=== PATIENT | male | born 1945 | race Caucasian/White ===

== ENCOUNTER 2017-05-10 14:10 | Emergency (ER) | payer SELFPAY, OTHER | END 2017-05-10 23:36 | disposition left against medical advice (07) | LOC: E/R 14:10 | DX: Z53.21 Procedure and treatment not carried out due to patient leaving prior to being seen by health care provider (principal) ==

== ENCOUNTER 2017-05-23 10:08 | Emergency (ER) | payer OTHER ==
[2017-05-23] MEDS: SOD CHLORIDE 0.9% 1,000 ML IV (12:56)
[2017-05-23] MEDS: morphine 4 MG/ML VIAL IV (12:57)
[2017-05-23] MEDS: ONDANSETRON 4 MG INJ IV (12:57)
[2017-05-23 13:14] LABS: ADD MAN DIFF? NO
[2017-05-23 13:15] LABS: WHITE BLOOD COUNT 6.9 10^3/ul (4.8-10.8)
[2017-05-23 13:15] LABS: BASOPHIL # 0.1 10^3/ul (0.0-0.1); BASOPHILS % 1.2 % (0.0-2.0); EOSINOPHILS # 0.1 10^3/ul (0.0-0.5); EOSINOPHILS % 1.9 % (0.0-7.0); HEMOGLOBIN 8.7 g/dl (14.0-18.0); MEAN CORPUSCULAR HEMOGLOBIN 21.8 pg (29.0-33.0); MEAN CORPUSCULAR VOLUME 75.2 fl (82.0-101.0); MEAN PLATELET VOLUME 9.5 fl (7.4-10.4); MONOCYTE # 0.5 10^3/ul (0.3-0.9); MONOCYTES % 7.4 % (0.0-11.0); NEUTROPHIL # 5.1 10^3/ul (1.6-7.5); NEUTROPHILS % 74.1 % (39.0-77.0); PLATELET COUNT 401 10^3/UL (140-415); RED BLOOD COUNT 3.99 10^6/ul (4.70-6.10); RED CELL DISTRIBUTION WIDTH 15.6 % (11.5-14.5)
[2017-05-23 13:38] LABS: ALBUMIN/GLOBULIN RATIO 1.45; ANION GAP 16 (8-16)
[2017-05-23 13:39] LABS: ALANINE AMINOTRANSFERASE 18 IU/L (13-69); ALBUMIN 4.8 g/dl (3.3-4.9); ALKALINE PHOSPHATASE 69 IU/L (42-121); ASPARTATE AMINO TRANSFERASE 17 IU/L (15-46); BILIRUBIN,INDIRECT 0.1 mg/dl (0-1.1); BILIRUBIN,TOTAL 0.1 mg/dl (0.2-1.3); BLOOD UREA NITROGEN 14 mg/dl (7-20); CALCIUM 9.8 mg/dl (8.4-10.2); CARBON DIOXIDE 24 mmol/L (21-31); CHLORIDE 106 mmol/L (97-110); CREATININE 1.06 mg/dl (0.61-1.24); GLUCOSE 92 mg/dl (70-220); LIPASE 108 U/L (23-300); POTASSIUM 4.1 mmol/L (3.5-5.1); SODIUM 142 mmol/L (135-144); TOTAL PROTEIN 8.1 g/dl (6.1-8.1)
[2017-05-23] MEDS: IOHEXOL 300MG/ML 150 ML BTL (14:11)
[2017-05-23] MEDS: SOD CHLORIDE 0.9% 100 ML (14:11)
== END 2017-05-23 18:27 | disposition left against medical advice (07) ==
LOC: E/R 10:08
DX: R10.84 Generalized abdominal pain (principal); R19.7 Diarrhea, unspecified
CPT/HCPCS: 36415; 74177; 80053; 83690; 85025; 96374; 96375; 99285-25

== ENCOUNTER 2017-06-20 16:26 | Emergency (ER) | payer OTHER | END 2017-06-20 20:45 | disposition left against medical advice (07) | LOC: E/R 16:26 | DX: Z53.21 Procedure and treatment not carried out due to patient leaving prior to being seen by health care provider (principal) ==

== ENCOUNTER 2017-06-26 06:49 | Emergency (ER) | payer OTHER ==
[2017-06-26] MEDS: FAMOTIDINE 20 MG INJ IV (08:07)
[2017-06-26] MEDS: LIDOCAINE/MYLANTA 40 ML BTL PO (08:39)
[2017-06-26 08:40] LABS: ADD MAN DIFF? NO
[2017-06-26 08:42] LABS: ABNORMAL IP MESSAGE 1; BASOPHIL # 0.1 10^3/ul (0.0-0.1); BASOPHILS % 0.9 % (0.0-2.0); EOSINOPHILS # 0.1 10^3/ul (0.0-0.5); EOSINOPHILS % 1.2 % (0.0-7.0); HEMATOCRIT 30.9 % (42.0-52.0); HEMOGLOBIN 8.9 g/dl (14.0-18.0); LYMPHOCYTES # 0.8 10^3/ul (0.8-2.9); LYMPHOCYTES % 9.3 % (15.0-51.0); MEAN CORPUSCULAR HEMOGLOBIN 21.3 pg (29.0-33.0); MEAN CORPUSCULAR HGB CONC 28.8 g/dl (32.0-37.0); MEAN CORPUSCULAR VOLUME 73.9 fl (82.0-101.0); MEAN PLATELET VOLUME 9.3 fl (7.4-10.4); MONOCYTE # 0.7 10^3/ul (0.3-0.9); MONOCYTES % 7.7 % (0.0-11.0); NEUTROPHIL # 7.3 10^3/ul (1.6-7.5); NEUTROPHILS % 80.6 % (39.0-77.0); PLATELET COUNT 424 10^3/UL (140-415); POSITIVE DIFF @See below; RED BLOOD COUNT 4.18 10^6/ul (4.70-6.10); RED CELL DISTRIBUTION WIDTH 17.8 % (11.5-14.5)
[2017-06-26 08:42] LABS: WHITE BLOOD COUNT 9.1 10^3/ul (4.8-10.8)
[2017-06-26 09:00] LABS: ALANINE AMINOTRANSFERASE 23 IU/L (13-69); ALBUMIN 4.7 g/dl (3.3-4.9); ALBUMIN/GLOBULIN RATIO 1.51; ALKALINE PHOSPHATASE 70 IU/L (42-121); ANION GAP 17 (8-16); ASPARTATE AMINO TRANSFERASE 17 IU/L (15-46); BILIRUBIN,INDIRECT 0.1 mg/dl (0-1.1); BILIRUBIN,TOTAL 0.1 mg/dl (0.2-1.3); BLOOD UREA NITROGEN 15 mg/dl (7-20); CALCIUM 9.5 mg/dl (8.4-10.2); CARBON DIOXIDE 28 mmol/L (21-31); CHLORIDE 102 mmol/L (97-110); CREATININE 1.03 mg/dl (0.61-1.24); GLUCOSE 105 mg/dl (70-220); LIPASE 129 U/L (23-300); POTASSIUM 3.9 mmol/L (3.5-5.1); SODIUM 143 mmol/L (135-144); TOTAL PROTEIN 7.8 g/dl (6.1-8.1)
== END 2017-06-26 10:47 | disposition home or self-care (01) ==
LOC: E/R 06:49
DX: R10.84 Generalized abdominal pain (principal); R40.2142 Coma scale, eyes open, spontaneous, at arrival to emergency department; R40.2362 Coma scale, best motor response, obeys commands, at arrival to emergency department; R40.2252 Coma scale, best verbal response, oriented, at arrival to emergency department; Z87.891 Personal history of nicotine dependence
CPT/HCPCS: 36415; 74176; 80053; 83690; 85025; 99284-25

== ENCOUNTER 2017-08-03 03:30 | Inpatient (IN) | payer OTHER ==
[2017-08-03 10:23] LABS: ADD MAN DIFF? NO
[2017-08-03 10:28] LABS: WHITE BLOOD COUNT 8.9 10^3/ul (4.8-10.8)
[2017-08-03 10:28] LABS: BASOPHIL # 0.1 10^3/ul (0.0-0.1); BASOPHILS % 0.9 % (0.0-2.0); EOSINOPHILS # 0.2 10^3/ul (0.0-0.5); HEMATOCRIT 41.1 % (42.0-52.0); HEMOGLOBIN 12.4 g/dl (14.0-18.0); LYMPHOCYTES # 1.3 10^3/ul (0.8-2.9); LYMPHOCYTES % 14.2 % (15.0-51.0); MEAN CORPUSCULAR HEMOGLOBIN 23.4 pg (29.0-33.0); MEAN CORPUSCULAR HGB CONC 30.2 g/dl (32.0-37.0); MEAN CORPUSCULAR VOLUME 77.4 fl (82.0-101.0); MEAN PLATELET VOLUME 9.4 fl (7.4-10.4); MONOCYTE # 0.9 10^3/ul (0.3-0.9); MONOCYTES % 9.6 % (0.0-11.0); NEUTROPHIL # 6.5 10^3/ul (1.6-7.5); NEUTROPHILS % 72.8 % (39.0-77.0); PLATELET COUNT 300 10^3/UL (140-415); RED BLOOD COUNT 5.31 10^6/ul (4.70-6.10); RED CELL DISTRIBUTION WIDTH 20.9 % (11.5-14.5)
[2017-08-03] MEDS: PANTOPRAZOLE 40 MG INJ IV ×2 (10:30→11:27)
[2017-08-03 10:49] LABS: INR 0.83; PROTIME 11.5 Sec (11.9-14.9); PT RATIO 0.9
[2017-08-03] MEDS: FAMOTIDINE 20 MG INJ IV (11:27)
[2017-08-03] MEDS: ONDANSETRON 4 MG INJ IV (11:27)
[2017-08-03] MEDS: morphine 4 MG/ML VIAL IV (11:27)
[2017-08-03] MEDS: SOD CHLORIDE 0.9% 1,000 ML IV (11:27)
[2017-08-03 12:12] LABS: ALANINE AMINOTRANSFERASE 12 IU/L (13-69); ALBUMIN 3.9 g/dl (3.3-4.9); ALBUMIN/GLOBULIN RATIO 1.18; ALKALINE PHOSPHATASE 76 IU/L (42-121); ANION GAP 15 (8-16); ASPARTATE AMINO TRANSFERASE 14 IU/L (15-46); BILIRUBIN,INDIRECT 0.1 mg/dl (0-1.1); BILIRUBIN,TOTAL 0.1 mg/dl (0.2-1.3); BLOOD UREA NITROGEN 19 mg/dl (7-20); CALCIUM 9.3 mg/dl (8.4-10.2); CARBON DIOXIDE 28 mmol/L (21-31); CHLORIDE 104 mmol/L (97-110); CREATININE 0.96 mg/dl (0.61-1.24); GLUCOSE 93 mg/dl (70-220); LIPASE 110 U/L (23-300); POTASSIUM 4.2 mmol/L (3.5-5.1); SODIUM 143 mmol/L (135-144); TOTAL PROTEIN 7.2 g/dl (6.1-8.1)
[2017-08-03 12:32] LABS: TROPONIN-I < 0.012 ng/ml (0.00-0.12)
[2017-08-03] MEDS ORDERED: morphine 2 MG INJ IV (17:00)
[2017-08-03] MEDS ORDERED: DOCUSATE SODIUM 100 MG CAP PO (17:00)
[2017-08-03] MEDS ORDERED: ONDANSETRON 4 MG INJ IV (17:00)
[2017-08-03] MEDS ORDERED: **FLU VACCINE PREVIOUSLY DISPENSED XX (20:00)
[2017-08-03] MEDS: morphine LIQ (10 MG/5 ML) CUP PO (20:15)
[2017-08-03] MEDS: POLYETHYLENE GLYCOL 17 GM PACKET PO (20:15)
[2017-08-04] MEDS: PANTOPRAZOLE 40 MG INJ IV (05:43)
[2017-08-04 06:18] LABS: ADD MAN DIFF? NO
[2017-08-04 06:21] LABS: BASOPHIL # 0.1 10^3/ul (0.0-0.1); BASOPHILS % 1.5 % (0.0-2.0); EOSINOPHILS # 0.3 10^3/ul (0.0-0.5); EOSINOPHILS % 5.2 % (0.0-7.0); HEMATOCRIT 36.1 % (42.0-52.0); HEMOGLOBIN 10.6 g/dl (14.0-18.0); LYMPHOCYTES # 1.4 10^3/ul (0.8-2.9); LYMPHOCYTES % 26.9 % (15.0-51.0); MEAN CORPUSCULAR HEMOGLOBIN 23.3 pg (29.0-33.0); MEAN CORPUSCULAR HGB CONC 29.4 g/dl (32.0-37.0); MEAN CORPUSCULAR VOLUME 79.3 fl (82.0-101.0); MEAN PLATELET VOLUME 9.2 fl (7.4-10.4); MONOCYTE # 0.7 10^3/ul (0.3-0.9); MONOCYTES % 12.5 % (0.0-11.0); NEUTROPHIL # 2.8 10^3/ul (1.6-7.5); NEUTROPHILS % 53.3 % (39.0-77.0); PLATELET COUNT 261 10^3/UL (140-415); RED BLOOD COUNT 4.55 10^6/ul (4.70-6.10); RED CELL DISTRIBUTION WIDTH 20.1 % (11.5-14.5)
[2017-08-04 06:21] LABS: WHITE BLOOD COUNT 5.2 10^3/ul (4.8-10.8)
[2017-08-04 06:42] LABS: HEMOGLOBIN A1C 5.2 % (0-5.9)
[2017-08-04 06:55] LABS: ALANINE AMINOTRANSFERASE 15 IU/L (13-69); ALBUMIN 3.9 g/dl (3.3-4.9); ALBUMIN/GLOBULIN RATIO 1.39; ALKALINE PHOSPHATASE 62 IU/L (42-121); ANION GAP 12 (8-16); ASPARTATE AMINO TRANSFERASE 15 IU/L (15-46); BILIRUBIN,INDIRECT 0.1 mg/dl (0-1.1); BILIRUBIN,TOTAL 0.1 mg/dl (0.2-1.3); BLOOD UREA NITROGEN 13 mg/dl (7-20); CALCIUM 9.2 mg/dl (8.4-10.2); CARBON DIOXIDE 28 mmol/L (21-31); CHLORIDE 107 mmol/L (97-110); CREATININE 1.03 mg/dl (0.61-1.24); GLUCOSE 86 mg/dl (70-220); PHOSPHORUS 3.6 mg/dl (2.5-4.9); POTASSIUM 4.4 mmol/L (3.5-5.1); SODIUM 143 mmol/L (135-144); TOTAL PROTEIN 6.7 g/dl (6.1-8.1)
[2017-08-04 07:17] LABS: CARCINOEMBRYONIC ANTIGEN 0.8 ng/ml (0.0-5.0)
[2017-08-04] MEDS: morphine LIQ (10 MG/5 ML) CUP PO ×2 (08:29→18:10)
[2017-08-04] MEDS: POLYETHYLENE GLYCOL 17 GM PACKET PO ×2 (08:29→20:00)
[2017-08-04] MEDS: DOCUSATE SODIUM 250 MG CAP PO (11:13)
[2017-08-04 14:08] LABS: IRON 28 ug/dl (35-150)
[2017-08-04 14:17] LABS: % IRON SATURATION 7 % SAT (22-52); TOTAL IRON BINDING CAPACITY 375 ug/dl (241-421)
[2017-08-04 14:44] LABS: FERRITIN 11.5 ng/ml (11.1-264.0)
[2017-08-04] MEDS: MAGNESIUM CITRATE 300 ML BTL PO ×2 (15:00→15:29)
[2017-08-04] MEDS: BISACODYL (EC) 5 MG TAB PO (17:30)
[2017-08-04] MEDS: ACETAMINOPHEN 325 MG TAB PO (19:59)
[2017-08-04] MEDS: ZOLPIDEM 5 MG TAB PO (21:06)
[2017-08-05] MEDS: morphine LIQ (10 MG/5 ML) CUP PO ×2 (01:24→05:22)
[2017-08-05] MEDS: PANTOPRAZOLE 40 MG INJ IV (05:18)
[2017-08-05] MEDS: DOCUSATE SODIUM 250 MG CAP PO (05:22)
[2017-08-05 05:39] LABS: ADD MAN DIFF? NO
[2017-08-05 05:46] LABS: BASOPHIL # 0.1 10^3/ul (0.0-0.1); BASOPHILS % 1.5 % (0.0-2.0); EOSINOPHILS # 0.3 10^3/ul (0.0-0.5); EOSINOPHILS % 4.9 % (0.0-7.0); HEMATOCRIT 35.2 % (42.0-52.0); HEMOGLOBIN 10.6 g/dl (14.0-18.0); LYMPHOCYTES # 1.4 10^3/ul (0.8-2.9); LYMPHOCYTES % 26.6 % (15.0-51.0); MEAN CORPUSCULAR HEMOGLOBIN 23.4 pg (29.0-33.0); MEAN CORPUSCULAR HGB CONC 30.1 g/dl (32.0-37.0); MEAN CORPUSCULAR VOLUME 77.7 fl (82.0-101.0); MEAN PLATELET VOLUME 9.1 fl (7.4-10.4); MONOCYTE # 0.6 10^3/ul (0.3-0.9); MONOCYTES % 11.4 % (0.0-11.0); NEUTROPHILS % 55.4 % (39.0-77.0); PLATELET COUNT 263 10^3/UL (140-415); RED BLOOD COUNT 4.53 10^6/ul (4.70-6.10); RED CELL DISTRIBUTION WIDTH 19.9 % (11.5-14.5)
[2017-08-05 05:46] LABS: WHITE BLOOD COUNT 5.3 10^3/ul (4.8-10.8)
[2017-08-05 06:16] LABS: PHOSPHORUS 3.4 mg/dl (2.5-4.9)
[2017-08-05 06:16] LABS: CHOL/HDL RATIO 3.9 RATIO; CHOLESTEROL 223 mg/dl (100-200); HDL CHOLESTEROL 56 mg/dl (31-75); LDL CHOLESTEROL,CALCULATED 143 mg/dl; MAGNESIUM 2.1 mg/dl (1.7-2.5); TRIGLYCERIDES 120 mg/dl (0-149)
[2017-08-05 06:22] LABS: ALANINE AMINOTRANSFERASE 22 IU/L (13-69); ALBUMIN 3.7 g/dl (3.3-4.9); ALBUMIN/GLOBULIN RATIO 1.19; ALKALINE PHOSPHATASE 66 IU/L (42-121); ANION GAP 14 (8-16); ASPARTATE AMINO TRANSFERASE 13 IU/L (15-46); BILIRUBIN,INDIRECT 0.1 mg/dl (0-1.1); BILIRUBIN,TOTAL 0.1 mg/dl (0.2-1.3); BLOOD UREA NITROGEN 12 mg/dl (7-20); CALCIUM 9.2 mg/dl (8.4-10.2); CARBON DIOXIDE 27 mmol/L (21-31); CHLORIDE 105 mmol/L (97-110); CREATININE 1.01 mg/dl (0.61-1.24); GLUCOSE 82 mg/dl (70-220); POTASSIUM 4.2 mmol/L (3.5-5.1); SODIUM 142 mmol/L (135-144); TOTAL PROTEIN 6.8 g/dl (6.1-8.1)
[2017-08-05] MEDS: POLYETHYLENE GLYCOL 17 GM PACKET PO (08:37)
== END 2017-08-05 13:58 | disposition home or self-care (01) | DRG 392 ==
LOC: MS2 17:58 → E/R 03:30 → MS2 12:24
PROVIDERS: Internal Medicine
DX: K59.00 Constipation, unspecified (principal); D64.9 Anemia, unspecified
CPT/HCPCS: 36415; 74176; 80053; 80061; 82378; 82728; 83036; 83540; 83690; 83735; 84100; 84484; 85025; 85610; 93005; 96374; 96375; 99285-25

== ENCOUNTER 2017-08-28 10:07 | Emergency (ER) | payer OTHER ==
[2017-08-28 11:35] LABS: ADD MAN DIFF? NO
[2017-08-28 11:38] LABS: WHITE BLOOD COUNT 7.1 10^3/ul (4.8-10.8)
[2017-08-28 11:38] LABS: BASOPHILS % 0.4 % (0.0-2.0); EOSINOPHILS # 0.1 10^3/ul (0.0-0.5); EOSINOPHILS % 0.7 % (0.0-7.0); HEMATOCRIT 41.2 % (42.0-52.0); HEMOGLOBIN 12.3 g/dl (14.0-18.0); LYMPHOCYTES # 0.7 10^3/ul (0.8-2.9); LYMPHOCYTES % 9.7 % (15.0-51.0); MEAN CORPUSCULAR HEMOGLOBIN 23.4 pg (29.0-33.0); MEAN CORPUSCULAR HGB CONC 29.9 g/dl (32.0-37.0); MEAN CORPUSCULAR VOLUME 78.5 fl (82.0-101.0); MEAN PLATELET VOLUME 8.8 fl (7.4-10.4); MONOCYTE # 0.4 10^3/ul (0.3-0.9); MONOCYTES % 6.2 % (0.0-11.0); NEUTROPHIL # 5.9 10^3/ul (1.6-7.5); NEUTROPHILS % 82.7 % (39.0-77.0); PLATELET COUNT 339 10^3/UL (140-415); RED BLOOD COUNT 5.25 10^6/ul (4.70-6.10); RED CELL DISTRIBUTION WIDTH 18.5 % (11.5-14.5)
[2017-08-28 12:01] LABS: ALANINE AMINOTRANSFERASE 15 IU/L (13-69); ALBUMIN 4.3 g/dl (3.3-4.9); ALBUMIN/GLOBULIN RATIO 1.19; ALKALINE PHOSPHATASE 73 IU/L (42-121); ANION GAP 15 (8-16); ASPARTATE AMINO TRANSFERASE 23 IU/L (15-46); BILIRUBIN,INDIRECT 0.1 mg/dl (0-1.1); BILIRUBIN,TOTAL 0.1 mg/dl (0.2-1.3); BLOOD UREA NITROGEN 17 mg/dl (7-20); CALCIUM 10.2 mg/dl (8.4-10.2); CARBON DIOXIDE 28 mmol/L (21-31); CHLORIDE 106 mmol/L (97-110); CREATININE 1.02 mg/dl (0.61-1.24); GLUCOSE 115 mg/dl (70-220); LIPASE 119 U/L (23-300); POTASSIUM 4.6 mmol/L (3.5-5.1); SODIUM 144 mmol/L (135-144); TOTAL PROTEIN 7.9 g/dl (6.1-8.1)
[2017-08-28 12:14] LABS: TROPONIN-I < 0.012 ng/ml (0.00-0.12)
[2017-08-28] MEDS: morphine 4 MG/ML VIAL IV (12:15)
== END 2017-08-28 13:37 | disposition home or self-care (01) ==
LOC: E/R 10:07
DX: R10.13 Epigastric pain (principal)
CPT/HCPCS: 36415; 71045; 74018; 80053; 83690; 84484; 85025; 93005; 96374; 99285-25

== ENCOUNTER 2017-09-11 10:44 | Emergency (ER) | payer OTHER ==
[2017-09-11] MEDS: LIDOCAINE/MYLANTA 40 ML BTL PO (11:10)
[2017-09-11] MEDS: ONDANSETRON (ODT) 4 MG TAB ODT (11:11)
== END 2017-09-11 12:55 | disposition home or self-care (01) ==
LOC: E/R 10:44
DX: R10.13 Epigastric pain (principal); R11.0 Nausea; R40.2142 Coma scale, eyes open, spontaneous, at arrival to emergency department; R40.2252 Coma scale, best verbal response, oriented, at arrival to emergency department; R40.2362 Coma scale, best motor response, obeys commands, at arrival to emergency department
CPT/HCPCS: 99284; Z7502

== ENCOUNTER 2017-09-12 03:45 | Emergency (ER) | payer OTHER ==
[2017-09-12] MEDS: CEFEPIME 2GM/50 ML (PMX) 50 ML IVPB (04:53)
[2017-09-12] MEDS: SODIUM CHLORIDE 0.9% 1L BAG IV* (04:53)
[2017-09-12 06:19] LABS: ADD MAN DIFF? NO
[2017-09-12 06:35] LABS: ABNORMAL IP MESSAGE 1; BASOPHILS % 0.2 % (0.0-2.0); HEMATOCRIT 37.5 % (42.0-52.0); HEMOGLOBIN 11.1 g/dl (14.0-18.0); LYMPHOCYTES # 0.5 10^3/ul (0.8-2.9); MEAN CORPUSCULAR HEMOGLOBIN 23.4 pg (29.0-33.0); MEAN CORPUSCULAR HGB CONC 29.6 g/dl (32.0-37.0); MEAN CORPUSCULAR VOLUME 79.1 fl (82.0-101.0); MEAN PLATELET VOLUME 9.5 fl (7.4-10.4); MONOCYTE # 1.2 10^3/ul (0.3-0.9); MONOCYTES % 6.8 % (0.0-11.0); NEUTROPHIL # 15.6 10^3/ul (1.6-7.5); NEUTROPHILS % 89.4 % (39.0-77.0); PLATELET COUNT 328 10^3/UL (140-415); POSITIVE DIFF @See below; RED BLOOD COUNT 4.74 10^6/ul (4.70-6.10); RED CELL DISTRIBUTION WIDTH 17.9 % (11.5-14.5)
[2017-09-12 06:35] LABS: WHITE BLOOD COUNT 17.4 10^3/ul (4.8-10.8)
[2017-09-12 06:48] LABS: INR 0.85; PROTIME 11.7 Sec (11.9-14.9); PT RATIO 0.9
[2017-09-12 06:49] LABS: PARTIAL THROMBOPLASTIN TIME 25.2 Sec (25.0-35.0)
[2017-09-12 06:55] LABS: ALANINE AMINOTRANSFERASE 11 IU/L (13-69); ALBUMIN 4.4 g/dl (3.3-4.9); ALBUMIN/GLOBULIN RATIO 1.25; ALKALINE PHOSPHATASE 75 IU/L (42-121); ANION GAP 16 (8-16); ASPARTATE AMINO TRANSFERASE 17 IU/L (15-46); BILIRUBIN,INDIRECT 0.3 mg/dl (0-1.1); BILIRUBIN,TOTAL 0.3 mg/dl (0.2-1.3); BLOOD UREA NITROGEN 35 mg/dl (7-20); CALCIUM 9.2 mg/dl (8.4-10.2); CARBON DIOXIDE 35 mmol/L (21-31); CHLORIDE 96 mmol/L (97-110); GLUCOSE 149 mg/dl (70-220); POTASSIUM 4.1 mmol/L (3.5-5.1); SODIUM 143 mmol/L (135-144); TOTAL PROTEIN 7.9 g/dl (6.1-8.1)
[2017-09-12 07:03] LABS: LACTIC ACID 2.4 mmol/L (0.5-2.0)
[2017-09-12 07:06] LABS: TROPONIN-I < 0.012 ng/ml (0.00-0.12)
[2017-09-12 08:43] LABS: LACTIC ACID 1.5 mmol/L (0.5-2.0)
== END 2017-09-12 09:56 | disposition home or self-care (01) ==
LOC: E/R 03:45
DX: R11.2 Nausea with vomiting, unspecified (principal); R10.13 Epigastric pain
CPT/HCPCS: 36415; 71045; 74176; 76705; 80053; 83605; 84484; 85025; 85610; 85730; 87040; 93005; 96374; 99285-25

== ENCOUNTER 2017-09-13 09:09 | Emergency (ER) | payer SELFPAY, OTHER | END 2017-09-13 16:36 | disposition left against medical advice (07) | LOC: E/R 09:09 | DX: Z53.21 Procedure and treatment not carried out due to patient leaving prior to being seen by health care provider (principal) ==

== ENCOUNTER 2017-10-02 10:05 | Emergency (ER) | payer OTHER ==
[2017-10-02] MEDS: HYDROCODONE/APAP (10/325) TAB PO (10:37)
[2017-10-02] MEDS: ONDANSETRON (ODT) 4 MG TAB ODT (10:37)
== END 2017-10-02 10:45 | disposition home or self-care (01) ==
LOC: E/R 10:05
DX: R10.10 Upper abdominal pain, unspecified (principal); Z87.891 Personal history of nicotine dependence
CPT/HCPCS: 99283; Z7502

== ENCOUNTER 2017-10-02 14:29 | Emergency (ER) | payer OTHER ==
[2017-10-02] MEDS: LIDOCAINE/MYLANTA 40 ML BTL PO (15:24)
[2017-10-02] MEDS: BELLADONNA/PHENOBARBITAL TAB PO (15:24)
[2017-10-02 15:25] LABS: ADD MAN DIFF? NO
[2017-10-02 15:27] LABS: WHITE BLOOD COUNT 8.2 10^3/ul (4.8-10.8)
[2017-10-02 15:27] LABS: BASOPHILS % 0.5 % (0.0-2.0); EOSINOPHILS # 0.1 10^3/ul (0.0-0.5); EOSINOPHILS % 0.9 % (0.0-7.0); HEMATOCRIT 38.5 % (42.0-52.0); HEMOGLOBIN 11.2 g/dl (14.0-18.0); LYMPHOCYTES # 0.6 10^3/ul (0.8-2.9); LYMPHOCYTES % 7.3 % (15.0-51.0); MEAN CORPUSCULAR HEMOGLOBIN 24.4 pg (29.0-33.0); MEAN CORPUSCULAR HGB CONC 29.1 g/dl (32.0-37.0); MEAN CORPUSCULAR VOLUME 83.9 fl (82.0-101.0); MEAN PLATELET VOLUME 8.9 fl (7.4-10.4); MONOCYTE # 0.5 10^3/ul (0.3-0.9); MONOCYTES % 6.1 % (0.0-11.0); NEUTROPHILS % 84.8 % (39.0-77.0); PLATELET COUNT 359 10^3/UL (140-415); RED BLOOD COUNT 4.59 10^6/ul (4.70-6.10)
[2017-10-02 15:30] LABS: ADD UMIC YES; UR ASCORBIC ACID NEGATIVE (NEGATIVE); UR BILIRUBIN (Dip) NEGATIVE (NEGATIVE); UR BLOOD (Dip) NEGATIVE (NEGATIVE); UR CLARITY CLEAR (CLEAR); UR COLOR YELLOW (YELLOW); UR GLUCOSE (Dip) NEGATIVE (NEGATIVE); UR KETONES (Dip) TRACE mg/dL (NEGATIVE); UR LEUKOCYTE ESTERASE (Dip) NEGATIVE Leu/ul (NEGATIVE); UR MUCUS FEW /HPF (NONE SEEN); UR NITRITE (Dip) NEGATIVE (NEGATIVE); UR RBC 1 /HPF (0-5); UR SPECIFIC GRAVITY (Dip) 1.039 (1.003-1.030); UR TOTAL PROTEIN (Dip) 2+ mg/dl (NEGATIVE); UR UROBILINOGEN (Dip) NEGATIVE (NEGATIVE); UR WBC 3 /HPF (0-5)
[2017-10-02 15:47] LABS: ALANINE AMINOTRANSFERASE 15 IU/L (13-69); ALBUMIN 4.3 g/dl (3.3-4.9); ALBUMIN/GLOBULIN RATIO 1.26; ALKALINE PHOSPHATASE 78 IU/L (42-121); AMYLASE 108 U/L (11-123); ANION GAP 14 (8-16); ASPARTATE AMINO TRANSFERASE 18 IU/L (15-46); BILIRUBIN,INDIRECT 0.4 mg/dl (0-1.1); BILIRUBIN,TOTAL 0.4 mg/dl (0.2-1.3); BLOOD UREA NITROGEN 17 mg/dl (7-20); CALCIUM 9.4 mg/dl (8.4-10.2); CARBON DIOXIDE 30 mmol/L (21-31); CHLORIDE 106 mmol/L (97-110); CREATININE 1.12 mg/dl (0.61-1.24); GLUCOSE 108 mg/dl (70-220); LIPASE 57 U/L (23-300); SODIUM 146 mmol/L (135-144); TOTAL PROTEIN 7.7 g/dl (6.1-8.1)
[2017-10-02 16:03] LABS: TROPONIN-I < 0.012 ng/ml (0.000-0.120)
== END 2017-10-02 16:28 | disposition home or self-care (01) ==
LOC: E/R 14:29
DX: R10.13 Epigastric pain (principal); Z87.891 Personal history of nicotine dependence
CPT/HCPCS: 74018; 80053; 81001; 82150; 83690; 84484; 85025; 99285-25

== ENCOUNTER 2017-10-25 20:07 | Inpatient (IN) | payer OTHER ==
[2017-10-25] MEDS ORDERED: LORAZEPAM 2 MG INJ (20:33)
[2017-10-25 20:44] LABS: ABNORMAL IP MESSAGE 1; HEMATOCRIT 23.8 % (42.0-52.0); HEMOGLOBIN 7.3 g/dl (14.0-18.0); MEAN CORPUSCULAR HEMOGLOBIN 24.7 pg (29.0-33.0); MEAN CORPUSCULAR HGB CONC 30.7 g/dl (32.0-37.0); MEAN CORPUSCULAR VOLUME 80.4 fl (82.0-101.0); MEAN PLATELET VOLUME 8.2 fl (7.4-10.4); PLATELET COUNT 559 10^3/UL (140-415); POSITIVE DIFF @See below; RED BLOOD COUNT 2.96 10^6/ul (4.70-6.10); RED CELL DISTRIBUTION WIDTH 18.1 % (11.5-14.5)
[2017-10-25 20:44] LABS: WHITE BLOOD COUNT 8.1 10^3/ul (4.8-10.8)
[2017-10-25 20:47] LABS: ADD MAN DIFF? YES
[2017-10-25] MEDS: PIPER-TAZO 3.375 GM IV (PMX) 100 ML IVPB (20:54)
[2017-10-25] MEDS: SODIUM CHLORIDE 0.9% 1L BAG IV* (20:54)
[2017-10-25] MEDS: LORAZEPAM 2 MG INJ IV (20:54)
[2017-10-25 21:00] LABS: LACTIC ACID 1.6 mmol/L (0.5-2.0)
[2017-10-25 21:02] LABS: ALANINE AMINOTRANSFERASE 18 IU/L (13-69); ALBUMIN 3.4 g/dl (3.3-4.9); ALBUMIN/GLOBULIN RATIO 0.75; ALKALINE PHOSPHATASE 134 IU/L (42-121); ANION GAP 17 (8-16); ASPARTATE AMINO TRANSFERASE 23 IU/L (15-46); BILIRUBIN,INDIRECT 0.3 mg/dl (0-1.1); BILIRUBIN,TOTAL 0.3 mg/dl (0.2-1.3); BLOOD UREA NITROGEN 14 mg/dl (7-20); CALCIUM 9.2 mg/dl (8.4-10.2); CARBON DIOXIDE 23 mmol/L (21-31); CHLORIDE 102 mmol/L (97-110); CREATININE 0.98 mg/dl (0.61-1.24); GLUCOSE 122 mg/dl (70-220); INR 1.03; LIPASE 331 U/L (23-300); POTASSIUM 4.5 mmol/L (3.5-5.1); PROTIME 13.6 Sec (11.9-14.9); PT RATIO 1.1; SODIUM 137 mmol/L (135-144); TOTAL PROTEIN 7.9 g/dl (6.1-8.1)
[2017-10-25 21:18] LABS: TROPONIN-I < 0.012 ng/ml (0.000-0.120)
[2017-10-25] MEDS: ACETAMINOPHEN 650 MG SUPP PR (21:30)
[2017-10-25 22:14] LABS: ANISOCYTOSIS 1+ (0-0); BAND NEUTROPHILS #M 2.1 10^3/ul (0.0-0.6); BAND NEUTROPHILS % (M) 27 % (0-4); BASOPHILS % (M) 1 % (0-2); EOSINOPHILS % (M) 1 % (0-7); ERYTHROBLAST% (NRBC) (M) 1 % (0-0); GIANT THROMBO% (M) 1 % (0-0); LYMPHOCYTES #M 0.6 10^3/ul (0.8-2.9); LYMPHOCYTES % (M) 8 % (15-51); MONOCYTE #M 0.1 10^3/ul (0.3-0.9); MONOCYTES % (M) 2 % (0-11); PLASMAC%(M) 1 % (0); PLATELET ESTIMATE INCREASED; POLYCHROMASIA 3+ (0-0); SEGMENTED NEUTROPHILS (M) % 60 % (39-77); SMUDGE%M 1 % (0-0)
[2017-10-25 22:29] LABS: ADD UMIC YES; UR ASCORBIC ACID NEGATIVE (NEGATIVE); UR BILIRUBIN (Dip) NEGATIVE (NEGATIVE); UR BLOOD (Dip) 2+ mg/dL (NEGATIVE); UR CLARITY CLEAR (CLEAR); UR COLOR YELLOW (YELLOW); UR GLUCOSE (Dip) NEGATIVE (NEGATIVE); UR KETONES (Dip) NEGATIVE (NEGATIVE); UR LEUKOCYTE ESTERASE (Dip) NEGATIVE Leu/ul (NEGATIVE); UR MUCUS FEW /HPF (NONE SEEN); UR NITRITE (Dip) NEGATIVE (NEGATIVE); UR RBC 19 /HPF (0-5); UR SPECIFIC GRAVITY (Dip) 1.014 (1.003-1.030); UR SQUAMOUS EPITHELIAL CELL FEW /HPF (FEW); UR TOTAL PROTEIN (Dip) NEGATIVE (NEGATIVE); UR UROBILINOGEN (Dip) NEGATIVE (NEGATIVE); UR WBC 4 /HPF (0-5)
[2017-10-25] MEDS: CEFTRIAXONE 1 GM/50 ML (PMX) 50 ML IVPB (23:00)
[2017-10-26] MEDS ORDERED: ALBUTEROL/IPRATROPIUM (NEB) 3 ML AMP HHN (00:30)
[2017-10-26] MEDS ORDERED: morphine 2 MG INJ IV (00:30)
[2017-10-26] MEDS ORDERED: ONDANSETRON 4 MG INJ IV (00:30)
[2017-10-26] MEDS ORDERED: NACL 0.9% 3 ML SYG IV (00:30)
[2017-10-26] MEDS: PANTOPRAZOLE 40 MG INJ IV ×2 (02:08→17:11)
[2017-10-26 03:46] LABS: IMMEDIATE SPIN CROSSMATCH 1 2
[2017-10-26 07:17] LABS: ADD MAN DIFF? NO
[2017-10-26 07:28] LABS: BASOPHIL # 0.1 10^3/ul (0.0-0.1); BASOPHILS % 0.7 % (0.0-2.0); EOSINOPHILS % 0.1 % (0.0-7.0); HEMATOCRIT 26.4 % (42.0-52.0); HEMOGLOBIN 8.2 g/dl (14.0-18.0); LYMPHOCYTES # 1.1 10^3/ul (0.8-2.9); LYMPHOCYTES % 15.1 % (15.0-51.0); MEAN CORPUSCULAR HEMOGLOBIN 25.4 pg (29.0-33.0); MEAN CORPUSCULAR HGB CONC 31.1 g/dl (32.0-37.0); MEAN CORPUSCULAR VOLUME 81.7 fl (82.0-101.0); MEAN PLATELET VOLUME 8.7 fl (7.4-10.4); MONOCYTE # 0.6 10^3/ul (0.3-0.9); MONOCYTES % 8.3 % (0.0-11.0); NEUTROPHIL # 5.6 10^3/ul (1.6-7.5); NEUTROPHILS % 74.7 % (39.0-77.0); PLATELET COUNT 438 10^3/UL (140-415); RED BLOOD COUNT 3.23 10^6/ul (4.70-6.10)
[2017-10-26 07:28] LABS: WHITE BLOOD COUNT 7.5 10^3/ul (4.8-10.8)
[2017-10-26 08:11] LABS: ALANINE AMINOTRANSFERASE 17 IU/L (13-69); ALBUMIN 2.8 g/dl (3.3-4.9); ALBUMIN/GLOBULIN RATIO 0.82; ALKALINE PHOSPHATASE 109 IU/L (42-121); ANION GAP 14 (8-16); ASPARTATE AMINO TRANSFERASE 46 IU/L (15-46); BILIRUBIN,INDIRECT 0.5 mg/dl (0-1.1); BILIRUBIN,TOTAL 0.5 mg/dl (0.2-1.3); BLOOD UREA NITROGEN 12 mg/dl (7-20); CALCIUM 8.6 mg/dl (8.4-10.2); CARBON DIOXIDE 26 mmol/L (21-31); CHLORIDE 106 mmol/L (97-110); CREATININE 0.96 mg/dl (0.61-1.24); GLUCOSE 105 mg/dl (70-220); POTASSIUM 4.8 mmol/L (3.5-5.1); SODIUM 141 mmol/L (135-144); TOTAL PROTEIN 6.2 g/dl (6.1-8.1)
[2017-10-26] MEDS: FERROUS SULFATE (EC) 325 MG TAB PO ×3 (09:52→21:04)
[2017-10-26] MEDS: SUCRALFATE (100 MG/ML) 10ML CUP PO ×4 (09:53→21:04)
[2017-10-26] MEDS: ACETAMINOPHEN 325 MG TAB PO (11:38)
[2017-10-26] MEDS: HYDROCODONE/APAP (5/325) TAB PO ×2 (17:29→21:03)
[2017-10-26] MEDS: LORAZEPAM 0.5 MG TAB PO (21:27)
[2017-10-26] MEDS: morphine LIQ (10 MG/5 ML) CUP PO (23:36)
[2017-10-27] MEDS: HYDROCODONE/APAP (5/325) TAB PO ×4 (03:20→22:05)
[2017-10-27] MEDS: PANTOPRAZOLE 40 MG INJ IV ×2 (05:35→17:47)
[2017-10-27 07:36] LABS: ADD MAN DIFF? NO
[2017-10-27 07:38] LABS: WHITE BLOOD COUNT 6.5 10^3/ul (4.8-10.8)
[2017-10-27 07:38] LABS: BASOPHIL # 0.1 10^3/ul (0.0-0.1); BASOPHILS % 1.7 % (0.0-2.0); EOSINOPHILS # 0.4 10^3/ul (0.0-0.5); EOSINOPHILS % 6.2 % (0.0-7.0); HEMATOCRIT 32.4 % (42.0-52.0); HEMOGLOBIN 9.9 g/dl (14.0-18.0); LYMPHOCYTES # 1.3 10^3/ul (0.8-2.9); LYMPHOCYTES % 20.1 % (15.0-51.0); MEAN CORPUSCULAR HEMOGLOBIN 25.1 pg (29.0-33.0); MEAN CORPUSCULAR HGB CONC 30.6 g/dl (32.0-37.0); MEAN CORPUSCULAR VOLUME 82.2 fl (82.0-101.0); MEAN PLATELET VOLUME 9.1 fl (7.4-10.4); MONOCYTE # 0.6 10^3/ul (0.3-0.9); MONOCYTES % 9.6 % (0.0-11.0); NEUTROPHILS % 61.5 % (39.0-77.0); PLATELET COUNT 440 10^3/UL (140-415); RED BLOOD COUNT 3.94 10^6/ul (4.70-6.10); RED CELL DISTRIBUTION WIDTH 17.8 % (11.5-14.5)
[2017-10-27 08:02] LABS: ANION GAP 15 (8-16); BLOOD UREA NITROGEN 14 mg/dl (7-20); CALCIUM 9.2 mg/dl (8.4-10.2); CARBON DIOXIDE 22 mmol/L (21-31); CHLORIDE 108 mmol/L (97-110); CREATININE 1.02 mg/dl (0.61-1.24); GLUCOSE 110 mg/dl (70-220); PHOSPHORUS 2.7 mg/dl (2.5-4.9); POTASSIUM 4.3 mmol/L (3.5-5.1); SODIUM 141 mmol/L (135-144)
[2017-10-27] MEDS: FERROUS SULFATE (EC) 325 MG TAB PO ×3 (09:44→20:49)
[2017-10-27] MEDS: SUCRALFATE (100 MG/ML) 10ML CUP PO ×4 (09:45→20:49)
[2017-10-27] MEDS ORDERED: PIPER-TAZO 3.375 GM IV (PMX) 100 ML IVPB (18:00)
[2017-10-27] MEDS: PIPER-TAZO 3.375 GM IV (PMX) 100 ML IVPB (19:33)
[2017-10-28] MEDS: PANTOPRAZOLE 40 MG INJ IV ×2 (05:13→18:22)
[2017-10-28] MEDS: PIPER-TAZO 3.375 GM IV (PMX) 100 ML IVPB ×2 (05:13→06:00)
[2017-10-28] MEDS: SUCRALFATE (100 MG/ML) 10ML CUP PO ×4 (09:31→21:35)
[2017-10-28] MEDS: FERROUS SULFATE (EC) 325 MG TAB PO ×3 (09:31→21:36)
[2017-10-28] MEDS: HYDROCODONE/APAP (5/325) TAB PO ×2 (12:28→21:37)
[2017-10-28] MEDS: AMPICILLIN/SULB 3 GM/NS (PMX) 100 ML IVPB ×2 (12:30→18:22)
[2017-10-28] MEDS: COLISTIMETHATE 150 MG in SOD CHLORIDE 0.9% 100 ML IVPB ×2 (14:54→21:35)
[2017-10-28] MEDS: LORAZEPAM 0.5 MG TAB PO (21:36)
[2017-10-29] MEDS: morphine LIQ (10 MG/5 ML) CUP PO ×2 (00:17→22:09)
[2017-10-29] MEDS: AMPICILLIN/SULB 3 GM/NS (PMX) 100 ML IVPB ×5 (00:21→23:24)
[2017-10-29] MEDS: PANTOPRAZOLE 40 MG INJ IV ×2 (05:51→17:13)
[2017-10-29 09:12] LABS: ADD MAN DIFF? NO
[2017-10-29 09:18] LABS: WHITE BLOOD COUNT 7.1 10^3/ul (4.8-10.8)
[2017-10-29 09:18] LABS: BASOPHIL # 0.1 10^3/ul (0.0-0.1); BASOPHILS % 1.4 % (0.0-2.0); EOSINOPHILS # 0.4 10^3/ul (0.0-0.5); EOSINOPHILS % 4.9 % (0.0-7.0); HEMATOCRIT 27.7 % (42.0-52.0); HEMOGLOBIN 8.8 g/dl (14.0-18.0); LYMPHOCYTES # 1.6 10^3/ul (0.8-2.9); LYMPHOCYTES % 22.2 % (15.0-51.0); MEAN CORPUSCULAR HEMOGLOBIN 25.3 pg (29.0-33.0); MEAN CORPUSCULAR HGB CONC 31.8 g/dl (32.0-37.0); MEAN CORPUSCULAR VOLUME 79.6 fl (82.0-101.0); MONOCYTE # 0.7 10^3/ul (0.3-0.9); MONOCYTES % 10.5 % (0.0-11.0); NEUTROPHIL # 4.2 10^3/ul (1.6-7.5); NEUTROPHILS % 58.9 % (39.0-77.0); PLATELET COUNT 397 10^3/UL (140-415); RED BLOOD COUNT 3.48 10^6/ul (4.70-6.10); RED CELL DISTRIBUTION WIDTH 17.8 % (11.5-14.5)
[2017-10-29] MEDS: HYDROCODONE/APAP (5/325) TAB PO ×2 (09:23→17:14)
[2017-10-29] MEDS: FERROUS SULFATE (EC) 325 MG TAB PO ×3 (09:23→20:49)
[2017-10-29] MEDS: SUCRALFATE (100 MG/ML) 10ML CUP PO ×4 (09:24→20:49)
[2017-10-29 09:57] LABS: CREATININE 0.82 mg/dl (0.61-1.24)
[2017-10-29 09:57] LABS: BLOOD UREA NITROGEN 10 mg/dl (7-20)
[2017-10-29] MEDS: COLISTIMETHATE 150 MG in SOD CHLORIDE 0.9% 100 ML IVPB ×2 (12:04→20:50)
[2017-10-29] MEDS: LORAZEPAM 0.5 MG TAB PO (22:09)
[2017-10-30] MEDS: AMPICILLIN/SULB 3 GM/NS (PMX) 100 ML IVPB ×4 (05:30→23:33)
[2017-10-30] MEDS: PANTOPRAZOLE 40 MG INJ IV ×2 (05:30→16:50)
[2017-10-30 07:39] LABS: LIPASE 203 U/L (23-300)
[2017-10-30] MEDS: SUCRALFATE (100 MG/ML) 10ML CUP PO ×4 (08:19→20:13)
[2017-10-30] MEDS: FERROUS SULFATE (EC) 325 MG TAB PO ×3 (08:19→20:13)
[2017-10-30] MEDS: COLISTIMETHATE 150 MG in SOD CHLORIDE 0.9% 100 ML IVPB ×2 (08:23→20:13)
[2017-10-30] MEDS: MAGNESIUM HYDROXIDE 30ML CUP PO (13:05)
[2017-10-30] MEDS: HYDROCODONE/APAP (5/325) TAB PO (20:14)
[2017-10-30] MEDS: LORAZEPAM 0.5 MG TAB PO (21:18)
[2017-10-31] MEDS: HYDROCODONE/APAP (5/325) TAB PO ×2 (04:33→20:30)
[2017-10-31] MEDS: PANTOPRAZOLE 40 MG INJ IV ×2 (04:33→18:00)
[2017-10-31] MEDS: AMPICILLIN/SULB 3 GM/NS (PMX) 100 ML IVPB ×4 (04:37→22:58)
[2017-10-31] MEDS: LORAZEPAM 0.5 MG TAB PO ×2 (05:30→21:48)
[2017-10-31] MEDS: FERROUS SULFATE (EC) 325 MG TAB PO ×3 (09:00→20:30)
[2017-10-31] MEDS: COLISTIMETHATE 150 MG in SOD CHLORIDE 0.9% 100 ML IVPB ×2 (09:00→20:37)
[2017-10-31] MEDS: SUCRALFATE (100 MG/ML) 10ML CUP PO ×4 (09:00→20:30)
[2017-10-31 12:05] LABS: ADD MAN DIFF? NO
[2017-10-31 12:07] LABS: BASOPHIL # 0.1 10^3/ul (0.0-0.1); BASOPHILS % 1.4 % (0.0-2.0); EOSINOPHILS # 0.5 10^3/ul (0.0-0.5); EOSINOPHILS % 6.1 % (0.0-7.0); HEMATOCRIT 28.4 % (42.0-52.0); HEMOGLOBIN 8.7 g/dl (14.0-18.0); LYMPHOCYTES # 1.6 10^3/ul (0.8-2.9); MEAN CORPUSCULAR HEMOGLOBIN 24.7 pg (29.0-33.0); MEAN CORPUSCULAR HGB CONC 30.6 g/dl (32.0-37.0); MEAN CORPUSCULAR VOLUME 80.7 fl (82.0-101.0); MEAN PLATELET VOLUME 8.7 fl (7.4-10.4); MONOCYTE # 0.7 10^3/ul (0.3-0.9); NEUTROPHIL # 4.6 10^3/ul (1.6-7.5); PLATELET COUNT 443 10^3/UL (140-415); POSITIVE DIFF @See below; RED BLOOD COUNT 3.52 10^6/ul (4.70-6.10); RED CELL DISTRIBUTION WIDTH 18.2 % (11.5-14.5)
[2017-10-31 12:07] LABS: WHITE BLOOD COUNT 7.7 10^3/ul (4.8-10.8)
[2017-10-31 12:25] LABS: IRON 27 ug/dl (35-150)
[2017-10-31 12:28] LABS: ANION GAP 14 (8-16); BLOOD UREA NITROGEN 11 mg/dl (7-20); CALCIUM 9.6 mg/dl (8.4-10.2); CARBON DIOXIDE 29 mmol/L (21-31); CHLORIDE 101 mmol/L (97-110); CREATININE 0.93 mg/dl (0.61-1.24); GLUCOSE 86 mg/dl (70-220); POTASSIUM 3.9 mmol/L (3.5-5.1); SODIUM 140 mmol/L (135-144)
[2017-10-31 12:35] LABS: % IRON SATURATION 10 % SAT (22-52); TOTAL IRON BINDING CAPACITY 264 ug/dl (241-421)
[2017-10-31] MEDS: morphine LIQ (10 MG/5 ML) CUP PO (22:56)
[2017-10-31] MEDS: ACETAMINOPHEN 325 MG TAB PO (23:55)
[2017-11-01] MEDS: HYDROCODONE/APAP (5/325) TAB PO ×2 (01:14→23:32)
[2017-11-01] MEDS ORDERED: VITAMIN A & D 5 GM OINT PACKET TOP (01:47)
[2017-11-01] MEDS: PANTOPRAZOLE 40 MG INJ IV ×2 (05:31→17:51)
[2017-11-01] MEDS: AMPICILLIN/SULB 3 GM/NS (PMX) 100 ML IVPB ×3 (05:32→17:51)
[2017-11-01] MEDS: COLISTIMETHATE 150 MG in SOD CHLORIDE 0.9% 100 ML IVPB ×2 (08:49→20:04)
[2017-11-01] MEDS: FERROUS SULFATE (EC) 325 MG TAB PO ×3 (08:49→20:04)
[2017-11-01] MEDS: SUCRALFATE (100 MG/ML) 10ML CUP PO ×4 (08:50→20:04)
[2017-11-01] MEDS: LORAZEPAM 0.5 MG TAB PO (23:33)
[2017-11-02] MEDS: AMPICILLIN/SULB 3 GM/NS (PMX) 100 ML IVPB ×5 (01:06→23:51)
[2017-11-02] MEDS: HYDROCODONE/APAP (5/325) TAB PO (03:38)
[2017-11-02] MEDS: PANTOPRAZOLE 40 MG INJ IV ×2 (05:58→17:26)
[2017-11-02 06:12] LABS: ADD MAN DIFF? NO
[2017-11-02 06:17] LABS: BASOPHIL # 0.1 10^3/ul (0.0-0.1); BASOPHILS % 1.7 % (0.0-2.0); EOSINOPHILS # 0.5 10^3/ul (0.0-0.5); HEMOGLOBIN 8.3 g/dl (14.0-18.0); LYMPHOCYTES # 1.5 10^3/ul (0.8-2.9); MEAN CORPUSCULAR HEMOGLOBIN 24.8 pg (29.0-33.0); MEAN CORPUSCULAR HGB CONC 30.7 g/dl (32.0-37.0); MEAN CORPUSCULAR VOLUME 80.6 fl (82.0-101.0); MEAN PLATELET VOLUME 8.5 fl (7.4-10.4); MONOCYTE # 0.7 10^3/ul (0.3-0.9); MONOCYTES % 9.7 % (0.0-11.0); NEUTROPHIL # 4.5 10^3/ul (1.6-7.5); NEUTROPHILS % 60.4 % (39.0-77.0); PLATELET COUNT 434 10^3/UL (140-415); RED BLOOD COUNT 3.35 10^6/ul (4.70-6.10); RED CELL DISTRIBUTION WIDTH 17.9 % (11.5-14.5)
[2017-11-02 06:17] LABS: WHITE BLOOD COUNT 7.5 10^3/ul (4.8-10.8)
[2017-11-02] MEDS: SUCRALFATE (100 MG/ML) 10ML CUP PO ×4 (08:48→20:05)
[2017-11-02] MEDS: FERROUS SULFATE (EC) 325 MG TAB PO ×3 (08:49→20:05)
[2017-11-02] MEDS: COLISTIMETHATE 150 MG in SOD CHLORIDE 0.9% 100 ML IVPB ×2 (11:27→20:27)
[2017-11-02] MEDS: MAGNESIUM HYDROXIDE 30ML CUP PO (20:05)
[2017-11-02] MEDS: LORAZEPAM 0.5 MG TAB PO (20:27)
[2017-11-02] MEDS: morphine LIQ (10 MG/5 ML) CUP PO (21:52)
[2017-11-03] MEDS: AMPICILLIN/SULB 3 GM/NS (PMX) 100 ML IVPB ×4 (06:04→23:15)
[2017-11-03] MEDS: morphine LIQ (10 MG/5 ML) CUP PO (06:06)
[2017-11-03] MEDS: PANTOPRAZOLE 40 MG INJ IV ×2 (06:06→17:39)
[2017-11-03] MEDS: COLISTIMETHATE 150 MG in SOD CHLORIDE 0.9% 100 ML IVPB ×2 (08:33→20:41)
[2017-11-03] MEDS: FERROUS SULFATE (EC) 325 MG TAB PO ×3 (08:33→20:41)
[2017-11-03] MEDS: SUCRALFATE (100 MG/ML) 10ML CUP PO ×4 (08:33→20:42)
[2017-11-03] MEDS: HYDROCODONE/APAP (5/325) TAB PO ×4 (08:34→21:26)
[2017-11-03] MEDS: LORAZEPAM 0.5 MG TAB PO ×2 (12:50→23:14)
[2017-11-03 14:27] LABS: BLOOD UREA NITROGEN 14 mg/dl (7-20)
[2017-11-03 14:27] LABS: CREATININE 1.02 mg/dl (0.61-1.24)
[2017-11-04] MEDS: PANTOPRAZOLE 40 MG INJ IV ×2 (06:02→18:23)
[2017-11-04] MEDS: AMPICILLIN/SULB 3 GM/NS (PMX) 100 ML IVPB ×4 (06:02→23:50)
[2017-11-04] MEDS: MAGNESIUM HYDROXIDE 30ML CUP PO (08:30)
[2017-11-04] MEDS: FERROUS SULFATE (EC) 325 MG TAB PO ×3 (08:30→20:31)
[2017-11-04] MEDS: SUCRALFATE (100 MG/ML) 10ML CUP PO ×4 (08:30→20:31)
[2017-11-04] MEDS: ACETAMINOPHEN 325 MG TAB PO ×2 (08:38→22:25)
[2017-11-04] MEDS: COLISTIMETHATE 150 MG in SOD CHLORIDE 0.9% 100 ML IVPB ×2 (08:47→20:32)
[2017-11-04] MEDS: SENNA TAB PO (20:31)
[2017-11-04] MEDS: HYDROCODONE/APAP (5/325) TAB PO (20:36)
[2017-11-04] MEDS: BISACODYL (EC) 5 MG TAB PO (20:36)
[2017-11-04] MEDS: LORAZEPAM 0.5 MG TAB PO (23:50)
[2017-11-05] MEDS: AMPICILLIN/SULB 3 GM/NS (PMX) 100 ML IVPB ×2 (05:50→12:00)
[2017-11-05] MEDS: HYDROCODONE/APAP (5/325) TAB PO ×2 (05:50→11:02)
[2017-11-05] MEDS: PANTOPRAZOLE 40 MG INJ IV ×2 (05:50→18:25)
[2017-11-05 06:38] LABS: ADD MAN DIFF? NO
[2017-11-05 06:41] LABS: BASOPHIL # 0.1 10^3/ul (0.0-0.1); EOSINOPHILS # 0.5 10^3/ul (0.0-0.5); EOSINOPHILS % 7.7 % (0.0-7.0); HEMATOCRIT 31.2 % (42.0-52.0); HEMOGLOBIN 9.3 g/dl (14.0-18.0); LYMPHOCYTES # 1.6 10^3/ul (0.8-2.9); LYMPHOCYTES % 23.5 % (15.0-51.0); MEAN CORPUSCULAR HEMOGLOBIN 24.3 pg (29.0-33.0); MEAN CORPUSCULAR HGB CONC 29.8 g/dl (32.0-37.0); MEAN CORPUSCULAR VOLUME 81.5 fl (82.0-101.0); MEAN PLATELET VOLUME 9.1 fl (7.4-10.4); MONOCYTE # 0.9 10^3/ul (0.3-0.9); MONOCYTES % 13.1 % (0.0-11.0); NEUTROPHIL # 3.6 10^3/ul (1.6-7.5); NEUTROPHILS % 53.1 % (39.0-77.0); PLATELET COUNT 454 10^3/UL (140-415); RED BLOOD COUNT 3.83 10^6/ul (4.70-6.10)
[2017-11-05 06:41] LABS: WHITE BLOOD COUNT 6.9 10^3/ul (4.8-10.8)
[2017-11-05 07:29] LABS: ANION GAP 14 (8-16); BLOOD UREA NITROGEN 16 mg/dl (7-20); CALCIUM 10.2 mg/dl (8.4-10.2); CARBON DIOXIDE 27 mmol/L (21-31); CHLORIDE 105 mmol/L (97-110); CREATININE 1.01 mg/dl (0.61-1.24); GLUCOSE 102 mg/dl (70-220); SODIUM 142 mmol/L (135-144)
[2017-11-05] MEDS: SENNA TAB PO (08:08)
[2017-11-05] MEDS: FERROUS SULFATE (EC) 325 MG TAB PO (08:08)
[2017-11-05] MEDS: MAGNESIUM HYDROXIDE 30ML CUP PO (08:08)
[2017-11-05] MEDS: DOCUSATE SODIUM 100 MG CAP PO (11:02)
[2017-11-05] MEDS: COLISTIMETHATE 150 MG in SOD CHLORIDE 0.9% 100 ML IVPB (11:02)
[2017-11-05] MEDS: SUCRALFATE (100 MG/ML) 10ML CUP PO ×3 (13:00→18:25)
== END 2017-11-05 18:50 | DRG 871 ==
LOC: MS2 11-02 00:10 → E/R 20:07 → TEL 10-26 00:22
PROC: 30233N1 Transfusion of Nonautologous Red Blood Cells into Peripheral Vein, Percutaneous Approach (ICD-10-PCS; principal; 2017-10-26)
DX: A41.9 Sepsis, unspecified organism (principal); K85.90 Acute pancreatitis without necrosis or infection, unspecified; K65.1 Peritoneal abscess; K26.4 Chronic or unspecified duodenal ulcer with hemorrhage; K29.70 Gastritis, unspecified, without bleeding; F03.90 Unspecified dementia, unspecified severity, without behavioral disturbance, psychotic disturbance, mood disturbance, and anxiety; Z90.49 Acquired absence of other specified parts of digestive tract; B96.89 Other specified bacterial agents as the cause of diseases classified elsewhere; D50.0 Iron deficiency anemia secondary to blood loss (chronic); Z16.24 Resistance to multiple antibiotics; K20.9 Esophagitis, unspecified; K59.00 Constipation, unspecified
CPT/HCPCS: 36415; 36430; 71045; 74176; 80048; 80053; 81001; 82565; 82728; 83540; 83605; 83690; 83735; 84100; 84484; 84520; 85025; 85610; 85730; 86850; 86900; 86901; 86920; 87040; 87070; 87081; 87086; 93005; 96374; 96375; 99285-25

== ENCOUNTER 2017-11-19 14:20 | Emergency (ER) | payer OTHER | END 2017-11-19 18:24 | disposition left against medical advice (07) | LOC: E/R 14:20 | DX: Z53.21 Procedure and treatment not carried out due to patient leaving prior to being seen by health care provider (principal) ==

== ENCOUNTER 2017-11-25 16:19 | Emergency (ER) | payer SELFPAY, OTHER | END 2017-11-25 16:24 | disposition left against medical advice (07) | LOC: E/R 16:19 | DX: Z53.21 Procedure and treatment not carried out due to patient leaving prior to being seen by health care provider (principal) ==

== ENCOUNTER 2018-04-01 07:31 | Emergency (ER) | payer SELFPAY | END 2018-04-01 09:19 | disposition left against medical advice (07) | LOC: E/R 09:19 | DX: Z53.21 Procedure and treatment not carried out due to patient leaving prior to being seen by health care provider (principal) ==

== ENCOUNTER 2018-04-08 08:06 | Emergency (ER) | payer OTHER ==
[2018-04-08 09:03] LABS: ADD MAN DIFF? NO
[2018-04-08 09:05] LABS: WHITE BLOOD COUNT 10.6 10^3/ul (4.8-10.8)
[2018-04-08 09:05] LABS: BASOPHIL # 0.1 10^3/ul (0.0-0.1); BASOPHILS % 0.6 % (0.0-2.0); EOSINOPHILS # 0.2 10^3/ul (0.0-0.5); EOSINOPHILS % 1.9 % (0.0-7.0); HEMOGLOBIN 10.9 g/dl (14.0-18.0); LYMPHOCYTES % 9.5 % (15.0-51.0); MEAN CORPUSCULAR HEMOGLOBIN 24.5 pg (29.0-33.0); MEAN CORPUSCULAR HGB CONC 30.3 g/dl (32.0-37.0); MEAN CORPUSCULAR VOLUME 81.1 fl (82.0-101.0); MEAN PLATELET VOLUME 8.7 fl (7.4-10.4); MONOCYTES % 9.5 % (0.0-11.0); NEUTROPHIL # 8.3 10^3/ul (1.6-7.5); NEUTROPHILS % 77.9 % (39.0-77.0); PLATELET COUNT 322 10^3/UL (140-415); RED BLOOD COUNT 4.44 10^6/ul (4.70-6.10); RED CELL DISTRIBUTION WIDTH 18.4 % (11.5-14.5)
[2018-04-08 09:06] LABS: ADD UMIC YES; UR ASCORBIC ACID NEGATIVE (NEGATIVE); UR BILIRUBIN (Dip) NEGATIVE (NEGATIVE); UR BLOOD (Dip) 1+ mg/dL (NEGATIVE); UR CLARITY CLEAR (CLEAR); UR COLOR STRAW (YELLOW); UR GLUCOSE (Dip) NEGATIVE (NEGATIVE); UR KETONES (Dip) NEGATIVE (NEGATIVE); UR LEUKOCYTE ESTERASE (Dip) NEGATIVE Leu/ul (NEGATIVE); UR NITRITE (Dip) NEGATIVE (NEGATIVE); UR RBC 1 /HPF (0-5); UR SPECIFIC GRAVITY (Dip) 1.018 (1.003-1.030); UR TOTAL PROTEIN (Dip) NEGATIVE (NEGATIVE); UR UROBILINOGEN (Dip) NEGATIVE (NEGATIVE); UR WBC 4 /HPF (0-5)
[2018-04-08] MEDS: ONDANSETRON 4 MG INJ IV (09:13)
[2018-04-08] MEDS: morphine 2 MG INJ IV (09:13)
[2018-04-08 09:25] LABS: ALANINE AMINOTRANSFERASE 8 IU/L (13-69); ALBUMIN 3.8 g/dl (3.3-4.9); ALBUMIN/GLOBULIN RATIO 1.11; ALKALINE PHOSPHATASE 66 IU/L (42-121); ANION GAP 11 (5-13); ASPARTATE AMINO TRANSFERASE 17 IU/L (15-46); BILIRUBIN,INDIRECT 0.2 mg/dl (0-1.1); BILIRUBIN,TOTAL 0.2 mg/dl (0.2-1.3); BLOOD UREA NITROGEN 17 mg/dl (7-20); CALCIUM 9.1 mg/dl (8.4-10.2); CARBON DIOXIDE 25 mmol/L (21-31); CHLORIDE 106 mmol/L (97-110); CREATININE 1.04 mg/dl (0.61-1.24); GLUCOSE 101 mg/dl (70-220); LIPASE 373 U/L (23-300); POTASSIUM 4.4 mmol/L (3.5-5.1); SODIUM 142 mmol/L (135-144); TOTAL PROTEIN 7.2 g/dl (6.1-8.1)
== END 2018-04-08 10:50 | disposition home or self-care (01) ==
LOC: E/R 08:06
DX: K26.9 Duodenal ulcer, unspecified as acute or chronic, without hemorrhage or perforation (principal)
CPT/HCPCS: 36415; 74176; 80053; 81001; 83690; 85025; 96374; 96375; 99285-25

== ENCOUNTER 2018-04-21 14:42 | Emergency (ER) | payer OTHER ==
[2018-04-21] MEDS: HYDROCODONE/APAP (5/325) TAB PO (15:10)
[2018-04-21] MEDS: ONDANSETRON (ODT) 4 MG TAB ODT (15:10)
== END 2018-04-21 15:38 | disposition home or self-care (01) ==
LOC: E/R 14:42
DX: R10.84 Generalized abdominal pain (principal); F17.210 Nicotine dependence, cigarettes, uncomplicated
CPT/HCPCS: 99283; Z7502

== ENCOUNTER 2018-04-21 18:37 | Emergency (ER) | payer OTHER | END 2018-04-21 18:50 | disposition home or self-care (01) | LOC: E/R 18:37 | DX: R10.84 Generalized abdominal pain (principal) | CPT/HCPCS: 99283; Z7502 ==

== ENCOUNTER 2018-04-27 11:41 | Emergency (ER) | payer OTHER ==
[2018-04-27] MEDS: SOD CHLORIDE 0.9% 500 ML IV (12:38)
[2018-04-27] MEDS: KETOROLAC 15 MG INJ IV (12:39)
[2018-04-27] MEDS: DIPHTH/TET/ACEL PERTUSS (ADULT) 0.5 ML VIAL IM* (12:39)
[2018-04-27 12:58] LABS: ADD MAN DIFF? NO
[2018-04-27 13:08] LABS: WHITE BLOOD COUNT 7.3 10^3/ul (4.8-10.8)
[2018-04-27 13:08] LABS: BASOPHIL # 0.1 10^3/ul (0.0-0.1); BASOPHILS % 0.7 % (0.0-2.0); EOSINOPHILS # 0.1 10^3/ul (0.0-0.5); EOSINOPHILS % 1.4 % (0.0-7.0); HEMATOCRIT 34.6 % (42.0-52.0); HEMOGLOBIN 10.5 g/dl (14.0-18.0); LYMPHOCYTES # 0.9 10^3/ul (0.8-2.9); LYMPHOCYTES % 11.9 % (15.0-51.0); MEAN CORPUSCULAR HEMOGLOBIN 24.8 pg (29.0-33.0); MEAN CORPUSCULAR HGB CONC 30.3 g/dl (32.0-37.0); MEAN CORPUSCULAR VOLUME 81.8 fl (82.0-101.0); MEAN PLATELET VOLUME 8.9 fl (7.4-10.4); MONOCYTE # 0.8 10^3/ul (0.3-0.9); MONOCYTES % 11.2 % (0.0-11.0); NEUTROPHIL # 5.4 10^3/ul (1.6-7.5); NEUTROPHILS % 74.4 % (39.0-77.0); PLATELET COUNT 336 10^3/UL (140-415); RED BLOOD COUNT 4.23 10^6/ul (4.70-6.10); RED CELL DISTRIBUTION WIDTH 16.1 % (11.5-14.5)
[2018-04-27 13:26] LABS: ALANINE AMINOTRANSFERASE 13 IU/L (13-69); ALBUMIN 4.4 g/dl (3.3-4.9); ALBUMIN/GLOBULIN RATIO 1.22; ALKALINE PHOSPHATASE 66 IU/L (42-121); ANION GAP 12 (5-13); ASPARTATE AMINO TRANSFERASE 39 IU/L (15-46); BILIRUBIN,INDIRECT 0.5 mg/dl (0-1.1); BILIRUBIN,TOTAL 0.5 mg/dl (0.2-1.3); BLOOD UREA NITROGEN 19 mg/dl (7-20); CALCIUM 9.7 mg/dl (8.4-10.2); CARBON DIOXIDE 25 mmol/L (21-31); CHLORIDE 102 mmol/L (97-110); CREATININE 1.07 mg/dl (0.61-1.24); GLUCOSE 98 mg/dl (70-220); LIPASE 119 U/L (23-300); POTASSIUM 5.4 mmol/L (3.5-5.1); SODIUM 139 mmol/L (135-144)
[2018-04-27 13:31] LABS: INR 0.89; PROTIME 12.1 Sec (11.9-14.9); PT RATIO 0.9
[2018-04-27 13:32] LABS: PARTIAL THROMBOPLASTIN TIME 27.6 Sec (23.0-35.0)
[2018-04-27 13:37] LABS: TROPONIN-I 0.026 ng/ml (0.000-0.120)
== END 2018-04-27 13:25 | disposition left against medical advice (07) ==
LOC: E/R 11:41
DX: S43.402A Unspecified sprain of left shoulder joint, initial encounter (principal); S00.83XA Contusion of other part of head, initial encounter; R07.9 Chest pain, unspecified; W01.0XXA Fall on same level from slipping, tripping and stumbling without subsequent striking against object, initial encounter; Y92.9 Unspecified place or not applicable
CPT/HCPCS: 36415; 71045; 73030; 80053; 83690; 84484; 85025; 85610; 85730; 90471; 90715; 93005; 96361; 96374; 99285-25

== ENCOUNTER 2018-04-28 08:56 | Inpatient (IN) | payer OTHER ==
[2018-04-28 09:26] LABS: ADD MAN DIFF? NO
[2018-04-28 09:27] LABS: WHITE BLOOD COUNT 12.2 10^3/ul (4.8-10.8)
[2018-04-28 09:27] LABS: BASOPHIL # 0.1 10^3/ul (0.0-0.1); BASOPHILS % 0.7 % (0.0-2.0); EOSINOPHILS # 0.1 10^3/ul (0.0-0.5); EOSINOPHILS % 1.1 % (0.0-7.0); HEMATOCRIT 26.1 % (42.0-52.0); HEMOGLOBIN 7.8 g/dl (14.0-18.0); LYMPHOCYTES # 1.1 10^3/ul (0.8-2.9); LYMPHOCYTES % 9.1 % (15.0-51.0); MEAN CORPUSCULAR HEMOGLOBIN 24.8 pg (29.0-33.0); MEAN CORPUSCULAR HGB CONC 29.9 g/dl (32.0-37.0); MEAN CORPUSCULAR VOLUME 83.1 fl (82.0-101.0); MEAN PLATELET VOLUME 9.8 fl (7.4-10.4); MONOCYTE # 0.9 10^3/ul (0.3-0.9); MONOCYTES % 7.1 % (0.0-11.0); NEUTROPHIL # 9.9 10^3/ul (1.6-7.5); NEUTROPHILS % 81.4 % (39.0-77.0); PLATELET COUNT 352 10^3/UL (140-415); POSITIVE DIFF @See below; RED BLOOD COUNT 3.14 10^6/ul (4.70-6.10); RED CELL DISTRIBUTION WIDTH 15.9 % (11.5-14.5)
[2018-04-28 09:50] LABS: ALANINE AMINOTRANSFERASE 13 IU/L (13-69); ALBUMIN 3.6 g/dl (3.3-4.9); ALBUMIN/GLOBULIN RATIO 1.28; ALKALINE PHOSPHATASE 55 IU/L (42-121); ANION GAP 12 (5-13); ASPARTATE AMINO TRANSFERASE 24 IU/L (15-46); BILIRUBIN,INDIRECT 0.3 mg/dl (0-1.1); BILIRUBIN,TOTAL 0.3 mg/dl (0.2-1.3); BLOOD UREA NITROGEN 39 mg/dl (7-20); CARBON DIOXIDE 21 mmol/L (21-31); CHLORIDE 105 mmol/L (97-110); CREATININE 1.37 mg/dl (0.61-1.24); GLUCOSE 226 mg/dl (70-220); POTASSIUM 4.4 mmol/L (3.5-5.1); SODIUM 138 mmol/L (135-144); TOTAL PROTEIN 6.4 g/dl (6.1-8.1)
[2018-04-28] MEDS: SOD CHLORIDE 0.9% 1,000 ML IV ×2 (09:51→18:57)
[2018-04-28] MEDS: PANTOPRAZOLE 40 MG INJ IV (09:51)
[2018-04-28] MEDS: LIDOCAINE 1% (MPF) 5 ML VIAL SC ×2 (09:51→11:30)
[2018-04-28 10:01] LABS: INR 0.93; PROTIME 12.6 Sec (11.9-14.9); TROPONIN-I 0.036 ng/ml (0.000-0.120)
[2018-04-28] MEDS ORDERED: NACL 0.9% 3 ML SYG IV (11:00)
[2018-04-28] MEDS ORDERED: ONDANSETRON 4 MG INJ IV (11:00)
[2018-04-28] MEDS: PROPOFOL 20 ML (12:04)
[2018-04-28] MEDS ORDERED: morphine 4 MG/ML VIAL (12:53)
[2018-04-28] MEDS ORDERED: morphine 2 MG INJ IV (13:00)
[2018-04-28] MEDS ORDERED: FENTAnyl 50 MCG/ML VIAL IV ×3 (13:00)
[2018-04-28] MEDS ORDERED: morphine 10 MG INJ IV (13:00)
[2018-04-28] MEDS: morphine 2 MG INJ IV (13:04)
[2018-04-28 13:05] LABS: HEMOGLOBIN A1C 5.9 % (0-5.9)
[2018-04-28 13:24] LABS: ADD MAN DIFF? NO
[2018-04-28 13:26] LABS: ABNORMAL IP MESSAGE 1; EOSINOPHILS % 0.1 % (0.0-7.0); POSITIVE DIFF @See below
[2018-04-28 13:30] LABS: BASOPHILS % 0.4 % (0.0-2.0); LYMPHOCYTES % 10.3 % (15.0-51.0); MEAN CORPUSCULAR HEMOGLOBIN 25.9 pg (29.0-33.0); MEAN CORPUSCULAR HGB CONC 31.1 g/dl (32.0-37.0); MEAN CORPUSCULAR VOLUME 83.3 fl (82.0-101.0); MEAN PLATELET VOLUME 9.1 fl (7.4-10.4); MONOCYTE # 0.8 10^3/ul (0.3-0.9); MONOCYTES % 7.7 % (0.0-11.0); NEUTROPHIL # 7.9 10^3/ul (1.6-7.5); NEUTROPHILS % 80.6 % (39.0-77.0); PLATELET COUNT 297 10^3/UL (140-415); RED BLOOD COUNT 2.16 10^6/ul (4.70-6.10); RED CELL DISTRIBUTION WIDTH 15.9 % (11.5-14.5)
[2018-04-28 13:30] LABS: WHITE BLOOD COUNT 9.8 10^3/ul (4.8-10.8)
[2018-04-28 13:40] LABS: HEMOGLOBIN 5.6 g/dl (14.0-18.0)
[2018-04-28 13:46] LABS: INR 1.05; PROTIME 13.8 Sec (11.9-14.9); PT RATIO 1.1
[2018-04-28 13:47] LABS: ALANINE AMINOTRANSFERASE 21 IU/L (13-69); ALBUMIN 2.6 g/dl (3.3-4.9); ALBUMIN/GLOBULIN RATIO 1.13; ALKALINE PHOSPHATASE 42 IU/L (42-121); ANION GAP 6 (5-13); ASPARTATE AMINO TRANSFERASE 15 IU/L (15-46); BILIRUBIN,INDIRECT 0.2 mg/dl (0-1.1); BILIRUBIN,TOTAL 0.2 mg/dl (0.2-1.3); BLOOD UREA NITROGEN 37 mg/dl (7-20); CALCIUM 7.8 mg/dl (8.4-10.2); CARBON DIOXIDE 21 mmol/L (21-31); CHLORIDE 109 mmol/L (97-110); CREATININE 1.13 mg/dl (0.61-1.24); GLUCOSE 165 mg/dl (70-220); POTASSIUM 4.4 mmol/L (3.5-5.1); SODIUM 136 mmol/L (135-144); TOTAL PROTEIN 4.9 g/dl (6.1-8.1)
[2018-04-28] MEDS ORDERED: PANTOPRAZOLE IV 80 MG in SOD CHLORIDE 0.9% 100 ML IV (14:00)
[2018-04-28 14:10] LABS: ANISOCYTOSIS 2+ (0-0); GIANT THROMBO% (M) 1 % (0-0); HYPOCHROMASIA 1+ (0-0); LYMPHOCYTES #M 0.4 10^3/ul (0.8-2.9); LYMPHOCYTES % (M) 5 % (15-51); MICROCYTOSIS 2+ (0-0); MONOCYTE #M 0.2 10^3/ul (0.3-0.9); MONOCYTES % (M) 3 % (0-11); PLASMAC%(M) 1 % (0); PLATELET ESTIMATE NORMAL; POLYCHROMASIA 2+ (0-0); SEGMENTED NEUTROPHILS (M) % 91 % (39-77); SMUDGE%M 3 % (0-0)
[2018-04-28 16:07] LABS: ABNORMAL IP MESSAGE 1; HEMATOCRIT 21.5 % (42.0-52.0); MEAN CORPUSCULAR HEMOGLOBIN 26.4 pg (29.0-33.0); MEAN CORPUSCULAR HGB CONC 31.2 g/dl (32.0-37.0); MEAN CORPUSCULAR VOLUME 84.6 fl (82.0-101.0); MEAN PLATELET VOLUME 9.2 fl (7.4-10.4); PLATELET COUNT 287 10^3/UL (140-415); POSITIVE DIFF @See below; RED BLOOD COUNT 2.54 10^6/ul (4.70-6.10); RED CELL DISTRIBUTION WIDTH 15.8 % (11.5-14.5)
[2018-04-28 16:07] LABS: WHITE BLOOD COUNT 11.3 10^3/ul (4.8-10.8)
[2018-04-28 16:15] LABS: AMPHETAMINE/METHAMPHETAMINE Negative (NEGATIVE); BARBITURATES Negative (NEGATIVE); BENZODIAZEPINES Negative (NEGATIVE); CANNABINOIDS Negative (NEGATIVE); COCAINE Negative (NEGATIVE); OPIATES Positive (NEGATIVE)
[2018-04-28 16:26] LABS: PARTIAL THROMBOPLASTIN TIME 20.6 Sec (23.0-35.0)
[2018-04-28 16:26] LABS: ANION GAP 7 (5-13); BLOOD UREA NITROGEN 39 mg/dl (7-20); CALCIUM 7.9 mg/dl (8.4-10.2); CARBON DIOXIDE 20 mmol/L (21-31); CHLORIDE 109 mmol/L (97-110); CHOL/HDL RATIO 4.2 RATIO; CHOLESTEROL 143 mg/dl (100-200); CREATININE 1.11 mg/dl (0.61-1.24); GLUCOSE 164 mg/dl (70-220); HDL CHOLESTEROL 34 mg/dl (31-75); LDL CHOLESTEROL,CALCULATED 83 mg/dl; POTASSIUM 4.8 mmol/L (3.5-5.1); SODIUM 136 mmol/L (135-144); TRIGLYCERIDES 129 mg/dl (0-149)
[2018-04-28 16:27] LABS: HEMOGLOBIN 6.7 g/dl (14.0-18.0)
[2018-04-28 16:28] LABS: ADD MAN DIFF? YES
[2018-04-28 16:37] LABS: TROPONIN-I 0.037 ng/ml (0.000-0.120)
[2018-04-28 16:58] LABS: ANISOCYTOSIS 2+ (0-0); BAND NEUTROPHILS #M 0.4 10^3/ul (0.0-0.6); BAND NEUTROPHILS % (M) 4 % (0-4); GIANT THROMBO% (M) 1 % (0-0); LYMPHOCYTES #M 0.6 10^3/ul (0.8-2.9); LYMPHOCYTES % (M) 6 % (15-51); MICROCYTOSIS 2+ (0-0); MONOCYTE #M 1.2 10^3/ul (0.3-0.9); MONOCYTES % (M) 11 % (0-11); PLATELET ESTIMATE NORMAL; POIKILOCYTOSIS 1+ (0-0); POLYCHROMASIA 2+ (0-0); SEGMENTED NEUTROPHILS (M) % 79 % (39-77); SMUDGE%M 1 % (0-0)
[2018-04-28] MEDS: PANTOPRAZOLE IV 80 MG in SOD CHLORIDE 0.9% 100 ML IV (17:01)
[2018-04-28] MEDS: OCTREOTIDE 50 MCG in SOD CHLORIDE 0.9% 50 ML IVPB (19:00)
[2018-04-28 20:18] LABS: HEMOGLOBIN 7.5 g/dl (14.0-18.0)
[2018-04-28 23:03] LABS: IMMEDIATE SPIN CROSSMATCH 1 7
[2018-04-28 23:15] LABS: HEMATOCRIT 19.8 % (42.0-52.0)
[2018-04-28 23:22] LABS: HEMOGLOBIN 6.4 g/dl (14.0-18.0)
[2018-04-29] MEDS: morphine SULFATE/PF (2 MG/2 ML) SYG IV (00:48)
[2018-04-29] MEDS: PANTOPRAZOLE IV 80 MG in SOD CHLORIDE 0.9% 100 ML IV ×5 (02:12→22:54)
[2018-04-29] MEDS: SOD CHLORIDE 0.9% 1,000 ML IV ×2 (04:10→22:54)
[2018-04-29 05:22] LABS: ADD MAN DIFF? NO
[2018-04-29] MEDS: LORAZEPAM 4 MG/ML VIAL IV ×3 (05:25→19:41)
[2018-04-29 05:37] LABS: BASOPHILS % 0.1 % (0.0-2.0); HEMATOCRIT 23.4 % (42.0-52.0); HEMOGLOBIN 7.8 g/dl (14.0-18.0); LYMPHOCYTES # 0.9 10^3/ul (0.8-2.9); LYMPHOCYTES % 6.7 % (15.0-51.0); MEAN CORPUSCULAR HEMOGLOBIN 29.1 pg (29.0-33.0); MEAN CORPUSCULAR HGB CONC 33.3 g/dl (32.0-37.0); MEAN CORPUSCULAR VOLUME 87.3 fl (82.0-101.0); MEAN PLATELET VOLUME 10.1 fl (7.4-10.4); MONOCYTE # 1.1 10^3/ul (0.3-0.9); MONOCYTES % 7.6 % (0.0-11.0); NEUTROPHIL # 11.8 10^3/ul (1.6-7.5); NEUTROPHILS % 85.2 % (39.0-77.0); PLATELET COUNT 163 10^3/UL (140-415); RED BLOOD COUNT 2.68 10^6/ul (4.70-6.10); RED CELL DISTRIBUTION WIDTH 15.7 % (11.5-14.5)
[2018-04-29 05:37] LABS: WHITE BLOOD COUNT 13.8 10^3/ul (4.8-10.8)
[2018-04-29 05:48] LABS: INR 1.09; PROTIME 14.2 Sec (11.9-14.9); PT RATIO 1.1
[2018-04-29 05:49] LABS: PARTIAL THROMBOPLASTIN TIME 27.9 Sec (23.0-35.0)
[2018-04-29 06:17] LABS: MAGNESIUM 1.8 mg/dl (1.7-2.5)
[2018-04-29 06:17] LABS: PHOSPHORUS 4.7 mg/dl (2.5-4.9)
[2018-04-29 06:58] LABS: ALANINE AMINOTRANSFERASE 29 IU/L (13-69); ALBUMIN 2.5 g/dl (3.3-4.9); ALBUMIN/GLOBULIN RATIO 1.19; ALKALINE PHOSPHATASE 37 IU/L (42-121); ANION GAP 11 (5-13); ASPARTATE AMINO TRANSFERASE 14 IU/L (15-46); BILIRUBIN,INDIRECT 0.7 mg/dl (0-1.1); BILIRUBIN,TOTAL 0.7 mg/dl (0.2-1.3); BLOOD UREA NITROGEN 43 mg/dl (7-20); CARBON DIOXIDE 20 mmol/L (21-31); CHLORIDE 111 mmol/L (97-110); CREATININE 1.23 mg/dl (0.61-1.24); GLUCOSE 99 mg/dl (70-220); SODIUM 142 mmol/L (135-144); TOTAL PROTEIN 4.6 g/dl (6.1-8.1)
[2018-04-29 09:59] LABS: HEMOGLOBIN 6.9 g/dl (14.0-18.0)
[2018-04-29] MEDS ORDERED: IODIXANOL LOCM 100 ML BTL (13:07)
[2018-04-29] MEDS ORDERED: MIDAZOLAM 1 MG/ML 2 ML INJ ×2 (13:07→13:30)
[2018-04-29] MEDS ORDERED: LIDOCAINE 1% (MDV) 20 ML INJ (13:07)
[2018-04-29] MEDS ORDERED: SOD CHLORIDE 0.9% 500 ML (13:07)
[2018-04-29] MEDS ORDERED: FENTAnyl 50 MCG/ML VIAL ×2 (13:39→15:07)
[2018-04-29] MEDS ORDERED: DIPHENHYDRAMINE 50 MG INJ (13:48)
[2018-04-29] MEDS ORDERED: GELATIN COMPRESSED 100CM SPONGE (15:48)
[2018-04-29 16:58] LABS: HEMATOCRIT 23.1 % (42.0-52.0); HEMOGLOBIN 7.9 g/dl (14.0-18.0)
[2018-04-30 01:11] LABS: HEMATOCRIT 22.5 % (42.0-52.0); HEMOGLOBIN 7.5 g/dl (14.0-18.0)
[2018-04-30 04:42] LABS: ADD MAN DIFF? NO
[2018-04-30 04:45] LABS: WHITE BLOOD COUNT 8.2 10^3/ul (4.8-10.8)
[2018-04-30 04:45] LABS: BASOPHIL # 0.1 10^3/ul (0.0-0.1); BASOPHILS % 0.6 % (0.0-2.0); EOSINOPHILS # 0.2 10^3/ul (0.0-0.5); EOSINOPHILS % 2.8 % (0.0-7.0); HEMATOCRIT 21.2 % (42.0-52.0); HEMOGLOBIN 7.1 g/dl (14.0-18.0); LYMPHOCYTES # 0.9 10^3/ul (0.8-2.9); LYMPHOCYTES % 10.9 % (15.0-51.0); MEAN CORPUSCULAR HEMOGLOBIN 28.3 pg (29.0-33.0); MEAN CORPUSCULAR HGB CONC 33.5 g/dl (32.0-37.0); MEAN CORPUSCULAR VOLUME 84.5 fl (82.0-101.0); MEAN PLATELET VOLUME 9.7 fl (7.4-10.4); MONOCYTE # 0.9 10^3/ul (0.3-0.9); NEUTROPHIL # 6.1 10^3/ul (1.6-7.5); PLATELET COUNT 110 10^3/UL (140-415); RED BLOOD COUNT 2.51 10^6/ul (4.70-6.10); RED CELL DISTRIBUTION WIDTH 15.3 % (11.5-14.5)
[2018-04-30 05:04] LABS: ALANINE AMINOTRANSFERASE 15 IU/L (13-69); ALBUMIN 2.3 g/dl (3.3-4.9); ALKALINE PHOSPHATASE 41 IU/L (42-121); ANION GAP 6 (5-13); ASPARTATE AMINO TRANSFERASE 13 IU/L (15-46); BILIRUBIN,INDIRECT 0.4 mg/dl (0-1.1); BILIRUBIN,TOTAL 0.4 mg/dl (0.2-1.3); BLOOD UREA NITROGEN 24 mg/dl (7-20); CALCIUM 8.2 mg/dl (8.4-10.2); CARBON DIOXIDE 24 mmol/L (21-31); CHLORIDE 112 mmol/L (97-110); CREATININE 0.93 mg/dl (0.61-1.24); GLUCOSE 86 mg/dl (70-220); POTASSIUM 3.9 mmol/L (3.5-5.1); SODIUM 142 mmol/L (135-144); TOTAL PROTEIN 4.6 g/dl (6.1-8.1)
[2018-04-30 05:06] LABS: PHOSPHORUS 2.1 mg/dl (2.5-4.9)
[2018-04-30 05:06] LABS: MAGNESIUM 1.9 mg/dl (1.7-2.5)
[2018-04-30 08:27] LABS: HEMATOCRIT 21.5 % (42.0-52.0); HEMOGLOBIN 7.2 g/dl (14.0-18.0)
[2018-04-30 10:41] LABS: IMMEDIATE SPIN CROSSMATCH 1
[2018-04-30] MEDS: PANTOPRAZOLE IV 80 MG in SOD CHLORIDE 0.9% 100 ML IV ×2 (11:21→20:40)
[2018-04-30] MEDS: SOD CHLORIDE 0.9% 1,000 ML IV ×2 (13:30→17:53)
[2018-04-30] MEDS: POTASSIUM PHOSPHATE 15 MM in SOD CHLORIDE 0.9% 250 ML IVPB (13:51)
[2018-04-30] MEDS: morphine SULFATE/PF (2 MG/2 ML) SYG IV ×4 (16:01→22:31)
[2018-04-30 16:30] LABS: HEMATOCRIT 23.6 % (42.0-52.0)
[2018-04-30 20:48] LABS: HEMATOCRIT 23.4 % (42.0-52.0); HEMOGLOBIN 7.9 g/dl (14.0-18.0)
[2018-04-30] MEDS ORDERED: ZOLPIDEM 5 MG TAB (23:39)
[2018-04-30] MEDS: ZOLPIDEM 5 MG TAB PO (23:40)
[2018-05-01] MEDS: morphine SULFATE/PF (2 MG/2 ML) SYG IV (04:29)
[2018-05-01 05:00] LABS: HEMATOCRIT 24.9 % (42.0-52.0); HEMOGLOBIN 8.1 g/dl (14.0-18.0)
[2018-05-01 05:30] LABS: MAGNESIUM 1.7 mg/dl (1.7-2.5)
[2018-05-01 05:30] LABS: PHOSPHORUS 3.2 mg/dl (2.5-4.9)
[2018-05-01 05:34] LABS: ALANINE AMINOTRANSFERASE 14 IU/L (13-69); ALBUMIN 2.4 g/dl (3.3-4.9); ALBUMIN/GLOBULIN RATIO 1.09; ALKALINE PHOSPHATASE 48 IU/L (42-121); ANION GAP 5 (5-13); ASPARTATE AMINO TRANSFERASE 10 IU/L (15-46); BILIRUBIN,INDIRECT 0.4 mg/dl (0-1.1); BILIRUBIN,TOTAL 0.4 mg/dl (0.2-1.3); BLOOD UREA NITROGEN 13 mg/dl (7-20); CALCIUM 8.4 mg/dl (8.4-10.2); CARBON DIOXIDE 25 mmol/L (21-31); CHLORIDE 107 mmol/L (97-110); CREATININE 0.78 mg/dl (0.61-1.24); GLUCOSE 88 mg/dl (70-220); SODIUM 137 mmol/L (135-144); TOTAL PROTEIN 4.6 g/dl (6.1-8.1)
[2018-05-01] MEDS: PANTOPRAZOLE IV 80 MG in SOD CHLORIDE 0.9% 100 ML IV ×2 (06:57→18:29)
[2018-05-01] MEDS ORDERED: morphine 2 MG INJ IV (08:30)
[2018-05-01] MEDS: SOD CHLORIDE 0.9% 1,000 ML IV (10:23)
[2018-05-01] MEDS ORDERED: LORAZEPAM 0.5 MG TAB PO (11:43)
[2018-05-01] MEDS: HYDROmorphONE 0.5 MG/0.5 ML SYG IV ×2 (11:54→21:51)
[2018-05-01 12:47] LABS: HEMATOCRIT 27.7 % (42.0-52.0); HEMOGLOBIN 9.4 g/dl (14.0-18.0)
[2018-05-01] MEDS: SUCRALFATE (100 MG/ML) 10ML CUP PO ×3 (13:40→20:50)
[2018-05-02] MEDS: SOD CHLORIDE 0.9% 1,000 ML IV ×3 (05:30→23:52)
[2018-05-02] MEDS: PANTOPRAZOLE IV 80 MG in SOD CHLORIDE 0.9% 100 ML IV (05:31)
[2018-05-02 05:53] LABS: ADD MAN DIFF? NO
[2018-05-02 05:59] LABS: WHITE BLOOD COUNT 10.4 10^3/ul (4.8-10.8)
[2018-05-02 05:59] LABS: BASOPHILS % 0.2 % (0.0-2.0); EOSINOPHILS # 0.1 10^3/ul (0.0-0.5); EOSINOPHILS % 1.1 % (0.0-7.0); HEMATOCRIT 26.7 % (42.0-52.0); HEMOGLOBIN 8.9 g/dl (14.0-18.0); LYMPHOCYTES # 0.7 10^3/ul (0.8-2.9); LYMPHOCYTES % 7.1 % (15.0-51.0); MEAN CORPUSCULAR HEMOGLOBIN 28.5 pg (29.0-33.0); MEAN CORPUSCULAR HGB CONC 33.3 g/dl (32.0-37.0); MEAN CORPUSCULAR VOLUME 85.6 fl (82.0-101.0); MEAN PLATELET VOLUME 9.8 fl (7.4-10.4); MONOCYTE # 1.1 10^3/ul (0.3-0.9); MONOCYTES % 10.1 % (0.0-11.0); NEUTROPHIL # 8.4 10^3/ul (1.6-7.5); NEUTROPHILS % 80.3 % (39.0-77.0); PLATELET COUNT 180 10^3/UL (140-415); RED BLOOD COUNT 3.12 10^6/ul (4.70-6.10); RED CELL DISTRIBUTION WIDTH 14.9 % (11.5-14.5)
[2018-05-02 06:15] LABS: PHOSPHORUS 3.6 mg/dl (2.5-4.9)
[2018-05-02 06:15] LABS: MAGNESIUM 1.9 mg/dl (1.7-2.5)
[2018-05-02 06:27] LABS: ALANINE AMINOTRANSFERASE 9 IU/L (13-69); ALBUMIN 3.1 g/dl (3.3-4.9); ALBUMIN/GLOBULIN RATIO 1.24; ALKALINE PHOSPHATASE 59 IU/L (42-121); ANION GAP 10 (5-13); ASPARTATE AMINO TRANSFERASE 10 IU/L (15-46); BILIRUBIN,INDIRECT 0.5 mg/dl (0-1.1); BILIRUBIN,TOTAL 0.5 mg/dl (0.2-1.3); BLOOD UREA NITROGEN 11 mg/dl (7-20); CALCIUM 8.8 mg/dl (8.4-10.2); CARBON DIOXIDE 27 mmol/L (21-31); CHLORIDE 101 mmol/L (97-110); CREATININE 0.82 mg/dl (0.61-1.24); GLUCOSE 108 mg/dl (70-220); POTASSIUM 3.8 mmol/L (3.5-5.1); SODIUM 138 mmol/L (135-144); TOTAL PROTEIN 5.6 g/dl (6.1-8.1)
[2018-05-02] MEDS: SUCRALFATE (100 MG/ML) 10ML CUP PO ×4 (08:04→21:32)
[2018-05-02] MEDS ORDERED: ONDANSETRON 4 MG INJ IV (16:00)
[2018-05-02] MEDS: ACETAMINOPHEN 325 MG TAB PO (16:32)
[2018-05-02 17:41] LABS: HOMOCYSTEINE - CARDIOVASCULAR 10.9 umol/L (<11.4)
[2018-05-02] MEDS: PANTOPRAZOLE 40 MG INJ IV (17:50)
[2018-05-02] MEDS: LORAZEPAM 0.5 MG TAB PO (17:51)
[2018-05-02] MEDS: HYDROmorphONE 0.5 MG/0.5 ML SYG IV (21:33)
[2018-05-03] MEDS: PANTOPRAZOLE 40 MG INJ IV ×2 (05:25→17:10)
[2018-05-03 06:01] LABS: ADD MAN DIFF? NO
[2018-05-03 06:04] LABS: BASOPHILS % 0.3 % (0.0-2.0); EOSINOPHILS # 0.2 10^3/ul (0.0-0.5); EOSINOPHILS % 1.8 % (0.0-7.0); HEMATOCRIT 26.8 % (42.0-52.0); HEMOGLOBIN 8.9 g/dl (14.0-18.0); LYMPHOCYTES # 0.8 10^3/ul (0.8-2.9); LYMPHOCYTES % 7.5 % (15.0-51.0); MEAN CORPUSCULAR HEMOGLOBIN 28.3 pg (29.0-33.0); MEAN CORPUSCULAR HGB CONC 33.2 g/dl (32.0-37.0); MEAN CORPUSCULAR VOLUME 85.4 fl (82.0-101.0); MEAN PLATELET VOLUME 9.7 fl (7.4-10.4); MONOCYTE # 1.3 10^3/ul (0.3-0.9); MONOCYTES % 11.6 % (0.0-11.0); NEUTROPHIL # 8.5 10^3/ul (1.6-7.5); NEUTROPHILS % 78.2 % (39.0-77.0); PLATELET COUNT 196 10^3/UL (140-415); RED BLOOD COUNT 3.14 10^6/ul (4.70-6.10)
[2018-05-03 06:04] LABS: WHITE BLOOD COUNT 10.8 10^3/ul (4.8-10.8)
[2018-05-03 06:36] LABS: ALANINE AMINOTRANSFERASE 12 IU/L (13-69); ALBUMIN/GLOBULIN RATIO 1.15; ALKALINE PHOSPHATASE 68 IU/L (42-121); ANION GAP 10 (5-13); ASPARTATE AMINO TRANSFERASE 14 IU/L (15-46); BILIRUBIN,INDIRECT 0.2 mg/dl (0-1.1); BILIRUBIN,TOTAL 0.2 mg/dl (0.2-1.3); BLOOD UREA NITROGEN 16 mg/dl (7-20); CALCIUM 8.8 mg/dl (8.4-10.2); CARBON DIOXIDE 27 mmol/L (21-31); CHLORIDE 102 mmol/L (97-110); CREATININE 0.85 mg/dl (0.61-1.24); GLUCOSE 105 mg/dl (70-220); POTASSIUM 3.7 mmol/L (3.5-5.1); SODIUM 139 mmol/L (135-144); TOTAL PROTEIN 5.6 g/dl (6.1-8.1)
[2018-05-03] MEDS: SUCRALFATE (100 MG/ML) 10ML CUP PO ×4 (08:45→20:48)
[2018-05-03] MEDS: LORAZEPAM 0.5 MG TAB PO ×2 (12:53→23:34)
[2018-05-03] MEDS: ACETAMINOPHEN 325 MG TAB PO (12:53)
[2018-05-03] MEDS: HYDROmorphONE 0.5 MG/0.5 ML SYG IV ×2 (20:48→23:09)
[2018-05-04] MEDS: HYDROmorphONE 0.5 MG/0.5 ML SYG IV ×2 (02:28→15:33)
[2018-05-04] MEDS: PANTOPRAZOLE 40 MG INJ IV (05:14)
[2018-05-04] MEDS: SUCRALFATE (100 MG/ML) 10ML CUP PO ×4 (08:30→20:48)
[2018-05-04] MEDS: ACETAMINOPHEN 325 MG TAB PO (09:55)
[2018-05-04] MEDS: PANTOPRAZOLE (EC) 40 MG TAB PO (17:06)
[2018-05-04] MEDS: LORAZEPAM 0.5 MG TAB PO (22:02)
[2018-05-05] MEDS: PANTOPRAZOLE (EC) 40 MG TAB PO ×2 (06:39→17:05)
[2018-05-05] MEDS: SUCRALFATE (100 MG/ML) 10ML CUP PO ×4 (09:00→20:03)
[2018-05-05] MEDS: LORAZEPAM 0.5 MG TAB PO (20:03)
[2018-05-05] MEDS: HYDROmorphONE 0.5 MG/0.5 ML SYG IV (20:15)
[2018-05-05] MEDS: ZOLPIDEM 5 MG TAB PO ×2 (21:50→23:01)
[2018-05-06] MEDS: PANTOPRAZOLE (EC) 40 MG TAB PO ×2 (05:33→17:38)
[2018-05-06] MEDS: SUCRALFATE (100 MG/ML) 10ML CUP PO ×4 (09:40→20:31)
[2018-05-06] MEDS: HYDROmorphONE 0.5 MG/0.5 ML SYG IV ×4 (14:23→21:29)
[2018-05-06] MEDS: DOCUSATE SODIUM 100 MG CAP PO (18:56)
[2018-05-06] MEDS: LORAZEPAM 0.5 MG TAB PO (22:21)
[2018-05-07] MEDS: HYDROmorphONE 0.5 MG/0.5 ML SYG IV (01:15)
[2018-05-07] MEDS: ACETAMINOPHEN 325 MG TAB PO (03:40)
[2018-05-07] MEDS: PANTOPRAZOLE (EC) 40 MG TAB PO (06:11)
[2018-05-07] MEDS: LACTULOSE 30ML CUP PO (09:19)
[2018-05-07] MEDS: DOCUSATE SODIUM 100 MG CAP PO (09:19)
[2018-05-07] MEDS: SUCRALFATE (100 MG/ML) 10ML CUP PO ×2 (09:19→13:04)
== END 2018-05-07 15:34 | disposition home or self-care (01) | DRG 377 ==
LOC: 6WM 05-01 11:28 → E/R 08:56 → 6WM 05-02 14:13 → PP2 05-05 18:39 → ICU 11:00
PROC: 0W3P8ZZ Control Bleeding in Gastrointestinal Tract, Via Natural or Artificial Opening Endoscopic (ICD-10-PCS; principal; 2018-04-28 12:00)
PROC: 04L23DZ Occlusion of Gastric Artery with Intraluminal Device, Percutaneous Approach (ICD-10-PCS; 2018-04-28 12:00)
PROC: 02HV33Z Insertion of Infusion Device into Superior Vena Cava, Percutaneous Approach (ICD-10-PCS; 2018-04-28 12:00)
PROC: B414YZZ Fluoroscopy of Superior Mesenteric Artery using Other Contrast (ICD-10-PCS; 2018-04-28 12:00)
PROC: 30233N1 Transfusion of Nonautologous Red Blood Cells into Peripheral Vein, Percutaneous Approach (ICD-10-PCS; 2018-04-28 12:00)
DX: K26.0 Acute duodenal ulcer with hemorrhage (principal); G92 Toxic encephalopathy; D62 Acute posthemorrhagic anemia; N17.9 Acute kidney failure, unspecified; K20.9 Esophagitis, unspecified; K26.4 Chronic or unspecified duodenal ulcer with hemorrhage; R00.0 Tachycardia, unspecified; M25.512 Pain in left shoulder; I95.9 Hypotension, unspecified; F03.90 Unspecified dementia, unspecified severity, without behavioral disturbance, psychotic disturbance, mood disturbance, and anxiety
CPT/HCPCS: 36246; 36415; 36430; 36569; 70450; 71045; 73030; 75726; 75774; 76937; 80048; 80053; 80061; 80076; 80307; 82962; 83036; 83090; 83735; 84100; 84443; 84484; 85014; 85018; 85025; 85610; 85730; 86850; 86900; 86901; 86920; 87081; 92610; 93005; 96374; 97110; 97116; 97161; 99291-25

== ENCOUNTER 2018-05-16 17:20 | Emergency (ER) | payer OTHER ==
[2018-05-16 19:01] LABS: URINE BLOOD (Dip) POC Trace-intact (NEGATIVE); URINE GLUCOSE (Dip) POC Negative (NEGATIVE); URINE KETONES (Dip) POC Trace (NEGATIVE); URINE LEUKOCYTE EST (Dip) POC Trace (NEGATIVE); URINE NITRITE (Dip) POC Positive (NEGATIVE); URINE TOTAL PROTEIN POC Negative (NEGATIVE)
[2018-05-16 19:01] LABS: URINE PH (Dip) POC 5.5 (5.0-8.5)
[2018-05-16 20:09] LABS: ADD MAN DIFF? NO
[2018-05-16 20:11] LABS: BASOPHIL # 0.1 10^3/ul (0.0-0.1); BASOPHILS % 0.9 % (0.0-2.0); EOSINOPHILS # 0.2 10^3/ul (0.0-0.5); EOSINOPHILS % 1.8 % (0.0-7.0); HEMATOCRIT 31.7 % (42.0-52.0); HEMOGLOBIN 9.7 g/dl (14.0-18.0); LYMPHOCYTES # 1.2 10^3/ul (0.8-2.9); LYMPHOCYTES % 13.3 % (15.0-51.0); MEAN CORPUSCULAR HEMOGLOBIN 26.9 pg (29.0-33.0); MEAN CORPUSCULAR HGB CONC 30.6 g/dl (32.0-37.0); MEAN CORPUSCULAR VOLUME 87.8 fl (82.0-101.0); MEAN PLATELET VOLUME 9.1 fl (7.4-10.4); MONOCYTE # 0.7 10^3/ul (0.3-0.9); MONOCYTES % 7.3 % (0.0-11.0); NEUTROPHIL # 6.8 10^3/ul (1.6-7.5); NEUTROPHILS % 76.3 % (39.0-77.0); POSITIVE DIFF @See below; RED BLOOD COUNT 3.61 10^6/ul (4.70-6.10); RED CELL DISTRIBUTION WIDTH 15.5 % (11.5-14.5)
[2018-05-16 20:11] LABS: WHITE BLOOD COUNT 8.9 10^3/ul (4.8-10.8)
[2018-05-16 20:12] LABS: PLATELET COUNT 417 10^3/UL (140-415)
[2018-05-16 20:29] LABS: ALANINE AMINOTRANSFERASE 8 IU/L (13-69); ALBUMIN 3.9 g/dl (3.3-4.9); ALBUMIN/GLOBULIN RATIO 1.08; ALKALINE PHOSPHATASE 66 IU/L (42-121); ANION GAP 12 (5-13); ASPARTATE AMINO TRANSFERASE 18 IU/L (15-46); BILIRUBIN,INDIRECT 0.1 mg/dl (0-1.1); BILIRUBIN,TOTAL 0.1 mg/dl (0.2-1.3); BLOOD UREA NITROGEN 16 mg/dl (7-20); CALCIUM 9.5 mg/dl (8.4-10.2); CARBON DIOXIDE 24 mmol/L (21-31); CHLORIDE 106 mmol/L (97-110); CREATININE 1.16 mg/dl (0.61-1.24); GLUCOSE 87 mg/dl (70-220); POTASSIUM 4.3 mmol/L (3.5-5.1); SODIUM 142 mmol/L (135-144); TOTAL PROTEIN 7.5 g/dl (6.1-8.1)
[2018-05-16 20:41] LABS: TROPONIN-I < 0.012 ng/ml (0.000-0.120)
[2018-05-16] MEDS ORDERED: ACETAMINOPHEN 325 MG TAB (20:52)
[2018-05-16] MEDS: ACETAMINOPHEN 325 MG TAB PO (21:00)
[2018-05-16] MEDS: CIPROFLOXACIN 500 MG TAB PO (21:03)
== END 2018-05-16 21:55 | disposition home or self-care (01) ==
LOC: E/R 17:20
DX: N39.0 Urinary tract infection, site not specified (principal); D64.9 Anemia, unspecified
CPT/HCPCS: 80053; 81003; 84484; 85025; 87086; 93005; 99284-25

== ENCOUNTER 2018-05-19 08:57 | Inpatient (IN) | payer OTHER ==
[2018-05-19 09:37] LABS: ADD MAN DIFF? NO
[2018-05-19 09:42] LABS: ABNORMAL IP MESSAGE 1; BASOPHILS % 0.7 % (0.0-2.0); EOSINOPHILS % 0.7 % (0.0-7.0); HEMATOCRIT 19.9 % (42.0-52.0); LYMPHOCYTES # 0.7 10^3/ul (0.8-2.9); LYMPHOCYTES % 11.5 % (15.0-51.0); MEAN CORPUSCULAR HEMOGLOBIN 26.6 pg (29.0-33.0); MEAN CORPUSCULAR HGB CONC 30.7 g/dl (32.0-37.0); MEAN CORPUSCULAR VOLUME 86.9 fl (82.0-101.0); MEAN PLATELET VOLUME 8.3 fl (7.4-10.4); MONOCYTE # 0.7 10^3/ul (0.3-0.9); MONOCYTES % 12.6 % (0.0-11.0); NEUTROPHIL # 4.4 10^3/ul (1.6-7.5); PLATELET COUNT 321 10^3/UL (140-415); POSITIVE DIFF @See below; RED BLOOD COUNT 2.29 10^6/ul (4.70-6.10); RED CELL DISTRIBUTION WIDTH 15.6 % (11.5-14.5)
[2018-05-19 09:42] LABS: WHITE BLOOD COUNT 5.9 10^3/ul (4.8-10.8)
[2018-05-19 09:49] LABS: HEMOGLOBIN 6.1 g/dl (14.0-18.0); PATH REVIEW? YES
[2018-05-19] MEDS: SOD CHLORIDE 0.9% 1,000 ML IV (09:53)
[2018-05-19 10:02] LABS: ALANINE AMINOTRANSFERASE < 6 IU/L (13-69); ALBUMIN 3.5 g/dl (3.3-4.9); ALKALINE PHOSPHATASE 59 IU/L (42-121); AMYLASE 107 U/L (11-123); ANION GAP 8 (5-13); ASPARTATE AMINO TRANSFERASE 13 IU/L (15-46); BILIRUBIN,INDIRECT 0.1 mg/dl (0-1.1); BILIRUBIN,TOTAL 0.1 mg/dl (0.2-1.3); BLOOD UREA NITROGEN 28 mg/dl (7-20); CARBON DIOXIDE 25 mmol/L (21-31); CHLORIDE 105 mmol/L (97-110); CREATININE 1.79 mg/dl (0.61-1.24); GLUCOSE 113 mg/dl (70-220); LIPASE 65 U/L (23-300); POTASSIUM 4.3 mmol/L (3.5-5.1); SODIUM 138 mmol/L (135-144); TOTAL PROTEIN 6.4 g/dl (6.1-8.1)
[2018-05-19 10:04] LABS: INR 0.95; PROTIME 12.8 Sec (11.9-14.9)
[2018-05-19 10:05] LABS: PARTIAL THROMBOPLASTIN TIME 27.2 Sec (23.0-35.0)
[2018-05-19 10:12] LABS: TROPONIN-I < 0.012 ng/ml (0.000-0.120)
[2018-05-19] MEDS: FAMOTIDINE 20 MG INJ IV (10:20)
[2018-05-19 10:24] LABS: ANISOCYTOSIS 1+ (0-0); BAND NEUTROPHILS #M 0.1 10^3/ul (0.0-0.6); BAND NEUTROPHILS % (M) 2 % (0-4); GIANT THROMBO% (M) 1 % (0-0); LYMPHOCYTES #M 0.4 10^3/ul (0.8-2.9); LYMPHOCYTES % (M) 7 % (15-51); MONOCYTE #M 0.1 10^3/ul (0.3-0.9); MONOCYTES % (M) 3 % (0-11); PLATELET ESTIMATE NORMAL; POIKILOCYTOSIS 1+ (0-0); POLYCHROMASIA 3+ (0-0); RBC MORPHOLOGY COMMENT @See below; SEG NEUT #M 5.2 10^3/ul (1.6-7.5); SEGMENTED NEUTROPHILS (M) % 88 % (39-77); WBC MORPHOLOGY COMMENT @See below
[2018-05-19] MEDS: PANTOPRAZOLE IV 80 MG in SOD CHLORIDE 0.9% 100 ML IVPB (10:50)
[2018-05-19] MEDS: PANTOPRAZOLE IV 80 MG in SOD CHLORIDE 0.9% 100 ML IV ×2 (10:50→16:26)
[2018-05-19] MEDS ORDERED: ACETAMINOPHEN 325 MG TAB PO (11:30)
[2018-05-19] MEDS ORDERED: ONDANSETRON 4 MG INJ IV ×2 (11:30→15:00)
[2018-05-19 12:19] LABS: LACTATE DEHYDROGENASE 399 IU/L (313-618)
[2018-05-19 12:32] LABS: IRON 26 ug/dl (35-150)
[2018-05-19 12:41] LABS: % IRON SATURATION 7 % SAT (22-52); TOTAL IRON BINDING CAPACITY 398 ug/dl (241-421)
[2018-05-19 12:55] LABS: FERRITIN 12.7 ng/ml (11.1-264.0)
[2018-05-19] MEDS ORDERED: morphine 4 MG/ML VIAL IV (15:00)
[2018-05-19] MEDS ORDERED: NACL 0.9% 3 ML SYG IV (15:00)
[2018-05-19] MEDS: D5W-0.45 NACL + KCL 20 MEQ 1,000 ML IV (15:24)
[2018-05-19] MEDS: SUCRALFATE (100 MG/ML) 10ML CUP PO ×2 (16:26→20:00)
[2018-05-19] MEDS: ACETAMINOPHEN 325 MG TAB PO (20:01)
[2018-05-20] MEDS: D5W-0.45 NACL + KCL 20 MEQ 1,000 ML IV ×3 (00:59→19:10)
[2018-05-20] MEDS: PANTOPRAZOLE IV 80 MG in SOD CHLORIDE 0.9% 100 ML IV ×3 (01:00→20:30)
[2018-05-20 01:02] LABS: HEMATOCRIT 22.5 % (42.0-52.0); HEMOGLOBIN 7.1 g/dl (14.0-18.0)
[2018-05-20 06:48] LABS: ADD MAN DIFF? NO
[2018-05-20 06:51] LABS: WHITE BLOOD COUNT 5.7 10^3/ul (4.8-10.8)
[2018-05-20 06:51] LABS: BASOPHIL # 0.1 10^3/ul (0.0-0.1); BASOPHILS % 0.9 % (0.0-2.0); EOSINOPHILS # 0.1 10^3/ul (0.0-0.5); EOSINOPHILS % 2.1 % (0.0-7.0); HEMATOCRIT 23.1 % (42.0-52.0); HEMOGLOBIN 7.4 g/dl (14.0-18.0); LYMPHOCYTES % 16.8 % (15.0-51.0); MEAN CORPUSCULAR HEMOGLOBIN 27.5 pg (29.0-33.0); MEAN CORPUSCULAR VOLUME 85.9 fl (82.0-101.0); MEAN PLATELET VOLUME 9.1 fl (7.4-10.4); MONOCYTE # 0.6 10^3/ul (0.3-0.9); MONOCYTES % 10.8 % (0.0-11.0); NEUTROPHIL # 3.9 10^3/ul (1.6-7.5); NEUTROPHILS % 68.9 % (39.0-77.0); PLATELET COUNT 300 10^3/UL (140-415); RED BLOOD COUNT 2.69 10^6/ul (4.70-6.10)
[2018-05-20 07:23] LABS: ANION GAP 7 (5-13); BLOOD UREA NITROGEN 32 mg/dl (7-20); CALCIUM 8.9 mg/dl (8.4-10.2); CARBON DIOXIDE 26 mmol/L (21-31); CHLORIDE 106 mmol/L (97-110); CREATININE 1.87 mg/dl (0.61-1.24); GLUCOSE 101 mg/dl (70-220); MAGNESIUM 2.3 mg/dl (1.7-2.5); PHOSPHORUS 4.7 mg/dl (2.5-4.9); POTASSIUM 4.2 mmol/L (3.5-5.1); SODIUM 139 mmol/L (135-144)
[2018-05-20] MEDS: SUCRALFATE (100 MG/ML) 10ML CUP PO ×4 (07:57→20:24)
[2018-05-20 10:08] LABS: IMMEDIATE SPIN CROSSMATCH 1 6
[2018-05-20 13:47] LABS: TRANSFERRIN 296 mg/dL (188-341)
[2018-05-20 14:05] LABS: HEMATOCRIT 28.2 % (42.0-52.0)
[2018-05-20] MEDS ORDERED: ONDANSETRON 4 MG INJ IV (15:30)
[2018-05-20] MEDS ORDERED: FENTAnyl 50 MCG/ML VIAL IV (15:30)
[2018-05-20] MEDS ORDERED: EPHEDrine SULFATE 50 MG/5 ML SYG IV (15:30)
[2018-05-20] MEDS ORDERED: LABETALOL HCL 20MG INJ IV (15:30)
[2018-05-20] MEDS: LIDOCAINE 2% (SDV) 5 ML INJ (15:36)
[2018-05-20] MEDS: PROPOFOL 40 ML (15:36)
[2018-05-20] MEDS: EPINEPHrine 0.1 MG/ML SYG (16:23)
[2018-05-21] MEDS: D5W-0.45 NACL + KCL 20 MEQ 1,000 ML IV ×2 (05:00→15:00)
[2018-05-21] MEDS: PANTOPRAZOLE IV 80 MG in SOD CHLORIDE 0.9% 100 ML IV ×2 (05:04→16:42)
[2018-05-21] MEDS: SUCRALFATE (100 MG/ML) 10ML CUP PO ×4 (08:39→21:14)
[2018-05-21 09:06] LABS: ADD MAN DIFF? NO
[2018-05-21 09:08] LABS: BASOPHIL # 0.1 10^3/ul (0.0-0.1); EOSINOPHILS # 0.2 10^3/ul (0.0-0.5); EOSINOPHILS % 2.9 % (0.0-7.0); HEMATOCRIT 24.7 % (42.0-52.0); HEMOGLOBIN 7.8 g/dl (14.0-18.0); LYMPHOCYTES % 19.5 % (15.0-51.0); MEAN CORPUSCULAR HEMOGLOBIN 27.5 pg (29.0-33.0); MEAN CORPUSCULAR HGB CONC 31.6 g/dl (32.0-37.0); MEAN PLATELET VOLUME 9.4 fl (7.4-10.4); MONOCYTE # 0.5 10^3/ul (0.3-0.9); MONOCYTES % 9.7 % (0.0-11.0); NEUTROPHIL # 3.4 10^3/ul (1.6-7.5); NEUTROPHILS % 66.1 % (39.0-77.0); PLATELET COUNT 266 10^3/UL (140-415); RED BLOOD COUNT 2.84 10^6/ul (4.70-6.10); RED CELL DISTRIBUTION WIDTH 15.8 % (11.5-14.5)
[2018-05-21 09:08] LABS: WHITE BLOOD COUNT 5.1 10^3/ul (4.8-10.8)
[2018-05-21 09:34] LABS: ANION GAP 6 (5-13); BLOOD UREA NITROGEN 35 mg/dl (7-20); CALCIUM 8.9 mg/dl (8.4-10.2); CARBON DIOXIDE 24 mmol/L (21-31); CHLORIDE 108 mmol/L (97-110); CREATININE 1.51 mg/dl (0.61-1.24); GLUCOSE 89 mg/dl (70-220); POTASSIUM 4.2 mmol/L (3.5-5.1); SODIUM 138 mmol/L (135-144)
[2018-05-21] MEDS ORDERED: morphine SULFATE/PF (2 MG/2 ML) SYG IV (14:36)
[2018-05-21] MEDS: morphine 4 MG/ML VIAL IV (15:54)
[2018-05-21] MEDS: ZOLPIDEM 5 MG TAB PO (21:13)
[2018-05-21] MEDS ORDERED: ZOLPIDEM 5 MG TAB PO (21:30)
[2018-05-22] MEDS: D5W-0.45 NACL + KCL 20 MEQ 1,000 ML IV ×3 (01:00→18:41)
[2018-05-22] MEDS: PANTOPRAZOLE IV 80 MG in SOD CHLORIDE 0.9% 100 ML IV ×2 (02:46→13:03)
[2018-05-22 07:21] LABS: ADD MAN DIFF? NO
[2018-05-22 07:26] LABS: WHITE BLOOD COUNT 5.5 10^3/ul (4.8-10.8)
[2018-05-22 07:26] LABS: BASOPHIL # 0.1 10^3/ul (0.0-0.1); BASOPHILS % 0.9 % (0.0-2.0); EOSINOPHILS # 0.3 10^3/ul (0.0-0.5); EOSINOPHILS % 4.7 % (0.0-7.0); HEMOGLOBIN 7.9 g/dl (14.0-18.0); LYMPHOCYTES % 17.6 % (15.0-51.0); MEAN CORPUSCULAR HEMOGLOBIN 27.4 pg (29.0-33.0); MEAN CORPUSCULAR HGB CONC 31.6 g/dl (32.0-37.0); MEAN CORPUSCULAR VOLUME 86.8 fl (82.0-101.0); MEAN PLATELET VOLUME 9.1 fl (7.4-10.4); MONOCYTE # 0.7 10^3/ul (0.3-0.9); MONOCYTES % 12.9 % (0.0-11.0); NEUTROPHIL # 3.5 10^3/ul (1.6-7.5); PLATELET COUNT 269 10^3/UL (140-415); RED BLOOD COUNT 2.88 10^6/ul (4.70-6.10); RED CELL DISTRIBUTION WIDTH 15.7 % (11.5-14.5)
[2018-05-22 08:00] LABS: ANION GAP 8 (5-13); BLOOD UREA NITROGEN 26 mg/dl (7-20); CALCIUM 8.7 mg/dl (8.4-10.2); CARBON DIOXIDE 25 mmol/L (21-31); CHLORIDE 104 mmol/L (97-110); CREATININE 1.63 mg/dl (0.61-1.24); GLUCOSE 92 mg/dl (70-220); POTASSIUM 4.1 mmol/L (3.5-5.1); SODIUM 137 mmol/L (135-144)
[2018-05-22] MEDS: SUCRALFATE (100 MG/ML) 10ML CUP PO ×4 (08:45→20:07)
[2018-05-22] MEDS: morphine 4 MG/ML VIAL IV (08:57)
[2018-05-22] MEDS: DOCUSATE SODIUM 100 MG CAP PO (08:57)
[2018-05-22] MEDS: PANTOPRAZOLE 40 MG INJ IV (17:20)
[2018-05-22] MEDS: HYDROCODONE/APAP (5/325) TAB PO (20:08)
[2018-05-22] MEDS: ZOLPIDEM 5 MG TAB PO (21:44)
[2018-05-23] MEDS: HYDROCODONE/APAP (5/325) TAB PO ×2 (03:18→22:05)
[2018-05-23] MEDS: D5W-0.45 NACL + KCL 20 MEQ 1,000 ML IV ×3 (04:20→17:00)
[2018-05-23] MEDS: DOCUSATE SODIUM 100 MG CAP PO (04:29)
[2018-05-23] MEDS: PANTOPRAZOLE 40 MG INJ IV (05:27)
[2018-05-23 07:23] LABS: ADD MAN DIFF? NO
[2018-05-23 07:33] LABS: BASOPHIL # 0.1 10^3/ul (0.0-0.1); EOSINOPHILS # 0.3 10^3/ul (0.0-0.5); EOSINOPHILS % 5.9 % (0.0-7.0); HEMATOCRIT 26.4 % (42.0-52.0); LYMPHOCYTES % 19.4 % (15.0-51.0); MEAN CORPUSCULAR HEMOGLOBIN 27.5 pg (29.0-33.0); MEAN CORPUSCULAR HGB CONC 30.3 g/dl (32.0-37.0); MEAN CORPUSCULAR VOLUME 90.7 fl (82.0-101.0); MEAN PLATELET VOLUME 9.5 fl (7.4-10.4); MONOCYTE # 0.7 10^3/ul (0.3-0.9); MONOCYTES % 13.1 % (0.0-11.0); NEUTROPHIL # 3.1 10^3/ul (1.6-7.5); PLATELET COUNT 246 10^3/UL (140-415); RED BLOOD COUNT 2.91 10^6/ul (4.70-6.10); RED CELL DISTRIBUTION WIDTH 15.7 % (11.5-14.5)
[2018-05-23 07:33] LABS: WHITE BLOOD COUNT 5.1 10^3/ul (4.8-10.8)
[2018-05-23 07:51] LABS: ANION GAP 7 (5-13); BLOOD UREA NITROGEN 23 mg/dl (7-20); CALCIUM 8.8 mg/dl (8.4-10.2); CARBON DIOXIDE 23 mmol/L (21-31); CHLORIDE 107 mmol/L (97-110); GLUCOSE 106 mg/dl (70-220); SODIUM 137 mmol/L (135-144)
[2018-05-23] MEDS: SUCRALFATE (100 MG/ML) 10ML CUP PO ×4 (08:01→19:28)
[2018-05-23] MEDS: POLYETHYLENE GLYCOL 17 GM PACKET PO (16:05)
[2018-05-23] MEDS: PANTOPRAZOLE (EC) 40 MG TAB PO (17:17)
[2018-05-23] MEDS: ACETAMINOPHEN 325 MG TAB PO (19:29)
[2018-05-23] MEDS: ZOLPIDEM 5 MG TAB PO (20:46)
[2018-05-24] MEDS: D5W-0.45 NACL + KCL 20 MEQ 1,000 ML IV ×2 (00:38→10:16)
[2018-05-24] MEDS: PANTOPRAZOLE (EC) 40 MG TAB PO ×2 (05:37→17:12)
[2018-05-24] MEDS: HYDROCODONE/APAP (5/325) TAB PO (06:09)
[2018-05-24] MEDS: SUCRALFATE (100 MG/ML) 10ML CUP PO ×4 (08:04→20:06)
[2018-05-24 08:57] LABS: ADD MAN DIFF? NO
[2018-05-24 09:05] LABS: WHITE BLOOD COUNT 5.9 10^3/ul (4.8-10.8)
[2018-05-24 09:05] LABS: BASOPHIL # 0.1 10^3/ul (0.0-0.1); BASOPHILS % 0.9 % (0.0-2.0); EOSINOPHILS # 0.4 10^3/ul (0.0-0.5); EOSINOPHILS % 6.5 % (0.0-7.0); HEMOGLOBIN 8.2 g/dl (14.0-18.0); LYMPHOCYTES # 0.9 10^3/ul (0.8-2.9); LYMPHOCYTES % 15.5 % (15.0-51.0); MEAN CORPUSCULAR HEMOGLOBIN 27.2 pg (29.0-33.0); MEAN CORPUSCULAR HGB CONC 30.4 g/dl (32.0-37.0); MEAN CORPUSCULAR VOLUME 89.4 fl (82.0-101.0); MEAN PLATELET VOLUME 10.2 fl (7.4-10.4); MONOCYTE # 0.7 10^3/ul (0.3-0.9); MONOCYTES % 11.8 % (0.0-11.0); NEUTROPHIL # 3.8 10^3/ul (1.6-7.5); PLATELET COUNT 256 10^3/UL (140-415); RED BLOOD COUNT 3.02 10^6/ul (4.70-6.10); RED CELL DISTRIBUTION WIDTH 15.7 % (11.5-14.5)
[2018-05-24 09:45] LABS: ALBUMIN 3.6 g/dl (3.3-4.9); ANION GAP 8 (5-13); BLOOD UREA NITROGEN 20 mg/dl (7-20); CALCIUM 9.1 mg/dl (8.4-10.2); CARBON DIOXIDE 26 mmol/L (21-31); CHLORIDE 105 mmol/L (97-110); CREATININE 1.74 mg/dl (0.61-1.24); GLUCOSE 96 mg/dl (70-220); MAGNESIUM 2.2 mg/dl (1.7-2.5); POTASSIUM 4.7 mmol/L (3.5-5.1); SODIUM 139 mmol/L (135-144)
[2018-05-24] MEDS: morphine 4 MG/ML VIAL IV ×2 (10:48→20:07)
[2018-05-24] MEDS: DOCUSATE SODIUM 100 MG CAP PO (12:14)
[2018-05-24] MEDS: ACETAMINOPHEN 325 MG TAB PO (14:00)
[2018-05-24] MEDS: ZOLPIDEM 5 MG TAB PO (21:15)
[2018-05-25] MEDS: PANTOPRAZOLE (EC) 40 MG TAB PO ×2 (05:28→17:17)
[2018-05-25 06:13] LABS: ADD MAN DIFF? NO
[2018-05-25 06:15] LABS: WHITE BLOOD COUNT 5.6 10^3/ul (4.8-10.8)
[2018-05-25 06:15] LABS: BASOPHIL # 0.1 10^3/ul (0.0-0.1); BASOPHILS % 1.3 % (0.0-2.0); EOSINOPHILS # 0.5 10^3/ul (0.0-0.5); EOSINOPHILS % 8.4 % (0.0-7.0); HEMATOCRIT 24.6 % (42.0-52.0); HEMOGLOBIN 7.6 g/dl (14.0-18.0); LYMPHOCYTES # 1.1 10^3/ul (0.8-2.9); LYMPHOCYTES % 19.7 % (15.0-51.0); MEAN CORPUSCULAR HEMOGLOBIN 27.2 pg (29.0-33.0); MEAN CORPUSCULAR HGB CONC 30.9 g/dl (32.0-37.0); MEAN CORPUSCULAR VOLUME 88.2 fl (82.0-101.0); MEAN PLATELET VOLUME 9.1 fl (7.4-10.4); MONOCYTE # 0.6 10^3/ul (0.3-0.9); MONOCYTES % 10.9 % (0.0-11.0); NEUTROPHIL # 3.3 10^3/ul (1.6-7.5); NEUTROPHILS % 59.3 % (39.0-77.0); PLATELET COUNT 241 10^3/UL (140-415); RED BLOOD COUNT 2.79 10^6/ul (4.70-6.10); RED CELL DISTRIBUTION WIDTH 15.4 % (11.5-14.5)
[2018-05-25 07:02] LABS: ALBUMIN 3.4 g/dl (3.3-4.9); ANION GAP 12 (5-13); BLOOD UREA NITROGEN 26 mg/dl (7-20); CALCIUM 9.4 mg/dl (8.4-10.2); CARBON DIOXIDE 26 mmol/L (21-31); CHLORIDE 104 mmol/L (97-110); CREATININE 1.62 mg/dl (0.61-1.24); GLUCOSE 93 mg/dl (70-220); MAGNESIUM 2.1 mg/dl (1.7-2.5); PHOSPHORUS 4.3 mg/dl (2.5-4.9); POTASSIUM 4.7 mmol/L (3.5-5.1); SODIUM 142 mmol/L (135-144)
[2018-05-25] MEDS: SUCRALFATE (100 MG/ML) 10ML CUP PO ×4 (08:42→21:18)
[2018-05-25] MEDS: ACETAMINOPHEN 325 MG TAB PO ×2 (08:50→22:24)
[2018-05-25] MEDS: DOCUSATE SODIUM 100 MG CAP PO (09:06)
[2018-05-25] MEDS: POLYETHYLENE GLYCOL 17 GM PACKET PO (09:06)
[2018-05-25] MEDS: HYDROCODONE/APAP (5/325) TAB PO ×2 (11:51→18:05)
[2018-05-25] MEDS: ZOLPIDEM 5 MG TAB PO (21:18)
[2018-05-26] MEDS: PANTOPRAZOLE (EC) 40 MG TAB PO ×2 (05:12→17:06)
[2018-05-26] MEDS: DOCUSATE SODIUM 100 MG CAP PO (05:12)
[2018-05-26 06:27] LABS: ADD MAN DIFF? NO
[2018-05-26 06:56] LABS: BASOPHIL # 0.1 10^3/ul (0.0-0.1); BASOPHILS % 1.1 % (0.0-2.0); EOSINOPHILS # 0.5 10^3/ul (0.0-0.5); EOSINOPHILS % 10.2 % (0.0-7.0); HEMATOCRIT 26.3 % (42.0-52.0); HEMOGLOBIN 8.2 g/dl (14.0-18.0); LYMPHOCYTES % 19.7 % (15.0-51.0); MEAN CORPUSCULAR HEMOGLOBIN 27.6 pg (29.0-33.0); MEAN CORPUSCULAR HGB CONC 31.2 g/dl (32.0-37.0); MEAN CORPUSCULAR VOLUME 88.6 fl (82.0-101.0); MEAN PLATELET VOLUME 9.3 fl (7.4-10.4); MONOCYTE # 0.7 10^3/ul (0.3-0.9); MONOCYTES % 12.3 % (0.0-11.0); NEUTROPHILS % 55.9 % (39.0-77.0); PLATELET COUNT 268 10^3/UL (140-415); RED BLOOD COUNT 2.97 10^6/ul (4.70-6.10); RED CELL DISTRIBUTION WIDTH 15.3 % (11.5-14.5)
[2018-05-26 06:56] LABS: WHITE BLOOD COUNT 5.3 10^3/ul (4.8-10.8)
[2018-05-26 07:26] LABS: ALBUMIN 3.7 g/dl (3.3-4.9); ANION GAP 11 (5-13); BLOOD UREA NITROGEN 25 mg/dl (7-20); CALCIUM 9.4 mg/dl (8.4-10.2); CARBON DIOXIDE 26 mmol/L (21-31); CHLORIDE 104 mmol/L (97-110); CREATININE 1.71 mg/dl (0.61-1.24); GLUCOSE 87 mg/dl (70-220); MAGNESIUM 2.3 mg/dl (1.7-2.5); PHOSPHORUS 4.7 mg/dl (2.5-4.9); POTASSIUM 4.6 mmol/L (3.5-5.1); SODIUM 141 mmol/L (135-144)
[2018-05-26] MEDS: SUCRALFATE (100 MG/ML) 10ML CUP PO ×4 (08:47→20:02)
[2018-05-26] MEDS: POLYETHYLENE GLYCOL 17 GM PACKET PO (08:47)
[2018-05-26] MEDS: HYDROCODONE/APAP (5/325) TAB PO ×2 (13:45→20:02)
[2018-05-26] MEDS: ZOLPIDEM 5 MG TAB PO (21:34)
[2018-05-27] MEDS: morphine 4 MG/ML VIAL IV (03:53)
[2018-05-27] MEDS: PANTOPRAZOLE (EC) 40 MG TAB PO ×2 (05:39→17:18)
[2018-05-27] MEDS: HYDROCODONE/APAP (5/325) TAB PO ×3 (05:39→22:25)
[2018-05-27 06:39] LABS: ADD MAN DIFF? NO
[2018-05-27 06:45] LABS: WHITE BLOOD COUNT 6.2 10^3/ul (4.8-10.8)
[2018-05-27 06:45] LABS: BASOPHIL # 0.1 10^3/ul (0.0-0.1); BASOPHILS % 1.3 % (0.0-2.0); EOSINOPHILS # 0.5 10^3/ul (0.0-0.5); EOSINOPHILS % 7.9 % (0.0-7.0); HEMATOCRIT 29.1 % (42.0-52.0); HEMOGLOBIN 8.9 g/dl (14.0-18.0); LYMPHOCYTES # 1.4 10^3/ul (0.8-2.9); LYMPHOCYTES % 23.2 % (15.0-51.0); MEAN CORPUSCULAR HEMOGLOBIN 27.3 pg (29.0-33.0); MEAN CORPUSCULAR HGB CONC 30.6 g/dl (32.0-37.0); MEAN CORPUSCULAR VOLUME 89.3 fl (82.0-101.0); MEAN PLATELET VOLUME 9.6 fl (7.4-10.4); MONOCYTE # 0.7 10^3/ul (0.3-0.9); MONOCYTES % 11.6 % (0.0-11.0); NEUTROPHIL # 3.4 10^3/ul (1.6-7.5); NEUTROPHILS % 55.4 % (39.0-77.0); PLATELET COUNT 321 10^3/UL (140-415); RED BLOOD COUNT 3.26 10^6/ul (4.70-6.10); RED CELL DISTRIBUTION WIDTH 15.2 % (11.5-14.5)
[2018-05-27 07:13] LABS: ALBUMIN 4.2 g/dl (3.3-4.9); ANION GAP 13 (5-13); BLOOD UREA NITROGEN 29 mg/dl (7-20); CALCIUM 9.7 mg/dl (8.4-10.2); CARBON DIOXIDE 28 mmol/L (21-31); CHLORIDE 101 mmol/L (97-110); GLUCOSE 91 mg/dl (70-220); MAGNESIUM 2.4 mg/dl (1.7-2.5); PHOSPHORUS 4.8 mg/dl (2.5-4.9); POTASSIUM 4.5 mmol/L (3.5-5.1); SODIUM 142 mmol/L (135-144)
[2018-05-27 07:18] LABS: URIC ACID 6.5 mg/dl (3.1-7.9)
[2018-05-27 07:18] LABS: CREATINE KINASE 27 IU/L (23-200)
[2018-05-27 07:24] LABS: SODIUM,URINE RANDOM 91 mmol/L (30-90)
[2018-05-27 08:00] LABS: CREATININE,URINE RANDOM 48.99 mg/dl (20-370); PROTEIN/CREAT RATIO 0.24 RATIO
[2018-05-27] MEDS: SUCRALFATE (100 MG/ML) 10ML CUP PO ×4 (09:07→20:39)
[2018-05-27] MEDS: ACETAMINOPHEN 325 MG TAB PO (15:08)
[2018-05-27] MEDS: NAPHAZOLINE/PHENIRAMINE 15 ML OPH BOTH EYES (20:38)
[2018-05-27] MEDS ORDERED: NAPHAZOLINE 0.012% 15 ML OPH BOTH EYES (21:00)
[2018-05-27] MEDS: ZOLPIDEM 5 MG TAB PO (21:58)
[2018-05-28] MEDS: ACETAMINOPHEN 325 MG TAB PO (03:09)
[2018-05-28] MEDS: PANTOPRAZOLE (EC) 40 MG TAB PO ×2 (06:36→17:24)
[2018-05-28 07:40] LABS: ADD MAN DIFF? NO
[2018-05-28 07:43] LABS: BASOPHIL # 0.1 10^3/ul (0.0-0.1); BASOPHILS % 1.1 % (0.0-2.0); EOSINOPHILS # 0.5 10^3/ul (0.0-0.5); HEMATOCRIT 25.1 % (42.0-52.0); HEMOGLOBIN 7.7 g/dl (14.0-18.0); LYMPHOCYTES # 1.4 10^3/ul (0.8-2.9); LYMPHOCYTES % 21.7 % (15.0-51.0); MEAN CORPUSCULAR HEMOGLOBIN 26.8 pg (29.0-33.0); MEAN CORPUSCULAR HGB CONC 30.7 g/dl (32.0-37.0); MEAN CORPUSCULAR VOLUME 87.5 fl (82.0-101.0); MEAN PLATELET VOLUME 9.3 fl (7.4-10.4); MONOCYTE # 0.7 10^3/ul (0.3-0.9); NEUTROPHIL # 3.7 10^3/ul (1.6-7.5); NEUTROPHILS % 57.6 % (39.0-77.0); PLATELET COUNT 314 10^3/UL (140-415); RED BLOOD COUNT 2.87 10^6/ul (4.70-6.10); RED CELL DISTRIBUTION WIDTH 15.1 % (11.5-14.5)
[2018-05-28 07:43] LABS: WHITE BLOOD COUNT 6.4 10^3/ul (4.8-10.8)
[2018-05-28 08:02] LABS: ALBUMIN 3.6 g/dl (3.3-4.9); ANION GAP 13 (5-13); BLOOD UREA NITROGEN 35 mg/dl (7-20); CALCIUM 9.2 mg/dl (8.4-10.2); CARBON DIOXIDE 28 mmol/L (21-31); CHLORIDE 101 mmol/L (97-110); CREATININE 1.65 mg/dl (0.61-1.24); GLUCOSE 96 mg/dl (70-220); MAGNESIUM 2.3 mg/dl (1.7-2.5); PHOSPHORUS 4.9 mg/dl (2.5-4.9); POTASSIUM 4.7 mmol/L (3.5-5.1); SODIUM 142 mmol/L (135-144)
[2018-05-28] MEDS: HYDROCODONE/APAP (5/325) TAB PO ×2 (08:21→15:27)
[2018-05-28] MEDS: POLYETHYLENE GLYCOL 17 GM PACKET PO (08:21)
[2018-05-28] MEDS: SUCRALFATE (100 MG/ML) 10ML CUP PO ×4 (08:21→20:10)
[2018-05-28] MEDS: DOCUSATE SODIUM 100 MG CAP PO (08:21)
[2018-05-28] MEDS: NAPHAZOLINE/PHENIRAMINE 15 ML OPH BOTH EYES (08:22)
[2018-05-28] MEDS: morphine LIQ (10 MG/5 ML) CUP PO (19:35)
[2018-05-28] MEDS: ZOLPIDEM 5 MG TAB PO (20:10)
[2018-05-28] MEDS: TAMSULOSIN (SR) 0.4 MG CAP PO (20:10)
[2018-05-29] MEDS: HYDROCODONE/APAP (5/325) TAB PO (03:11)
[2018-05-29] MEDS: PANTOPRAZOLE (EC) 40 MG TAB PO ×2 (06:12→17:25)
[2018-05-29 06:33] LABS: ADD MAN DIFF? NO
[2018-05-29 06:34] LABS: WHITE BLOOD COUNT 6.6 10^3/ul (4.8-10.8)
[2018-05-29 06:34] LABS: BASOPHIL # 0.1 10^3/ul (0.0-0.1); BASOPHILS % 1.1 % (0.0-2.0); EOSINOPHILS # 0.6 10^3/ul (0.0-0.5); EOSINOPHILS % 8.8 % (0.0-7.0); HEMATOCRIT 25.2 % (42.0-52.0); HEMOGLOBIN 7.7 g/dl (14.0-18.0); LYMPHOCYTES # 1.6 10^3/ul (0.8-2.9); MEAN CORPUSCULAR HEMOGLOBIN 26.6 pg (29.0-33.0); MEAN CORPUSCULAR HGB CONC 30.6 g/dl (32.0-37.0); MEAN CORPUSCULAR VOLUME 87.2 fl (82.0-101.0); MEAN PLATELET VOLUME 9.4 fl (7.4-10.4); MONOCYTE # 0.7 10^3/ul (0.3-0.9); MONOCYTES % 11.1 % (0.0-11.0); NEUTROPHIL # 3.6 10^3/ul (1.6-7.5); NEUTROPHILS % 54.4 % (39.0-77.0); PLATELET COUNT 345 10^3/UL (140-415); RED BLOOD COUNT 2.89 10^6/ul (4.70-6.10); RED CELL DISTRIBUTION WIDTH 15.2 % (11.5-14.5)
[2018-05-29 06:55] LABS: ALBUMIN 3.7 g/dl (3.3-4.9); ANION GAP 14 (5-13); BLOOD UREA NITROGEN 29 mg/dl (7-20); CARBON DIOXIDE 28 mmol/L (21-31); CHLORIDE 101 mmol/L (97-110); CREATININE 1.48 mg/dl (0.61-1.24); GLUCOSE 93 mg/dl (70-220); MAGNESIUM 2.2 mg/dl (1.7-2.5); PHOSPHORUS 4.6 mg/dl (2.5-4.9); POTASSIUM 4.5 mmol/L (3.5-5.1); SODIUM 143 mmol/L (135-144)
[2018-05-29] MEDS: SUCRALFATE (100 MG/ML) 10ML CUP PO ×4 (08:54→20:06)
[2018-05-29] MEDS: morphine LIQ (10 MG/5 ML) CUP PO (08:55)
[2018-05-29] MEDS: ACETAMINOPHEN 325 MG TAB PO (12:28)
[2018-05-29] MEDS ORDERED: ARTIFICIAL TEARS 15 ML OPH BOTH EYES (17:30)
[2018-05-29] MEDS: TAMSULOSIN (SR) 0.4 MG CAP PO (20:06)
[2018-05-29] MEDS: NAPHAZOLINE/PHENIRAMINE 15 ML OPH BOTH EYES (21:36)
[2018-05-29] MEDS: ZOLPIDEM 5 MG TAB PO (21:36)
[2018-05-30] MEDS: PANTOPRAZOLE (EC) 40 MG TAB PO ×2 (06:04→17:38)
[2018-05-30 06:12] LABS: ADD MAN DIFF? NO
[2018-05-30 06:25] LABS: BASOPHIL # 0.1 10^3/ul (0.0-0.1); EOSINOPHILS # 0.6 10^3/ul (0.0-0.5); EOSINOPHILS % 10.3 % (0.0-7.0); LYMPHOCYTES # 1.4 10^3/ul (0.8-2.9); LYMPHOCYTES % 22.8 % (15.0-51.0); MEAN CORPUSCULAR HGB CONC 30.8 g/dl (32.0-37.0); MEAN CORPUSCULAR VOLUME 87.8 fl (82.0-101.0); MEAN PLATELET VOLUME 8.7 fl (7.4-10.4); MONOCYTE # 0.7 10^3/ul (0.3-0.9); MONOCYTES % 12.2 % (0.0-11.0); NEUTROPHIL # 3.1 10^3/ul (1.6-7.5); PLATELET COUNT 320 10^3/UL (140-415); RED BLOOD COUNT 2.96 10^6/ul (4.70-6.10); RED CELL DISTRIBUTION WIDTH 15.3 % (11.5-14.5)
[2018-05-30 06:25] LABS: WHITE BLOOD COUNT 5.9 10^3/ul (4.8-10.8)
[2018-05-30 07:01] LABS: ALBUMIN 3.8 g/dl (3.3-4.9); ANION GAP 11 (5-13); BLOOD UREA NITROGEN 34 mg/dl (7-20); CALCIUM 9.3 mg/dl (8.4-10.2); CARBON DIOXIDE 29 mmol/L (21-31); CHLORIDE 102 mmol/L (97-110); CREATININE 1.51 mg/dl (0.61-1.24); GLUCOSE 90 mg/dl (70-220); MAGNESIUM 2.4 mg/dl (1.7-2.5); PHOSPHORUS 4.9 mg/dl (2.5-4.9); POTASSIUM 4.3 mmol/L (3.5-5.1); SODIUM 142 mmol/L (135-144)
[2018-05-30] MEDS: SUCRALFATE (100 MG/ML) 10ML CUP PO ×4 (08:45→21:10)
[2018-05-30] MEDS: HYDROCODONE/APAP (5/325) TAB PO ×2 (09:02→19:10)
[2018-05-30] MEDS: ACETAMINOPHEN 325 MG TAB PO ×2 (12:10→23:21)
[2018-05-30] MEDS: POLYETHYLENE GLYCOL 17 GM PACKET PO (12:10)
[2018-05-30] MEDS: ZOLPIDEM 5 MG TAB PO (21:10)
[2018-05-30] MEDS: TAMSULOSIN (SR) 0.4 MG CAP PO (21:10)
[2018-05-31] MEDS: PANTOPRAZOLE (EC) 40 MG TAB PO ×2 (05:40→17:14)
[2018-05-31] MEDS: DOCUSATE SODIUM 100 MG CAP PO (06:55)
[2018-05-31] MEDS: HYDROCODONE/APAP (5/325) TAB PO ×3 (06:55→18:49)
[2018-05-31] MEDS: SUCRALFATE (100 MG/ML) 10ML CUP PO ×4 (08:34→20:05)
[2018-05-31 09:02] LABS: ADD MAN DIFF? NO
[2018-05-31 09:07] LABS: BASOPHILS % 1.2 % (0.0-2.0); EOSINOPHILS % 8.2 % (0.0-7.0); HEMOGLOBIN 8.4 g/dl (14.0-18.0); LYMPHOCYTES % 16.1 % (15.0-51.0); MEAN CORPUSCULAR HEMOGLOBIN 26.1 pg (29.0-33.0); MEAN PLATELET VOLUME 9.7 fl (7.4-10.4); MONOCYTES % 9.3 % (0.0-11.0); NEUTROPHILS % 64.6 % (39.0-77.0); PLATELET COUNT 379 10^3/UL (140-415); RED BLOOD COUNT 3.22 10^6/ul (4.70-6.10); RED CELL DISTRIBUTION WIDTH 15.5 % (11.5-14.5)
[2018-05-31 09:07] LABS: WHITE BLOOD COUNT 6.6 10^3/ul (4.8-10.8)
[2018-05-31 09:08] LABS: BASOPHIL # 0.1 10^3/ul (0.0-0.1); EOSINOPHILS # 0.5 10^3/ul (0.0-0.5); LYMPHOCYTES # 1.1 10^3/ul (0.8-2.9); MONOCYTE # 0.6 10^3/ul (0.3-0.9); NEUTROPHIL # 4.3 10^3/ul (1.6-7.5)
[2018-05-31] MEDS: POLYETHYLENE GLYCOL 17 GM PACKET PO (09:27)
[2018-05-31 09:31] LABS: ANION GAP 16 (5-13); BLOOD UREA NITROGEN 32 mg/dl (7-20); CALCIUM 9.4 mg/dl (8.4-10.2); CARBON DIOXIDE 26 mmol/L (21-31); CHLORIDE 100 mmol/L (97-110); CREATININE 1.41 mg/dl (0.61-1.24); GLUCOSE 110 mg/dl (70-220); MAGNESIUM 2.3 mg/dl (1.7-2.5); PHOSPHORUS 4.8 mg/dl (2.5-4.9); POTASSIUM 4.6 mmol/L (3.5-5.1); SODIUM 142 mmol/L (135-144)
[2018-05-31] MEDS: ZOLPIDEM 5 MG TAB PO (18:36)
[2018-05-31] MEDS: TAMSULOSIN (SR) 0.4 MG CAP PO (20:05)
[2018-05-31] MEDS: ACETAMINOPHEN 325 MG TAB PO (20:05)
[2018-06-01] MEDS: HYDROCODONE/APAP (5/325) TAB PO ×3 (00:51→18:19)
[2018-06-01 06:33] LABS: ADD MAN DIFF? NO
[2018-06-01 06:41] LABS: BASOPHIL # 0.1 10^3/ul (0.0-0.1); BASOPHILS % 1.3 % (0.0-2.0); EOSINOPHILS # 0.6 10^3/ul (0.0-0.5); EOSINOPHILS % 9.4 % (0.0-7.0); HEMATOCRIT 23.7 % (42.0-52.0); HEMOGLOBIN 7.3 g/dl (14.0-18.0); LYMPHOCYTES # 1.4 10^3/ul (0.8-2.9); LYMPHOCYTES % 23.5 % (15.0-51.0); MEAN CORPUSCULAR HEMOGLOBIN 26.5 pg (29.0-33.0); MEAN CORPUSCULAR HGB CONC 30.8 g/dl (32.0-37.0); MEAN CORPUSCULAR VOLUME 86.2 fl (82.0-101.0); MONOCYTE # 0.7 10^3/ul (0.3-0.9); MONOCYTES % 11.8 % (0.0-11.0); NEUTROPHIL # 3.2 10^3/ul (1.6-7.5); NEUTROPHILS % 53.2 % (39.0-77.0); PLATELET COUNT 371 10^3/UL (140-415); RED BLOOD COUNT 2.75 10^6/ul (4.70-6.10); RED CELL DISTRIBUTION WIDTH 15.8 % (11.5-14.5)
[2018-06-01] MEDS: PANTOPRAZOLE (EC) 40 MG TAB PO ×2 (06:53→17:13)
[2018-06-01 07:17] LABS: ANION GAP 9 (5-13); BLOOD UREA NITROGEN 33 mg/dl (7-20); CALCIUM 9.2 mg/dl (8.4-10.2); CARBON DIOXIDE 29 mmol/L (21-31); CHLORIDE 102 mmol/L (97-110); CREATININE 1.59 mg/dl (0.61-1.24); GLUCOSE 89 mg/dl (70-220); MAGNESIUM 2.3 mg/dl (1.7-2.5); PHOSPHORUS 5.2 mg/dl (2.5-4.9); POTASSIUM 4.4 mmol/L (3.5-5.1); SODIUM 140 mmol/L (135-144)
[2018-06-01] MEDS: SUCRALFATE (100 MG/ML) 10ML CUP PO ×4 (08:34→20:25)
[2018-06-01] MEDS: POLYETHYLENE GLYCOL 17 GM PACKET PO (09:58)
[2018-06-01 10:38] LABS: HEMATOCRIT 27.9 % (42.0-52.0); HEMOGLOBIN 8.6 g/dl (14.0-18.0)
[2018-06-01] MEDS: DOCUSATE SODIUM 100 MG CAP PO (15:34)
[2018-06-01] MEDS: ACETAMINOPHEN 325 MG TAB PO (20:25)
[2018-06-02] MEDS: DOCUSATE SODIUM 100 MG CAP PO (03:00)
[2018-06-02] MEDS: PANTOPRAZOLE (EC) 40 MG TAB PO (05:31)
[2018-06-02] MEDS: HYDROCODONE/APAP (5/325) TAB PO ×2 (05:32→10:17)
[2018-06-02] MEDS: SUCRALFATE (100 MG/ML) 10ML CUP PO ×2 (08:54→13:18)
[2018-06-02] MEDS: ACETAMINOPHEN 325 MG TAB PO (12:20)
== END 2018-06-02 13:35 | disposition home or self-care (01) | DRG 378 ==
LOC: E/R 08:57 → 6WM 05-20 08:57 → 5EC 05-20 15:05 → 6WM 11:02
PROC: 0DJ08ZZ Inspection of Upper Intestinal Tract, Via Natural or Artificial Opening Endoscopic (ICD-10-PCS; principal; 2018-05-20 15:08)
PROC: 30233N1 Transfusion of Nonautologous Red Blood Cells into Peripheral Vein, Percutaneous Approach (ICD-10-PCS; 2018-05-20 15:08)
DX: K26.0 Acute duodenal ulcer with hemorrhage (principal); D62 Acute posthemorrhagic anemia; N17.9 Acute kidney failure, unspecified; F03.90 Unspecified dementia, unspecified severity, without behavioral disturbance, psychotic disturbance, mood disturbance, and anxiety; F09 Unspecified mental disorder due to known physiological condition; G31.84 Mild cognitive impairment of uncertain or unknown etiology; Z91.14 Patient's other noncompliance with medication regimen; Z87.891 Personal history of nicotine dependence
CPT/HCPCS: 36415; 36430; 71045; 80048; 80053; 80069; 81003; 82150; 82550; 82570; 82728; 83540; 83615; 83690; 83735; 84100; 84300; 84466; 84484; 84560; 85014; 85018; 85025; 85610; 85730; 86850; 86900; 86901; 86920; 89190; 93005; 96361; 96374; 96375; 97161; 99291-25

== ENCOUNTER 2018-06-06 15:42 | Emergency (ER) | payer OTHER ==
[2018-06-06] MEDS ORDERED: IBUPROFEN 200 MG TAB PO (18:00)
[2018-06-06] MEDS: traMADol 50 MG TAB PO (18:13)
[2018-06-06] MEDS: ACETAMINOPHEN 325 MG TAB PO (18:14)
== END 2018-06-06 19:58 | disposition home or self-care (01) ==
LOC: FTE 19:58
DX: S40.012A Contusion of left shoulder, initial encounter (principal); W01.0XXA Fall on same level from slipping, tripping and stumbling without subsequent striking against object, initial encounter; Y92.9 Unspecified place or not applicable
CPT/HCPCS: 73030; 99283-25

== ENCOUNTER 2018-06-13 02:29 | Inpatient (IN) | payer OTHER ==
[2018-06-13] MEDS: ONDANSETRON 4 MG INJ IV (03:20)
[2018-06-13] MEDS: SOD CHLORIDE 0.9% 500 ML IV (03:21)
[2018-06-13] MEDS: morphine 2 MG INJ IV (03:21)
[2018-06-13] MEDS: FAMOTIDINE 20 MG INJ IV (03:21)
[2018-06-13 03:35] LABS: ADD MAN DIFF? NO
[2018-06-13 03:36] LABS: WHITE BLOOD COUNT 9.8 10^3/ul (4.8-10.8)
[2018-06-13 03:36] LABS: BASOPHIL # 0.1 10^3/ul (0.0-0.1); BASOPHILS % 0.6 % (0.0-2.0); EOSINOPHILS # 0.6 10^3/ul (0.0-0.5); HEMATOCRIT 30.4 % (42.0-52.0); LYMPHOCYTES # 1.4 10^3/ul (0.8-2.9); LYMPHOCYTES % 13.9 % (15.0-51.0); MEAN CORPUSCULAR HEMOGLOBIN 25.2 pg (29.0-33.0); MEAN CORPUSCULAR HGB CONC 29.6 g/dl (32.0-37.0); MEAN CORPUSCULAR VOLUME 85.2 fl (82.0-101.0); MEAN PLATELET VOLUME 9.7 fl (7.4-10.4); MONOCYTES % 10.3 % (0.0-11.0); NEUTROPHIL # 6.7 10^3/ul (1.6-7.5); NEUTROPHILS % 68.7 % (39.0-77.0); PLATELET COUNT 337 10^3/UL (140-415); RED BLOOD COUNT 3.57 10^6/ul (4.70-6.10); RED CELL DISTRIBUTION WIDTH 16.3 % (11.5-14.5)
[2018-06-13 04:02] LABS: ALBUMIN 4.2 g/dl (3.3-4.9); ALBUMIN/GLOBULIN RATIO 1.16; ALKALINE PHOSPHATASE 70 IU/L (42-121); ANION GAP 11 (5-13); ASPARTATE AMINO TRANSFERASE 17 IU/L (15-46); BILIRUBIN,INDIRECT 0.1 mg/dl (0-1.1); BILIRUBIN,TOTAL 0.1 mg/dl (0.2-1.3); BLOOD UREA NITROGEN 18 mg/dl (7-20); CALCIUM 10.1 mg/dl (8.4-10.2); CARBON DIOXIDE 23 mmol/L (21-31); CHLORIDE 109 mmol/L (97-110); CREATININE 1.15 mg/dl (0.61-1.24); GLUCOSE 106 mg/dl (70-220); LIPASE 129 U/L (23-300); POTASSIUM 3.9 mmol/L (3.5-5.1); SODIUM 143 mmol/L (135-144); TOTAL PROTEIN 7.8 g/dl (6.1-8.1)
[2018-06-13 04:03] LABS: ALANINE AMINOTRANSFERASE < 6 IU/L (13-69)
[2018-06-13 04:09] LABS: INR 0.88; PARTIAL THROMBOPLASTIN TIME 24.3 Sec (23.0-35.0); PT RATIO 0.9
[2018-06-13 04:10] LABS: TROPONIN-I < 0.012 ng/ml (0.000-0.120)
[2018-06-13] MEDS ORDERED: BISACODYL (EC) 5 MG TAB PO (06:30)
[2018-06-13] MEDS ORDERED: ONDANSETRON 4 MG INJ IV (06:30)
[2018-06-13] MEDS ORDERED: NACL 0.9% 3 ML SYG IV (06:30)
[2018-06-13] MEDS ORDERED: DOCUSATE SODIUM 100 MG CAP PO (06:30)
[2018-06-13] MEDS: OCTREOTIDE 50 MCG in SOD CHLORIDE 0.9% 25 ML IVPB (06:35)
[2018-06-13] MEDS: OCTREOTIDE 500 MCG in SOD CHLORIDE 0.9% 49 ML IV (07:51)
[2018-06-13] MEDS: PANTOPRAZOLE IV 80 MG in SOD CHLORIDE 0.9% 100 ML IV (09:20)
[2018-06-13] MEDS: IOHEXOL 14.3 MG(I)/ML (ADULT) BTL PO (09:53)
[2018-06-13] MEDS: SOD CHLORIDE 0.9% 100 ML (13:09)
[2018-06-13] MEDS: IOHEXOL 300MG/ML 150 ML BTL (13:10)
[2018-06-13] MEDS: PANTOPRAZOLE (EC) 40 MG TAB PO (18:21)
[2018-06-13] MEDS: SUCRALFATE (100 MG/ML) 10ML CUP PO (20:56)
[2018-06-14] MEDS: PANTOPRAZOLE (EC) 40 MG TAB PO ×2 (05:39→17:12)
[2018-06-14 06:03] LABS: ADD UMIC NO; UR ASCORBIC ACID NEGATIVE (NEGATIVE); UR BILIRUBIN (Dip) NEGATIVE (NEGATIVE); UR BLOOD (Dip) NEGATIVE (NEGATIVE); UR CLARITY CLEAR (CLEAR); UR COLOR STRAW (YELLOW); UR GLUCOSE (Dip) NEGATIVE (NEGATIVE); UR KETONES (Dip) NEGATIVE (NEGATIVE); UR LEUKOCYTE ESTERASE (Dip) NEGATIVE Leu/ul (NEGATIVE); UR NITRITE (Dip) NEGATIVE (NEGATIVE); UR SPECIFIC GRAVITY (Dip) 1.026 (1.003-1.030); UR TOTAL PROTEIN (Dip) NEGATIVE (NEGATIVE); UR UROBILINOGEN (Dip) NEGATIVE (NEGATIVE)
[2018-06-14 06:52] LABS: ADD MAN DIFF? NO
[2018-06-14 06:54] LABS: BASOPHIL # 0.1 10^3/ul (0.0-0.1); BASOPHILS % 1.3 % (0.0-2.0); EOSINOPHILS # 0.5 10^3/ul (0.0-0.5); HEMATOCRIT 25.6 % (42.0-52.0); HEMOGLOBIN 7.8 g/dl (14.0-18.0); LYMPHOCYTES # 1.3 10^3/ul (0.8-2.9); MEAN CORPUSCULAR HEMOGLOBIN 25.6 pg (29.0-33.0); MEAN CORPUSCULAR HGB CONC 30.5 g/dl (32.0-37.0); MEAN CORPUSCULAR VOLUME 83.9 fl (82.0-101.0); MEAN PLATELET VOLUME 9.4 fl (7.4-10.4); MONOCYTE # 0.8 10^3/ul (0.3-0.9); MONOCYTES % 12.1 % (0.0-11.0); NEUTROPHIL # 3.7 10^3/ul (1.6-7.5); NEUTROPHILS % 58.1 % (39.0-77.0); PLATELET COUNT 307 10^3/UL (140-415); RED BLOOD COUNT 3.05 10^6/ul (4.70-6.10); RED CELL DISTRIBUTION WIDTH 16.5 % (11.5-14.5)
[2018-06-14 06:54] LABS: WHITE BLOOD COUNT 6.3 10^3/ul (4.8-10.8)
[2018-06-14 07:17] LABS: ALBUMIN 3.8 g/dl (3.3-4.9); ALBUMIN/GLOBULIN RATIO 1.15; ALKALINE PHOSPHATASE 53 IU/L (42-121); ANION GAP 5 (5-13); ASPARTATE AMINO TRANSFERASE 12 IU/L (15-46); BILIRUBIN,INDIRECT 0.3 mg/dl (0-1.1); BILIRUBIN,TOTAL 0.3 mg/dl (0.2-1.3); BLOOD UREA NITROGEN 12 mg/dl (7-20); CALCIUM 9.4 mg/dl (8.4-10.2); CARBON DIOXIDE 24 mmol/L (21-31); CHLORIDE 110 mmol/L (97-110); CREATININE 1.22 mg/dl (0.61-1.24); GLUCOSE 119 mg/dl (70-220); POTASSIUM 4.5 mmol/L (3.5-5.1); SODIUM 139 mmol/L (135-144); TOTAL PROTEIN 7.1 g/dl (6.1-8.1)
[2018-06-14 07:20] LABS: ALANINE AMINOTRANSFERASE < 6 IU/L (13-69)
[2018-06-14] MEDS: SUCRALFATE (100 MG/ML) 10ML CUP PO ×4 (08:21→20:48)
[2018-06-14] MEDS: ACETAMINOPHEN 325 MG TAB PO ×2 (08:58→20:48)
[2018-06-14] MEDS ORDERED: HYDROCODONE/APAP (5/325) TAB PO (21:00)
[2018-06-14] MEDS: traZODone 50 MG TAB PO (21:52)
[2018-06-15] MEDS: PANTOPRAZOLE (EC) 40 MG TAB PO ×2 (05:51→17:18)
[2018-06-15] MEDS: SUCRALFATE (100 MG/ML) 10ML CUP PO ×3 (09:14→17:18)
[2018-06-15 10:07] LABS: ADD MAN DIFF? NO
[2018-06-15 10:09] LABS: BASOPHILS % 0.6 % (0.0-2.0); EOSINOPHILS # 0.4 10^3/ul (0.0-0.5); EOSINOPHILS % 6.1 % (0.0-7.0); HEMATOCRIT 26.7 % (42.0-52.0); LYMPHOCYTES % 14.2 % (15.0-51.0); MEAN CORPUSCULAR HEMOGLOBIN 25.2 pg (29.0-33.0); MEAN PLATELET VOLUME 9.2 fl (7.4-10.4); MONOCYTE # 0.7 10^3/ul (0.3-0.9); MONOCYTES % 10.4 % (0.0-11.0); NEUTROPHIL # 4.8 10^3/ul (1.6-7.5); NEUTROPHILS % 68.1 % (39.0-77.0); PLATELET COUNT 291 10^3/UL (140-415); RED BLOOD COUNT 3.18 10^6/ul (4.70-6.10); RED CELL DISTRIBUTION WIDTH 16.2 % (11.5-14.5)
== END 2018-06-15 18:35 | disposition home health service (06) | DRG 379 ==
LOC: E/R 02:29 → PP2 06-14 11:45 → 5EC 06-14 20:47 → TEL 05:36
DX: K92.0 Hematemesis (principal); D64.9 Anemia, unspecified; F03.90 Unspecified dementia, unspecified severity, without behavioral disturbance, psychotic disturbance, mood disturbance, and anxiety; G31.84 Mild cognitive impairment of uncertain or unknown etiology; F09 Unspecified mental disorder due to known physiological condition; Z91.19 Patient's noncompliance with other medical treatment and regimen; K27.9 Peptic ulcer, site unspecified, unspecified as acute or chronic, without hemorrhage or perforation; F41.9 Anxiety disorder, unspecified
CPT/HCPCS: 71045; 74176; 74177; 80053; 81003; 83690; 84484; 85025; 85610; 85730; 93005; 99217; G0378

== ENCOUNTER 2018-06-19 05:21 | Emergency (ER) | payer OTHER | END 2018-06-19 06:30 | disposition home or self-care (01) | LOC: E/R 05:21 | DX: K59.00 Constipation, unspecified (principal); I10 Essential (primary) hypertension | CPT/HCPCS: 99282; Z7502 ==

== ENCOUNTER 2018-06-21 02:38 | Emergency (ER) | payer OTHER | END 2018-06-21 07:12 | disposition left against medical advice (07) | LOC: FTE 07:12 | DX: Z53.21 Procedure and treatment not carried out due to patient leaving prior to being seen by health care provider (principal) ==

== ENCOUNTER 2018-06-21 10:31 | Emergency (ER) | payer SELFPAY, OTHER | END 2018-06-21 13:17 | disposition left against medical advice (07) | LOC: E/R 13:17 | DX: Z53.21 Procedure and treatment not carried out due to patient leaving prior to being seen by health care provider (principal) ==

== ENCOUNTER 2018-06-26 17:04 | Emergency (ER) | payer SELFPAY | END 2018-06-26 20:46 | disposition left against medical advice (07) | LOC: E/R 17:04 | DX: Z53.21 Procedure and treatment not carried out due to patient leaving prior to being seen by health care provider (principal) ==

== ENCOUNTER 2018-07-18 11:41 | Emergency (ER) | payer SELFPAY | END 2018-07-18 15:53 | disposition left against medical advice (07) | LOC: E/R 11:41 | DX: Z53.21 Procedure and treatment not carried out due to patient leaving prior to being seen by health care provider (principal) ==

== ENCOUNTER 2018-07-20 05:39 | Emergency (ER) | payer OTHER ==
[2018-07-20 06:47] LABS: ADD MAN DIFF? NO
[2018-07-20] MEDS: BELLADONNA/PHENOBARBITAL TAB PO (06:49)
[2018-07-20] MEDS: ONDANSETRON 4 MG INJ IV (06:49)
[2018-07-20] MEDS: SOD CHLORIDE 0.9% 1,000 ML IV (06:49)
[2018-07-20] MEDS: LIDOCAINE/MYLANTA 40 ML BTL PO (06:49)
[2018-07-20] MEDS: PANTOPRAZOLE (EC) 40 MG TAB PO (06:49)
[2018-07-20] MEDS: FAMOTIDINE 20 MG TAB PO (06:49)
[2018-07-20 06:50] LABS: WHITE BLOOD COUNT 4.6 10^3/ul (4.8-10.8)
[2018-07-20 06:50] LABS: ABNORMAL IP MESSAGE 1; BASOPHIL # 0.1 10^3/ul (0.0-0.1); BASOPHILS % 1.5 % (0.0-2.0); EOSINOPHILS # 0.3 10^3/ul (0.0-0.5); EOSINOPHILS % 6.3 % (0.0-7.0); HEMATOCRIT 37.1 % (42.0-52.0); HEMOGLOBIN 10.6 g/dl (14.0-18.0); LYMPHOCYTES # 1.1 10^3/ul (0.8-2.9); LYMPHOCYTES % 23.3 % (15.0-51.0); MEAN CORPUSCULAR HEMOGLOBIN 24.1 pg (29.0-33.0); MEAN CORPUSCULAR HGB CONC 28.6 g/dl (32.0-37.0); MEAN CORPUSCULAR VOLUME 84.3 fl (82.0-101.0); MEAN PLATELET VOLUME 9.1 fl (7.4-10.4); MONOCYTE # 0.6 10^3/ul (0.3-0.9); MONOCYTES % 12.3 % (0.0-11.0); NEUTROPHIL # 2.6 10^3/ul (1.6-7.5); NEUTROPHILS % 56.4 % (39.0-77.0); PLATELET COUNT 297 10^3/UL (140-415); POSITIVE DIFF @See below; RED CELL DISTRIBUTION WIDTH 19.8 % (11.5-14.5)
[2018-07-20 07:19] LABS: ALANINE AMINOTRANSFERASE 9 IU/L (13-69); ALBUMIN 4.4 g/dl (3.3-4.9); ALBUMIN/GLOBULIN RATIO 1.29; ALKALINE PHOSPHATASE 67 IU/L (42-121); ANION GAP 12 (5-13); ASPARTATE AMINO TRANSFERASE 18 IU/L (15-46); BILIRUBIN,INDIRECT 0.3 mg/dl (0-1.1); BILIRUBIN,TOTAL 0.3 mg/dl (0.2-1.3); BLOOD UREA NITROGEN 18 mg/dl (7-20); CALCIUM 10.1 mg/dl (8.4-10.2); CARBON DIOXIDE 27 mmol/L (21-31); CHLORIDE 106 mmol/L (97-110); CREATININE 1.07 mg/dl (0.61-1.24); GLUCOSE 98 mg/dl (70-220); LIPASE 93 U/L (23-300); POTASSIUM 4.7 mmol/L (3.5-5.1); SODIUM 145 mmol/L (135-144); TOTAL PROTEIN 7.8 g/dl (6.1-8.1)
[2018-07-20 07:19] LABS: ETHANOL < 10.0 mg/dl (0-0)
== END 2018-07-20 09:47 | disposition home or self-care (01) ==
LOC: E/R 05:39
DX: K29.20 Alcoholic gastritis without bleeding (principal)
CPT/HCPCS: 36415; 80053; 80307; 83690; 85025; 96374; 99284-25

== ENCOUNTER 2018-07-24 14:12 | Emergency (ER) | payer OTHER | END 2018-07-24 14:55 | disposition home or self-care (01) | LOC: E/R 14:12 | DX: R10.84 Generalized abdominal pain (principal) | CPT/HCPCS: 99282; Z7502 ==

== ENCOUNTER 2018-07-25 20:30 | Emergency (ER) | payer SELFPAY, OTHER | END 2018-07-25 20:40 | disposition left against medical advice (07) | LOC: E/R 20:30 | DX: Z53.21 Procedure and treatment not carried out due to patient leaving prior to being seen by health care provider (principal) ==

== ENCOUNTER 2018-07-28 22:27 | Emergency (ER) | payer OTHER ==
[2018-07-28 23:21] LABS: URINE PH (Dip) POC 5.5 (5.0-8.5)
[2018-07-28 23:21] LABS: URINE BLOOD (Dip) POC Negative (NEGATIVE); URINE GLUCOSE (Dip) POC Negative (NEGATIVE); URINE KETONES (Dip) POC Negative (NEGATIVE); URINE LEUKOCYTE EST (Dip) POC Negative (NEGATIVE); URINE NITRITE (Dip) POC Negative (NEGATIVE); URINE TOTAL PROTEIN POC Negative (NEGATIVE)
[2018-07-28 23:31] LABS: ADD MAN DIFF? NO
[2018-07-28 23:34] LABS: WHITE BLOOD COUNT 5.8 10^3/ul (4.8-10.8)
[2018-07-28 23:34] LABS: BASOPHIL # 0.1 10^3/ul (0.0-0.1); EOSINOPHILS # 0.2 10^3/ul (0.0-0.5); HEMATOCRIT 32.4 % (42.0-52.0); HEMOGLOBIN 9.8 g/dl (14.0-18.0); LYMPHOCYTES # 1.1 10^3/ul (0.8-2.9); LYMPHOCYTES % 18.9 % (15.0-51.0); MEAN CORPUSCULAR HEMOGLOBIN 24.3 pg (29.0-33.0); MEAN CORPUSCULAR HGB CONC 30.2 g/dl (32.0-37.0); MEAN CORPUSCULAR VOLUME 80.4 fl (82.0-101.0); MEAN PLATELET VOLUME 9.5 fl (7.4-10.4); MONOCYTE # 0.6 10^3/ul (0.3-0.9); MONOCYTES % 10.2 % (0.0-11.0); NEUTROPHIL # 3.8 10^3/ul (1.6-7.5); NEUTROPHILS % 65.7 % (39.0-77.0); PLATELET COUNT 228 10^3/UL (140-415); RED BLOOD COUNT 4.03 10^6/ul (4.70-6.10); RED CELL DISTRIBUTION WIDTH 19.1 % (11.5-14.5)
[2018-07-29 00:04] LABS: ALBUMIN 3.9 g/dl (3.3-4.9); ALKALINE PHOSPHATASE 55 IU/L (42-121); ANION GAP 12 (5-13); ASPARTATE AMINO TRANSFERASE 18 IU/L (15-46); BILIRUBIN,INDIRECT 0.1 mg/dl (0-1.1); BILIRUBIN,TOTAL 0.1 mg/dl (0.2-1.3); BLOOD UREA NITROGEN 13 mg/dl (7-20); CALCIUM 9.5 mg/dl (8.4-10.2); CARBON DIOXIDE 24 mmol/L (21-31); CHLORIDE 106 mmol/L (97-110); CREATININE 0.89 mg/dl (0.61-1.24); GLUCOSE 93 mg/dl (70-220); LIPASE 109 U/L (23-300); POTASSIUM 4.4 mmol/L (3.5-5.1); SODIUM 142 mmol/L (135-144); TOTAL PROTEIN 6.9 g/dl (6.1-8.1)
[2018-07-29 00:10] LABS: ALANINE AMINOTRANSFERASE < 6 IU/L (13-69)
== END 2018-07-29 00:36 | disposition home or self-care (01) ==
LOC: E/R 07-29 00:36
DX: R10.9 Unspecified abdominal pain (principal); D64.9 Anemia, unspecified
CPT/HCPCS: 80053; 81003; 83690; 85025; 99283

== ENCOUNTER 2018-10-24 08:07 | Emergency (ER) | payer OTHER ==
[2018-10-24] MEDS: LIDOCAINE/MYLANTA 40 ML BTL PO (08:39)
== END 2018-10-24 09:03 | disposition home or self-care (01) ==
LOC: E/R 08:07
DX: R10.84 Generalized abdominal pain (principal)
CPT/HCPCS: 99282; Z7502

== ENCOUNTER 2018-10-24 23:19 | Emergency (ER) | payer OTHER ==
[2018-10-25] MEDS: LIDOCAINE/MYLANTA 40 ML BTL PO (01:17)
[2018-10-25] MEDS: SOD CHLORIDE 0.9% 500 ML IV (01:17)
[2018-10-25] MEDS: ONDANSETRON 4 MG INJ IV ×2 (01:17→02:45)
[2018-10-25] MEDS: morphine 2 MG INJ IV (01:17)
[2018-10-25 01:48] LABS: ADD MAN DIFF? NO
[2018-10-25 01:52] LABS: BASOPHILS % 0.4 % (0.0-2.0); EOSINOPHILS % 0.5 % (0.0-7.0); HEMATOCRIT 35.7 % (42.0-52.0); HEMOGLOBIN 10.5 g/dl (14.0-18.0); LYMPHOCYTES # 0.6 10^3/ul (0.8-2.9); LYMPHOCYTES % 7.5 % (15.0-51.0); MEAN CORPUSCULAR HEMOGLOBIN 22.5 pg (29.0-33.0); MEAN CORPUSCULAR HGB CONC 29.4 g/dl (32.0-37.0); MEAN CORPUSCULAR VOLUME 76.4 fl (82.0-101.0); MONOCYTE # 0.6 10^3/ul (0.3-0.9); MONOCYTES % 7.1 % (0.0-11.0); NEUTROPHIL # 6.9 10^3/ul (1.6-7.5); NEUTROPHILS % 84.3 % (39.0-77.0); PLATELET COUNT 402 10^3/UL (140-415); RED BLOOD COUNT 4.67 10^6/ul (4.70-6.10); RED CELL DISTRIBUTION WIDTH 17.9 % (11.5-14.5)
[2018-10-25 01:52] LABS: WHITE BLOOD COUNT 8.2 10^3/ul (4.8-10.8)
[2018-10-25 02:13] LABS: ALANINE AMINOTRANSFERASE 8 IU/L (13-69); ALBUMIN 4.1 g/dl (3.3-4.9); ALBUMIN/GLOBULIN RATIO 1.32; ALKALINE PHOSPHATASE 69 IU/L (42-121); ANION GAP 15 (5-13); ASPARTATE AMINO TRANSFERASE 18 IU/L (15-46); BILIRUBIN,INDIRECT 0.5 mg/dl (0-1.1); BILIRUBIN,TOTAL 0.5 mg/dl (0.2-1.3); BLOOD UREA NITROGEN 36 mg/dl (7-20); CALCIUM 9.2 mg/dl (8.4-10.2); CARBON DIOXIDE 27 mmol/L (21-31); CHLORIDE 103 mmol/L (97-110); CREATININE 1.36 mg/dl (0.61-1.24); GLUCOSE 133 mg/dl (70-220); LIPASE 73 U/L (23-300); POTASSIUM 3.8 mmol/L (3.5-5.1); SODIUM 145 mmol/L (135-144); TOTAL PROTEIN 7.2 g/dl (6.1-8.1)
[2018-10-25 03:02] LABS: ADD UMIC YES; UR ASCORBIC ACID NEGATIVE (NEGATIVE); UR BACTERIA FEW /HPF (NONE SEEN); UR BILIRUBIN (Dip) NEGATIVE (NEGATIVE); UR BLOOD (Dip) NEGATIVE (NEGATIVE); UR CLARITY CLEAR (CLEAR); UR COLOR YELLOW (YELLOW); UR GLUCOSE (Dip) NEGATIVE (NEGATIVE); UR KETONES (Dip) NEGATIVE (NEGATIVE); UR LEUKOCYTE ESTERASE (Dip) NEGATIVE Leu/ul (NEGATIVE); UR NITRITE (Dip) NEGATIVE (NEGATIVE); UR RBC 4 /HPF (0-5); UR SPECIFIC GRAVITY (Dip) > 1.060 (1.003-1.030); UR TOTAL PROTEIN (Dip) 1+ mg/dl (NEGATIVE); UR UROBILINOGEN (Dip) NEGATIVE (NEGATIVE); UR WBC 3 /HPF (0-5)
== END 2018-10-25 04:21 | disposition home or self-care (01) ==
LOC: E/R 23:19
DX: R10.13 Epigastric pain (principal)
CPT/HCPCS: 36415; 71045; 80053; 81001; 83690; 85025; 96374; 96375; 96376; 99284-25

== ENCOUNTER 2018-10-25 05:51 | Inpatient (IN) | payer OTHER ==
[2018-10-25 06:55] LABS: WHITE BLOOD COUNT 2.4 10^3/ul (4.8-10.8)
[2018-10-25 06:55] LABS: ABNORMAL IP MESSAGE 1; HEMATOCRIT 35.6 % (42.0-52.0); HEMOGLOBIN 10.5 g/dl (14.0-18.0); MEAN CORPUSCULAR HEMOGLOBIN 22.7 pg (29.0-33.0); MEAN CORPUSCULAR HGB CONC 29.5 g/dl (32.0-37.0); MEAN CORPUSCULAR VOLUME 76.9 fl (82.0-101.0); MEAN PLATELET VOLUME 8.9 fl (7.4-10.4); PLATELET COUNT 360 10^3/UL (140-415); POSITIVE DIFF @See below; RED BLOOD COUNT 4.63 10^6/ul (4.70-6.10); RED CELL DISTRIBUTION WIDTH 17.5 % (11.5-14.5)
[2018-10-25 07:04] LABS: ADD MAN DIFF? YES
[2018-10-25 07:15] LABS: INR 1.01; PROTIME 13.4 Sec (11.9-14.9)
[2018-10-25 07:21] LABS: ALBUMIN 4.2 g/dl (3.3-4.9); ALBUMIN/GLOBULIN RATIO 1.35; ALKALINE PHOSPHATASE 69 IU/L (42-121); AMYLASE 104 U/L (11-123); ANION GAP 15 (5-13); ASPARTATE AMINO TRANSFERASE 17 IU/L (15-46); BILIRUBIN,INDIRECT 0.8 mg/dl (0-1.1); BILIRUBIN,TOTAL 0.8 mg/dl (0.2-1.3); BLOOD UREA NITROGEN 42 mg/dl (7-20); CALCIUM 9.4 mg/dl (8.4-10.2); CARBON DIOXIDE 25 mmol/L (21-31); CHLORIDE 104 mmol/L (97-110); CREATININE 1.84 mg/dl (0.61-1.24); GLUCOSE 130 mg/dl (70-220); LIPASE 73 U/L (23-300); POTASSIUM 4.8 mmol/L (3.5-5.1); SODIUM 144 mmol/L (135-144); TOTAL PROTEIN 7.3 g/dl (6.1-8.1)
[2018-10-25 07:22] LABS: ALANINE AMINOTRANSFERASE < 6 IU/L (13-69)
[2018-10-25 07:23] LABS: ETHANOL < 10.0 mg/dl (0-0)
[2018-10-25 07:30] LABS: TROPONIN-I < 0.012 ng/ml (0.000-0.120)
[2018-10-25] MEDS: LIDOCAINE/MYLANTA 40 ML BTL PO (07:30)
[2018-10-25] MEDS: BELLADONNA/PHENOBARBITAL TAB PO (07:30)
[2018-10-25 07:41] LABS: ANISOCYTOSIS 1+ (0-0); BAND NEUTROPHILS #M 1.2 10^3/ul (0.0-0.6); BAND NEUTROPHILS % (M) 52 % (0-4); GIANT THROMBO% (M) 5 % (0-0); HYPOCHROMASIA 2+ (0-0); LYMPHOCYTES #M 0.1 10^3/ul (0.8-2.9); LYMPHOCYTES % (M) 7 % (15-51); METAMYELOCYTES #M 0.1 10^3/ul (0.0-0.0); METAMYELOCYTES %M 5 % (0-0); MICROCYTOSIS 1+ (0-0); MONOCYTE #M 0.2 10^3/ul (0.3-0.9); MONOCYTES % (M) 9 % (0-11); PLASMAC%(M) 1 % (0); PLATELET ESTIMATE NORMAL; POIKILOCYTOSIS 1+ (0-0); POLYCHROMASIA 1+ (0-0); SEG NEUT #M 0.7 10^3/ul (1.6-7.5); SEGMENTED NEUTROPHILS (M) % 26 % (39-77); SMUDGE%M 7 % (0-0)
[2018-10-25 07:42] LABS: ACETAMINOPHEN < 10.0 ug/ml (10.0-30.0); SALICYLATE < 1.0 mg/dl (5.0-30.0)
[2018-10-25] MEDS: SOD CHLORIDE 0.9% 1,000 ML IV ×7 (08:25→22:11)
[2018-10-25] MEDS ORDERED: ONDANSETRON 4 MG INJ IV ×3 (11:00→18:30)
[2018-10-25] MEDS ORDERED: ACETAMINOPHEN 325 MG TAB PO (11:00)
[2018-10-25] MEDS: PIPER-TAZO 3.375 GM IV (PMX) 100 ML IVPB ×2 (12:13→22:17)
[2018-10-25] MEDS ORDERED: FAMOTIDINE 20 MG INJ IV ×2 (14:00→21:00)
[2018-10-25] MEDS ORDERED: morphine 2 MG INJ IV (14:00)
[2018-10-25] MEDS: SOD CHLORIDE 0.9% 500 ML IV (14:47)
[2018-10-25] MEDS ORDERED: LIDOCAINE 1% (MDV) 20 ML INJ (16:20)
[2018-10-25] MEDS ORDERED: SUCCINYLCHOLINE CHLORIDE 100 MG/5 ML SYG IV (16:20)
[2018-10-25] MEDS ORDERED: ONDANSETRON 4 MG INJ (16:20)
[2018-10-25] MEDS ORDERED: MIDAZOLAM 1 MG/ML 2 ML INJ ×2 (16:20→19:17)
[2018-10-25] MEDS ORDERED: ETOMIDATE 20 MG INJ (16:20)
[2018-10-25] MEDS ORDERED: EPINEPHrine 0.1 MG/ML SYG (16:20)
[2018-10-25] MEDS ORDERED: ROCURONIUM 50 MG INJ (16:20)
[2018-10-25] MEDS ORDERED: CEFAZOLIN 1 GM INJ (17:15)
[2018-10-25 17:16] LABS: IMMEDIATE SPIN CROSSMATCH 1 4
[2018-10-25] MEDS ORDERED: DEXAMETHASONE 4 MG/ML 5 ML INJ (17:49)
[2018-10-25] MEDS ORDERED: LORAZEPAM 2 MG INJ IV (18:30)
[2018-10-25] MEDS ORDERED: ALBUMIN HUMAN 5% 250 ML IV (18:30)
[2018-10-25] MEDS ORDERED: EPHEDrine 25 MG/5 ML SYG IV (18:30)
[2018-10-25] MEDS ORDERED: HYDROmorphONE 1 MG/5 ML IV SYRINGE IV (18:30)
[2018-10-25] MEDS ORDERED: MEPERIDINE 25 MG INJ IV (18:30)
[2018-10-25] MEDS ORDERED: HYDROmorphONE 0.5 MG/0.5 ML SYG IV ×4 (18:30→20:00)
[2018-10-25] MEDS ORDERED: NALOXONE (0.4 MG/ML) INJ IV (19:00)
[2018-10-25] MEDS ORDERED: ROPIVACAINE 0.5 % 30 ML VIAL (19:03)
[2018-10-25] MEDS ORDERED: FENTAnyl 50 MCG/ML VIAL (19:17)
[2018-10-25] MEDS ORDERED: FENTAnyl 50 MCG/ML VIAL IV ×3 (20:00)
[2018-10-25] MEDS ORDERED: PROPOFOL 100 ML (20:09)
[2018-10-25 20:11] LABS: CREATINE KINASE 86 IU/L (23-200)
[2018-10-25 20:25] LABS: CK INDEX 2.3; TROPONIN-I < 0.012 ng/ml (0.000-0.120)
[2018-10-25 20:40] LABS: ABNORMAL IP MESSAGE 1; HEMATOCRIT 42.8 % (42.0-52.0); HEMOGLOBIN 13.1 g/dl (14.0-18.0); MEAN CORPUSCULAR HEMOGLOBIN 24.8 pg (29.0-33.0); MEAN CORPUSCULAR HGB CONC 30.6 g/dl (32.0-37.0); MEAN CORPUSCULAR VOLUME 81.1 fl (82.0-101.0); MEAN PLATELET VOLUME 9.1 fl (7.4-10.4); PLATELET COUNT 265 10^3/UL (140-415); POSITIVE DIFF @See below; RED BLOOD COUNT 5.28 10^6/ul (4.70-6.10); RED CELL DISTRIBUTION WIDTH 17.3 % (11.5-14.5)
[2018-10-25 20:40] LABS: WHITE BLOOD COUNT 3.7 10^3/ul (4.8-10.8)
[2018-10-25 20:58] LABS: ADD MAN DIFF? YES
[2018-10-25 21:01] LABS: ALANINE AMINOTRANSFERASE 17 IU/L (13-69); ALBUMIN 2.6 g/dl (3.3-4.9); ALBUMIN/GLOBULIN RATIO 0.96; ALKALINE PHOSPHATASE 39 IU/L (42-121); ANION GAP 6 (5-13); ASPARTATE AMINO TRANSFERASE 26 IU/L (15-46); BILIRUBIN,INDIRECT 0.5 mg/dl (0-1.1); BILIRUBIN,TOTAL 0.5 mg/dl (0.2-1.3); BLOOD UREA NITROGEN 38 mg/dl (7-20); CALCIUM 7.4 mg/dl (8.4-10.2); CARBON DIOXIDE 18 mmol/L (21-31); CHLORIDE 115 mmol/L (97-110); CREATININE 1.55 mg/dl (0.61-1.24); GLUCOSE 115 mg/dl (70-220); POTASSIUM 4.7 mmol/L (3.5-5.1); SODIUM 139 mmol/L (135-144); TOTAL PROTEIN 5.3 g/dl (6.1-8.1)
[2018-10-25 21:47] LABS: AADO2 Arterial 119.7 mmHg (7.0-24.0); Arterial Base Excess -12.2 mmol/L (-3.0-3); Arterial Blood Gas Oxygen Sat 97.5 mmHG (95.0-100.0); Arterial COHb 0.5 % (0.0-3.0); Arterial Fraction of Oxyhgb 96.6 % (93.0-99.0); Arterial MetHb 0.4 % (0.0-1.5); MODE VENT - AC; Site A-Line
[2018-10-25 22:00] LABS: ANISOCYTOSIS 2+ (0-0); BAND NEUTROPHILS #M 1.6 10^3/ul (0.0-0.6); BAND NEUTROPHILS % (M) 44 % (0-4); BURR CELLS 3+ (0-0); GIANT THROMBO% (M) 1 % (0-0); LYMPHOCYTES #M 0.2 10^3/ul (0.8-2.9); LYMPHOCYTES % (M) 8 % (15-51); METAMYELOCYTES #M 0.8 10^3/ul (0.0-0.0); METAMYELOCYTES %M 23 % (0-0); MICROCYTOSIS 1+ (0-0); MONOCYTE #M 0.4 10^3/ul (0.3-0.9); MONOCYTES % (M) 13 % (0-11); PLATELET ESTIMATE NORMAL; POIKILOCYTOSIS 3+ (0-0); POLYCHROMASIA 1+ (0-0); SEG NEUT #M 0.5 10^3/ul (1.6-7.5); SEGMENTED NEUTROPHILS (M) % 12 % (39-77); SMUDGE%M 3 % (0-0)
[2018-10-25 22:10] LABS: ADD UMIC YES; UR ASCORBIC ACID NEGATIVE (NEGATIVE); UR BILIRUBIN (Dip) NEGATIVE (NEGATIVE); UR BLOOD (Dip) 2+ mg/dL (NEGATIVE); UR CLARITY SLIGHTLY CLOUDY (CLEAR); UR COLOR YELLOW (YELLOW); UR GLUCOSE (Dip) NEGATIVE (NEGATIVE); UR KETONES (Dip) NEGATIVE (NEGATIVE); UR LEUKOCYTE ESTERASE (Dip) NEGATIVE Leu/ul (NEGATIVE); UR MUCUS FEW /HPF (NONE SEEN); UR NITRITE (Dip) NEGATIVE (NEGATIVE); UR RBC 3 /HPF (0-5); UR SPECIFIC GRAVITY (Dip) 1.021 (1.003-1.030); UR TOTAL PROTEIN (Dip) 1+ mg/dl (NEGATIVE); UR UROBILINOGEN (Dip) NEGATIVE (NEGATIVE); UR WBC 3 /HPF (0-5)
[2018-10-25] MEDS: PROPOFOL 100 ML IV (22:10)
[2018-10-25] MEDS: metroNIDAZOLE 500 MG/NS (PMX) 100 ML IVPB (22:11)
[2018-10-25] MEDS: FLUCONAZOLE 400 MG/NS (PMX) 200 ML IVPB (22:11)
[2018-10-25] MEDS: CEFAZOLIN 2 GM/50 ML (PMX) 50 ML IVPB (22:11)
[2018-10-25] MEDS: FENTAnyl (DRIP) 1000 mcg/100mL 100 ML IV (22:19)
[2018-10-25 22:25] LABS: CREATININE,URINE RANDOM 67.55 mg/dl (20-370)
[2018-10-25 22:25] LABS: SODIUM,URINE RANDOM 88 mmol/L (30-90)
[2018-10-25 23:11] LABS: AMPHETAMINE/METHAMPHETAMINE Negative (NEGATIVE); BARBITURATES Negative (NEGATIVE); CANNABINOIDS Negative (NEGATIVE); COCAINE Negative (NEGATIVE); OPIATES Positive (NEGATIVE)
[2018-10-25 23:12] LABS: BENZODIAZEPINES Positive (NEGATIVE)
[2018-10-25] MEDS: NORepinephrine 8MG/250 ML (PMX 250 ML IV (23:20)
[2018-10-26] MEDS: SOD CHLORIDE 0.45% 1,000 ML IV ×2 (00:38→07:50)
[2018-10-26] MEDS: NA BICARBONATE 8.4% 50 ML SYG IV (00:38)
[2018-10-26 01:00] LABS: CREATINE KINASE 83 IU/L (23-200)
[2018-10-26 01:13] LABS: CK INDEX 3.2; TROPONIN-I < 0.012 ng/ml (0.000-0.120)
[2018-10-26 01:16] LABS: CK-MB 2.66 ng/ml (0.0-2.4)
[2018-10-26] MEDS: CEFAZOLIN 2 GM/50 ML (PMX) 50 ML IVPB ×2 (02:54→09:42)
[2018-10-26] MEDS: metroNIDAZOLE 500 MG/NS (PMX) 100 ML IVPB ×2 (02:54→09:42)
[2018-10-26] MEDS: PANTOPRAZOLE 40 MG INJ IV ×2 (05:24→17:53)
[2018-10-26] MEDS: PIPER-TAZO 3.375 GM IV (PMX) 100 ML IVPB ×3 (05:24→21:16)
[2018-10-26 05:30] LABS: ABNORMAL IP MESSAGE 1; HEMATOCRIT 39.8 % (42.0-52.0); HEMOGLOBIN 12.3 g/dl (14.0-18.0); MEAN CORPUSCULAR HEMOGLOBIN 24.4 pg (29.0-33.0); MEAN CORPUSCULAR HGB CONC 30.9 g/dl (32.0-37.0); MEAN PLATELET VOLUME 9.4 fl (7.4-10.4); PLATELET COUNT 329 10^3/UL (140-415); POSITIVE DIFF @See below; RED BLOOD COUNT 5.04 10^6/ul (4.70-6.10); RED CELL DISTRIBUTION WIDTH 17.2 % (11.5-14.5)
[2018-10-26 05:30] LABS: WHITE BLOOD COUNT 9.3 10^3/ul (4.8-10.8)
[2018-10-26 05:52] LABS: ALANINE AMINOTRANSFERASE 16 IU/L (13-69); ALBUMIN 2.6 g/dl (3.3-4.9); ALBUMIN/GLOBULIN RATIO 0.96; ALKALINE PHOSPHATASE 37 IU/L (42-121); ANION GAP 10 (5-13); ASPARTATE AMINO TRANSFERASE 28 IU/L (15-46); BILIRUBIN,INDIRECT 0.6 mg/dl (0-1.1); BILIRUBIN,TOTAL 0.6 mg/dl (0.2-1.3); BLOOD UREA NITROGEN 42 mg/dl (7-20); CALCIUM 7.9 mg/dl (8.4-10.2); CARBON DIOXIDE 19 mmol/L (21-31); CHLORIDE 114 mmol/L (97-110); CHOLESTEROL 108 mg/dl (100-200); CREATININE 1.56 mg/dl (0.61-1.24); GLUCOSE 112 mg/dl (70-220); HDL CHOLESTEROL 52 mg/dl (31-75); LDL CHOLESTEROL,CALCULATED 43 mg/dl; MAGNESIUM 3.4 mg/dl (1.7-2.5); PHOSPHORUS 4.3 mg/dl (2.5-4.9); POTASSIUM 5.2 mmol/L (3.5-5.1); SODIUM 143 mmol/L (135-144); TOTAL PROTEIN 5.3 g/dl (6.1-8.1); TRIGLYCERIDES 65 mg/dl (0-149)
[2018-10-26 06:07] LABS: T3 UPTAKE 48.6 % (23.5-40.5)
[2018-10-26 06:11] LABS: ADD MAN DIFF? YES
[2018-10-26 07:16] LABS: AADO2 Arterial 61.1 mmHg (7.0-24.0); Arterial Base Excess -7.6 mmol/L (-3.0-3); Arterial Blood Gas Oxygen Sat 98.2 mmHG (95.0-100.0); Arterial COHb 0.5 % (0.0-3.0); Arterial Fraction of Oxyhgb 97.5 % (93.0-99.0); Arterial HCO3 16.8 mmol/L (22.0-26.0); Arterial MetHb 0.2 % (0.0-1.5); Arterial pCO2 31.1 mmhg (35-45); MODE VENT - AC; Site A-Line
[2018-10-26] MEDS: SOD CHLORIDE 0.9% 1,000 ML IV (07:50)
[2018-10-26] MEDS: PROPOFOL 100 ML IV ×2 (07:51→19:35)
[2018-10-26 09:24] LABS: LACTIC ACID 2.1 mmol/L (0.5-2.0)
[2018-10-26] MEDS: NORepinephrine 8MG/250 ML (PMX 250 ML IV (09:41)
[2018-10-26] MEDS: SODIUM BICARBONATE (IV ADD) 100 MEQ in DEXTROSE 5%-0.45% NACL 1,000 ML IV ×2 (10:26→20:59)
[2018-10-26 11:43] LABS: FREE THYROXINE INDEX (Calc) 2.48 ug/ml (0.65-3.89); T4 (THYROXINE) 5.1 ug/dl (5.5-11.0)
[2018-10-26 11:55] LABS: AADO2 Arterial 72.3 mmHg (7.0-24.0); Arterial Base Excess -8.4 mmol/L (-3.0-3); Arterial COHb 0.4 % (0.0-3.0); Arterial Fraction of Oxyhgb 97.4 % (93.0-99.0); Arterial HCO3 15.6 mmol/L (22.0-26.0); Arterial MetHb 0.2 % (0.0-1.5); MODE VENT - AC; Site A-Line
[2018-10-26 12:00] LABS: ANION GAP 8 (5-13); BLOOD UREA NITROGEN 39 mg/dl (7-20); CALCIUM 7.7 mg/dl (8.4-10.2); CARBON DIOXIDE 18 mmol/L (21-31); CHLORIDE 115 mmol/L (97-110); CREATININE 1.44 mg/dl (0.61-1.24); GLUCOSE 121 mg/dl (70-220); POTASSIUM 4.8 mmol/L (3.5-5.1); SODIUM 141 mmol/L (135-144)
[2018-10-26 12:54] LABS: ANISOCYTOSIS 2+ (0-0); BAND NEUTROPHILS % (M) 65 % (0-4); BURR CELLS 3+ (0-0); GIANT THROMBO% (M) 1 % (0-0); LYMPHOCYTES #M 0.5 10^3/ul (0.8-2.9); LYMPHOCYTES % (M) 6 % (15-51); METAMYELOCYTES #M 0.4 10^3/ul (0.0-0.0); METAMYELOCYTES %M 5 % (0-0); MONOCYTE #M 0.5 10^3/ul (0.3-0.9); MONOCYTES % (M) 6 % (0-11); MYELOCYTES % (M) 1 % (0-0); OVALOCYTES 1+ (0-0); PLATELET ESTIMATE NORMAL; POIKILOCYTOSIS 3+ (0-0); POLYCHROMASIA 1+ (0-0); SEG NEUT #M 2.1 10^3/ul (1.6-7.5); SEGMENTED NEUTROPHILS (M) % 17 % (39-77); SMUDGE%M 3 % (0-0)
[2018-10-26 13:03] LABS: LACTIC ACID 1.7 mmol/L (0.5-2.0)
[2018-10-26] MEDS ORDERED: FENTAnyl 2MCG/ML-ROPIV 0.2% 100 ML BAG EPI (19:30)
[2018-10-26] MEDS: HEPARIN 5,000 UNIT/1 ML VIAL SC (21:21)
[2018-10-27] MEDS: NORepinephrine 8MG/250 ML (PMX 250 ML IV (01:17)
[2018-10-27] MEDS: PANTOPRAZOLE 40 MG INJ IV ×2 (05:28→18:54)
[2018-10-27] MEDS: PIPER-TAZO 3.375 GM IV (PMX) 100 ML IVPB ×3 (05:28→21:17)
[2018-10-27] MEDS: PROPOFOL 100 ML IV ×2 (05:47→20:30)
[2018-10-27] MEDS: FENTAnyl (DRIP) 1000 mcg/100mL 100 ML IV (05:52)
[2018-10-27 05:56] LABS: WHITE BLOOD COUNT 14.9 10^3/ul (4.8-10.8)
[2018-10-27 05:56] LABS: ABNORMAL IP MESSAGE 1; HEMATOCRIT 33.2 % (42.0-52.0); HEMOGLOBIN 10.4 g/dl (14.0-18.0); MEAN CORPUSCULAR HEMOGLOBIN 24.7 pg (29.0-33.0); MEAN CORPUSCULAR HGB CONC 31.3 g/dl (32.0-37.0); MEAN CORPUSCULAR VOLUME 78.9 fl (82.0-101.0); MEAN PLATELET VOLUME 9.9 fl (7.4-10.4); PLATELET COUNT 239 10^3/UL (140-415); POSITIVE DIFF @See below; RED BLOOD COUNT 4.21 10^6/ul (4.70-6.10); RED CELL DISTRIBUTION WIDTH 18.3 % (11.5-14.5)
[2018-10-27 06:14] LABS: LACTIC ACID 2.4 mmol/L (0.5-2.0)
[2018-10-27 06:19] LABS: ANION GAP 6 (5-13); BLOOD UREA NITROGEN 37 mg/dl (7-20); CALCIUM 8.2 mg/dl (8.4-10.2); CARBON DIOXIDE 24 mmol/L (21-31); CHLORIDE 112 mmol/L (97-110); GLUCOSE 117 mg/dl (70-220); MAGNESIUM 3.4 mg/dl (1.7-2.5); PHOSPHORUS 2.9 mg/dl (2.5-4.9); POTASSIUM 4.7 mmol/L (3.5-5.1); SODIUM 142 mmol/L (135-144)
[2018-10-27 06:25] LABS: ADD MAN DIFF? YES
[2018-10-27] MEDS ORDERED: VANCOMYCIN IV PER PHARMACY XX (07:00)
[2018-10-27 07:51] LABS: AADO2 Arterial 102.6 mmHg (7.0-24.0); Allen Test ACCEPTAB; Arterial Base Excess -4.7 mmol/L (-3.0-3); Arterial Blood Gas Oxygen Sat 95.4 mmHG (95.0-100.0); Arterial COHb 0.3 % (0.0-3.0); Arterial Fraction of Oxyhgb 94.8 % (93.0-99.0); Arterial HCO3 18.3 mmol/L (22.0-26.0); Arterial MetHb 0.3 % (0.0-1.5); Arterial pCO2 27.7 mmhg (35-45); MODE VENT - AC; Site Left Radial
[2018-10-27] MEDS: SOD CHLORIDE 0.9% 1,000 ML IV (07:59)
[2018-10-27 09:44] LABS: ANISOCYTOSIS 1+ (0-0); BAND NEUTROPHILS #M 5.9 10^3/ul (0.0-0.6); BAND NEUTROPHILS % (M) 40 % (0-4); BURR CELLS 1+ (0-0); GIANT THROMBO% (M) 3 % (0-0); LYMPHOCYTES #M 0.8 10^3/ul (0.8-2.9); LYMPHOCYTES % (M) 6 % (15-51); MICROCYTOSIS 1+ (0-0); MONOCYTE #M 1.4 10^3/ul (0.3-0.9); MONOCYTES % (M) 10 % (0-11); PLATELET ESTIMATE NORMAL; POIKILOCYTOSIS 2+ (0-0); POLYCHROMASIA 1+ (0-0); SEG NEUT #M 7.6 10^3/ul (1.6-7.5); SEGMENTED NEUTROPHILS (M) % 45 % (39-77); SMUDGE%M 8 % (0-0)
[2018-10-27] MEDS: SODIUM BICARBONATE (IV ADD) 100 MEQ in DEXTROSE 5%-0.45% NACL 1,000 ML IV ×2 (10:03→20:42)
[2018-10-27] MEDS: VANCOMYCIN HCL 1.5 GM in SOD CHLORIDE 0.9% 250 ML IVPB (10:03)
[2018-10-27 11:54] LABS: AADO2 Arterial 64.5 mmHg (7.0-24.0); Allen Test ACCEPTAB; Arterial Base Excess -2.4 mmol/L (-3.0-3); Arterial COHb 0.3 % (0.0-3.0); Arterial Fraction of Oxyhgb 97.6 % (93.0-99.0); Arterial HCO3 21.3 mmol/L (22.0-26.0); Arterial MetHb 0.1 % (0.0-1.5); Arterial pCO2 32.9 mmhg (35-45); Blood Gas PS 10; MODE VENT - CPAP; Site Left Radial
[2018-10-27] MEDS: HEPARIN 5,000 UNIT/1 ML VIAL SC ×2 (12:01→20:44)
[2018-10-27 12:42] LABS: CREATININE, RANDOM URINE 181 mg/dL (20-320); MICROALBUMIN 3.9 mg/dL; MICROALBUMIN/CREATININE RATIO 22 (<30)
[2018-10-27 14:48] LABS: LACTIC ACID 1.3 mmol/L (0.5-2.0)
[2018-10-27] MEDS: LIDOCAINE 1% (MPF) 5 ML VIAL SC (19:39)
[2018-10-28] MEDS: LORAZEPAM 2 MG INJ IV (01:56)
[2018-10-28 05:46] LABS: WHITE BLOOD COUNT 12.7 10^3/ul (4.8-10.8)
[2018-10-28 05:46] LABS: HEMOGLOBIN 9.9 g/dl (14.0-18.0); MEAN CORPUSCULAR HEMOGLOBIN 24.4 pg (29.0-33.0); MEAN CORPUSCULAR HGB CONC 30.9 g/dl (32.0-37.0); MEAN PLATELET VOLUME 9.4 fl (7.4-10.4); PLATELET COUNT 163 10^3/UL (140-415); POSITIVE DIFF @See below; RED BLOOD COUNT 4.05 10^6/ul (4.70-6.10); RED CELL DISTRIBUTION WIDTH 18.7 % (11.5-14.5)
[2018-10-28 05:55] LABS: ADD MAN DIFF? YES
[2018-10-28] MEDS: PANTOPRAZOLE 40 MG INJ IV ×2 (06:00→20:05)
[2018-10-28] MEDS: PIPER-TAZO 3.375 GM IV (PMX) 100 ML IVPB ×3 (06:00→22:20)
[2018-10-28 06:09] LABS: ANION GAP 5 (5-13); BLOOD UREA NITROGEN 23 mg/dl (7-20); CARBON DIOXIDE 22 mmol/L (21-31); CHLORIDE 112 mmol/L (97-110); CREATININE 0.85 mg/dl (0.61-1.24); GLUCOSE 105 mg/dl (70-220); MAGNESIUM 2.9 mg/dl (1.7-2.5); PHOSPHORUS 2.4 mg/dl (2.5-4.9); POTASSIUM 4.3 mmol/L (3.5-5.1); SODIUM 139 mmol/L (135-144)
[2018-10-28] MEDS: DEXTROSE 5%-0.45% NACL 1,000 ML IV ×2 (06:52→18:00)
[2018-10-28] MEDS: HEPARIN 5,000 UNIT/1 ML VIAL SC ×2 (08:41→20:06)
[2018-10-28 10:49] LABS: ADD UMIC YES; UR ASCORBIC ACID NEGATIVE (NEGATIVE); UR BILIRUBIN (Dip) NEGATIVE (NEGATIVE); UR BLOOD (Dip) NEGATIVE (NEGATIVE); UR CLARITY CLEAR (CLEAR); UR COLOR YELLOW (YELLOW); UR GLUCOSE (Dip) NEGATIVE (NEGATIVE); UR KETONES (Dip) NEGATIVE (NEGATIVE); UR LEUKOCYTE ESTERASE (Dip) NEGATIVE Leu/ul (NEGATIVE); UR NITRITE (Dip) NEGATIVE (NEGATIVE); UR RBC 4 /HPF (0-5); UR SPECIFIC GRAVITY (Dip) 1.024 (1.003-1.030); UR TOTAL PROTEIN (Dip) 1+ mg/dl (NEGATIVE); UR UROBILINOGEN (Dip) NEGATIVE (NEGATIVE); UR WBC 0 /HPF (0-5)
[2018-10-28] MEDS: FUROSEMIDE 20 MG INJ IV ×2 (10:52→17:50)
[2018-10-28] MEDS: VANCOMYCIN HCL 1.25 GM in SOD CHLORIDE 0.9% 250 ML IVPB (10:52)
[2018-10-28 11:11] LABS: ANISOCYTOSIS 1+ (0-0); BAND NEUTROPHILS #M 2.2 10^3/ul (0.0-0.6); BAND NEUTROPHILS % (M) 18 % (0-4); BURR CELLS 1+ (0-0); EOSINOPHILS % (M) 1 % (0-7); GIANT THROMBO% (M) 1 % (0-0); LYMPHOCYTES #M 1.6 10^3/ul (0.8-2.9); LYMPHOCYTES % (M) 13 % (15-51); MICROCYTOSIS 1+ (0-0); MONOCYTE #M 0.2 10^3/ul (0.3-0.9); MONOCYTES % (M) 2 % (0-11); OVALOCYTES 1+ (0-0); PLATELET ESTIMATE NORMAL; POIKILOCYTOSIS 1+ (0-0); SEG NEUT #M 8.7 10^3/ul (1.6-7.5); SEGMENTED NEUTROPHILS (M) % 66 % (39-77); SMUDGE%M 6 % (0-0)
[2018-10-28] MEDS: HYDROmorphONE 1 MG/ML SYG IV (20:05)
[2018-10-28] MEDS: VANCOMYCIN 750 MG (PMX) 250 ML IVPB (23:23)
[2018-10-29] MEDS ORDERED: LORAZEPAM 2 MG INJ IV (00:30)
[2018-10-29] MEDS: PANTOPRAZOLE 40 MG INJ IV ×2 (06:02→17:38)
[2018-10-29] MEDS: PIPER-TAZO 3.375 GM IV (PMX) 100 ML IVPB ×3 (06:02→20:30)
[2018-10-29] MEDS: FUROSEMIDE 20 MG INJ IV ×2 (06:09→17:39)
[2018-10-29] MEDS: HYDROmorphONE 1 MG/ML SYG IV ×4 (06:11→20:31)
[2018-10-29 06:15] LABS: ADD MAN DIFF? NO
[2018-10-29 07:05] LABS: WHITE BLOOD COUNT 7.7 10^3/ul (4.8-10.8)
[2018-10-29 07:05] LABS: ABNORMAL IP MESSAGE 1; BASOPHILS % 0.4 % (0.0-2.0); EOSINOPHILS # 0.1 10^3/ul (0.0-0.5); EOSINOPHILS % 1.8 % (0.0-7.0); HEMATOCRIT 39.9 % (42.0-52.0); HEMOGLOBIN 12.6 g/dl (14.0-18.0); LYMPHOCYTES # 0.7 10^3/ul (0.8-2.9); LYMPHOCYTES % 9.3 % (15.0-51.0); MEAN CORPUSCULAR HEMOGLOBIN 25.2 pg (29.0-33.0); MEAN CORPUSCULAR HGB CONC 31.6 g/dl (32.0-37.0); MEAN CORPUSCULAR VOLUME 79.8 fl (82.0-101.0); MONOCYTE # 0.6 10^3/ul (0.3-0.9); MONOCYTES % 8.2 % (0.0-11.0); NEUTROPHIL # 6.1 10^3/ul (1.6-7.5); NEUTROPHILS % 79.8 % (39.0-77.0); NUCLEATED RED BLOOD CELLS # 0.1 10^3/ul (0.0-0.0); NUCLEATED RED BLOOD CELLS% 0.9 /100WBC (0.0-0.0); PLATELET COUNT 168 10^3/UL (140-415); POSITIVE DIFF @See below
[2018-10-29 07:13] LABS: ANION GAP 7 (5-13); BLOOD UREA NITROGEN 17 mg/dl (7-20); CALCIUM 8.4 mg/dl (8.4-10.2); CARBON DIOXIDE 25 mmol/L (21-31); CHLORIDE 106 mmol/L (97-110); GLUCOSE 79 mg/dl (70-220); MAGNESIUM 2.1 mg/dl (1.7-2.5); PHOSPHORUS 2.8 mg/dl (2.5-4.9); SODIUM 138 mmol/L (135-144)
[2018-10-29] MEDS: HEPARIN 5,000 UNIT/1 ML VIAL SC ×2 (08:37→20:31)
[2018-10-29] MEDS: DEXTROSE 5%-0.45% NACL 1,000 ML IV (10:54)
[2018-10-29] MEDS: VANCOMYCIN 750 MG (PMX) 250 ML IVPB ×2 (10:54→22:56)
[2018-10-29] MEDS: IOHEXOL 300MG/ML 150 ML BTL (18:25)
[2018-10-29 22:34] LABS: VANCOMYCIN,TROUGH 9.7 ug/ml (10.0-20.0)
[2018-10-30] MEDS: HYDROmorphONE 1 MG/ML SYG IV ×6 (00:28→19:36)
[2018-10-30] MEDS: FUROSEMIDE 20 MG INJ IV ×2 (05:00→17:07)
[2018-10-30] MEDS: PIPER-TAZO 3.375 GM IV (PMX) 100 ML IVPB ×3 (05:00→22:24)
[2018-10-30] MEDS: PANTOPRAZOLE 40 MG INJ IV ×2 (05:00→17:07)
[2018-10-30 07:11] LABS: ADD MAN DIFF? NO
[2018-10-30 07:14] LABS: BASOPHILS % 0.6 % (0.0-2.0); EOSINOPHILS # 0.1 10^3/ul (0.0-0.5); EOSINOPHILS % 1.6 % (0.0-7.0); HEMOGLOBIN 12.9 g/dl (14.0-18.0); LYMPHOCYTES # 0.7 10^3/ul (0.8-2.9); LYMPHOCYTES % 10.3 % (15.0-51.0); MEAN CORPUSCULAR HEMOGLOBIN 24.5 pg (29.0-33.0); MEAN CORPUSCULAR HGB CONC 32.3 g/dl (32.0-37.0); MEAN CORPUSCULAR VOLUME 75.9 fl (82.0-101.0); MEAN PLATELET VOLUME 9.3 fl (7.4-10.4); MONOCYTE # 0.9 10^3/ul (0.3-0.9); MONOCYTES % 13.1 % (0.0-11.0); NEUTROPHIL # 5.1 10^3/ul (1.6-7.5); NEUTROPHILS % 71.4 % (39.0-77.0); PLATELET COUNT 210 10^3/UL (140-415); RED BLOOD COUNT 5.27 10^6/ul (4.70-6.10); RED CELL DISTRIBUTION WIDTH 17.5 % (11.5-14.5)
[2018-10-30 07:14] LABS: WHITE BLOOD COUNT 7.1 10^3/ul (4.8-10.8)
[2018-10-30 07:33] LABS: ANION GAP 9 (5-13); BLOOD UREA NITROGEN 15 mg/dl (7-20); CALCIUM 8.5 mg/dl (8.4-10.2); CARBON DIOXIDE 28 mmol/L (21-31); CHLORIDE 100 mmol/L (97-110); CREATININE 0.92 mg/dl (0.61-1.24); GLUCOSE 98 mg/dl (70-220); MAGNESIUM 1.8 mg/dl (1.7-2.5); PHOSPHORUS 4.5 mg/dl (2.5-4.9); POTASSIUM 3.2 mmol/L (3.5-5.1); SODIUM 137 mmol/L (135-144)
[2018-10-30] MEDS: HEPARIN 5,000 UNIT/1 ML VIAL SC ×2 (08:51→21:03)
[2018-10-30] MEDS: POTASSIUM CHLORIDE 50 ML IVPB ×3 (10:58→18:09)
[2018-10-30] MEDS: VANCOMYCIN 1 GM 250 ML IVPB ×2 (12:42→23:43)
[2018-10-30] MEDS: POLYETHYLENE GLYCOL 17 GM PACKET PO ×2 (17:01→21:02)
[2018-10-30] MEDS: DEXTROSE 5%-0.45% NACL 1,000 ML IV (18:10)
[2018-10-30] MEDS ORDERED: POLYETHYLENE GLYCOL 17 GM PACKET PO (21:00)
[2018-10-31] MEDS: HYDROmorphONE 1 MG/ML SYG IV ×3 (01:38→11:53)
[2018-10-31] MEDS: PIPER-TAZO 3.375 GM IV (PMX) 100 ML IVPB ×2 (05:44→13:20)
[2018-10-31] MEDS: PANTOPRAZOLE 40 MG INJ IV (05:44)
[2018-10-31] MEDS: FUROSEMIDE 20 MG INJ IV ×2 (05:44→17:51)
[2018-10-31 07:29] LABS: ADD MAN DIFF? NO
[2018-10-31 07:38] LABS: WHITE BLOOD COUNT 7.5 10^3/ul (4.8-10.8)
[2018-10-31 07:38] LABS: BASOPHILS % 0.4 % (0.0-2.0); EOSINOPHILS # 0.2 10^3/ul (0.0-0.5); EOSINOPHILS % 2.7 % (0.0-7.0); HEMATOCRIT 40.4 % (42.0-52.0); HEMOGLOBIN 12.7 g/dl (14.0-18.0); LYMPHOCYTES # 0.6 10^3/ul (0.8-2.9); MEAN CORPUSCULAR HEMOGLOBIN 23.8 pg (29.0-33.0); MEAN CORPUSCULAR HGB CONC 31.4 g/dl (32.0-37.0); MEAN CORPUSCULAR VOLUME 75.8 fl (82.0-101.0); MEAN PLATELET VOLUME 9.8 fl (7.4-10.4); MONOCYTE # 0.9 10^3/ul (0.3-0.9); MONOCYTES % 12.3 % (0.0-11.0); NEUTROPHIL # 5.6 10^3/ul (1.6-7.5); NEUTROPHILS % 74.1 % (39.0-77.0); PLATELET COUNT 202 10^3/UL (140-415); RED BLOOD COUNT 5.33 10^6/ul (4.70-6.10); RED CELL DISTRIBUTION WIDTH 18.4 % (11.5-14.5)
[2018-10-31 07:57] LABS: ALANINE AMINOTRANSFERASE 7 IU/L (13-69); ALBUMIN 3.2 g/dl (3.3-4.9); ALBUMIN/GLOBULIN RATIO 0.94; ALKALINE PHOSPHATASE 91 IU/L (42-121); ANION GAP 8 (5-13); ASPARTATE AMINO TRANSFERASE 19 IU/L (15-46); BILIRUBIN,INDIRECT 0.5 mg/dl (0-1.1); BILIRUBIN,TOTAL 0.5 mg/dl (0.2-1.3); BLOOD UREA NITROGEN 13 mg/dl (7-20); CALCIUM 8.6 mg/dl (8.4-10.2); CARBON DIOXIDE 29 mmol/L (21-31); CHLORIDE 100 mmol/L (97-110); CREATININE 0.86 mg/dl (0.61-1.24); GLUCOSE 113 mg/dl (70-220); POTASSIUM 3.3 mmol/L (3.5-5.1); SODIUM 137 mmol/L (135-144); TOTAL PROTEIN 6.6 g/dl (6.1-8.1)
[2018-10-31] MEDS: POLYETHYLENE GLYCOL 17 GM PACKET PO ×2 (08:18→20:35)
[2018-10-31] MEDS: HEPARIN 5,000 UNIT/1 ML VIAL SC ×2 (08:19→20:36)
[2018-10-31] MEDS: VANCOMYCIN 1 GM 250 ML IVPB (11:00)
[2018-10-31] MEDS: POTASSIUM CHLORIDE 20 MEQ POWDER FOR ORAL SOLN PO (11:00)
[2018-10-31] MEDS: ACETAMINOPHEN 325 MG TAB PO (12:57)
[2018-10-31] MEDS ORDERED: morphine 2 MG INJ IV (13:30)
[2018-10-31] MEDS ORDERED: HYDROCODONE/APAP (5/325) TAB PO (13:30)
[2018-10-31] MEDS ORDERED: HYDROmorphONE 0.5 MG/0.5 ML SYG IV (13:30)
[2018-10-31 14:15] LABS: PHOSPHORUS 3.5 mg/dl (2.5-4.9)
[2018-10-31] MEDS: HYDROCODONE/APAP (5/325) TAB PO ×2 (16:09→23:27)
[2018-11-01] MEDS: HYDROmorphONE 0.5 MG/0.5 ML SYG IV (02:22)
[2018-11-01 05:33] LABS: ADD MAN DIFF? NO
[2018-11-01 05:35] LABS: BASOPHILS % 0.5 % (0.0-2.0); EOSINOPHILS # 0.3 10^3/ul (0.0-0.5); EOSINOPHILS % 3.6 % (0.0-7.0); HEMATOCRIT 41.4 % (42.0-52.0); HEMOGLOBIN 13.3 g/dl (14.0-18.0); LYMPHOCYTES % 12.5 % (15.0-51.0); MEAN CORPUSCULAR HEMOGLOBIN 24.5 pg (29.0-33.0); MEAN CORPUSCULAR HGB CONC 32.1 g/dl (32.0-37.0); MEAN CORPUSCULAR VOLUME 76.2 fl (82.0-101.0); MEAN PLATELET VOLUME 11.2 fl (7.4-10.4); MONOCYTE # 0.7 10^3/ul (0.3-0.9); MONOCYTES % 9.5 % (0.0-11.0); NEUTROPHIL # 5.5 10^3/ul (1.6-7.5); NEUTROPHILS % 70.9 % (39.0-77.0); PLATELET COUNT 225 10^3/UL (140-415); POSITIVE DIFF @See below; RED BLOOD COUNT 5.43 10^6/ul (4.70-6.10); RED CELL DISTRIBUTION WIDTH 18.6 % (11.5-14.5)
[2018-11-01 05:35] LABS: WHITE BLOOD COUNT 7.8 10^3/ul (4.8-10.8)
[2018-11-01 06:03] LABS: ALBUMIN 3.6 g/dl (3.3-4.9); ALKALINE PHOSPHATASE 124 IU/L (42-121); ANION GAP 9 (5-13); ASPARTATE AMINO TRANSFERASE 23 IU/L (15-46); BILIRUBIN,INDIRECT 0.6 mg/dl (0-1.1); BILIRUBIN,TOTAL 0.6 mg/dl (0.2-1.3); BLOOD UREA NITROGEN 12 mg/dl (7-20); CALCIUM 9.2 mg/dl (8.4-10.2); CARBON DIOXIDE 30 mmol/L (21-31); CHLORIDE 99 mmol/L (97-110); CREATININE 0.87 mg/dl (0.61-1.24); GLUCOSE 109 mg/dl (70-220); POTASSIUM 3.4 mmol/L (3.5-5.1); SODIUM 138 mmol/L (135-144); TOTAL PROTEIN 7.2 g/dl (6.1-8.1)
[2018-11-01 06:09] LABS: MAGNESIUM 2.1 mg/dl (1.7-2.5)
[2018-11-01 06:09] LABS: PHOSPHORUS 3.4 mg/dl (2.5-4.9)
[2018-11-01] MEDS: FUROSEMIDE 20 MG INJ IV (06:09)
[2018-11-01] MEDS: HYDROCODONE/APAP (5/325) TAB PO ×3 (06:09→20:12)
[2018-11-01 06:20] LABS: ALANINE AMINOTRANSFERASE < 6 IU/L (13-69)
[2018-11-01 07:42] LABS: ADD MAN DIFF? NO
[2018-11-01 07:50] LABS: BASOPHILS % 0.6 % (0.0-2.0); EOSINOPHILS # 0.3 10^3/ul (0.0-0.5); EOSINOPHILS % 3.5 % (0.0-7.0); HEMATOCRIT 39.5 % (42.0-52.0); HEMOGLOBIN 12.4 g/dl (14.0-18.0); LYMPHOCYTES # 0.8 10^3/ul (0.8-2.9); LYMPHOCYTES % 10.7 % (15.0-51.0); MEAN CORPUSCULAR HEMOGLOBIN 23.9 pg (29.0-33.0); MEAN CORPUSCULAR HGB CONC 31.4 g/dl (32.0-37.0); MEAN CORPUSCULAR VOLUME 76.3 fl (82.0-101.0); MEAN PLATELET VOLUME 9.5 fl (7.4-10.4); MONOCYTE # 0.8 10^3/ul (0.3-0.9); MONOCYTES % 10.7 % (0.0-11.0); NEUTROPHIL # 5.1 10^3/ul (1.6-7.5); NEUTROPHILS % 71.8 % (39.0-77.0); PLATELET COUNT 273 10^3/UL (140-415); RED BLOOD COUNT 5.18 10^6/ul (4.70-6.10); RED CELL DISTRIBUTION WIDTH 18.1 % (11.5-14.5)
[2018-11-01 07:50] LABS: WHITE BLOOD COUNT 7.1 10^3/ul (4.8-10.8)
[2018-11-01 08:07] LABS: ANION GAP 10 (5-13); BLOOD UREA NITROGEN 12 mg/dl (7-20); CALCIUM 8.9 mg/dl (8.4-10.2); CARBON DIOXIDE 30 mmol/L (21-31); CHLORIDE 98 mmol/L (97-110); CREATININE 0.91 mg/dl (0.61-1.24); GLUCOSE 98 mg/dl (70-220); POTASSIUM 3.2 mmol/L (3.5-5.1); SODIUM 138 mmol/L (135-144)
[2018-11-01] MEDS: POTASSIUM CHLORIDE (SR) 20 MEQ TAB PO (09:03)
[2018-11-01] MEDS: HEPARIN 5,000 UNIT/1 ML VIAL SC ×2 (09:04→20:13)
[2018-11-01] MEDS: POLYETHYLENE GLYCOL 17 GM PACKET PO ×2 (09:04→20:12)
[2018-11-01] MEDS ORDERED: FUROSEMIDE 20 MG TAB (09:06)
[2018-11-01] MEDS: NACL 0.9% 3 ML SYG IV (09:13)
[2018-11-02] MEDS ORDERED: DIPHENHYDRAMINE 50 MG INJ IV (00:30)
[2018-11-02 05:48] LABS: ADD MAN DIFF? NO
[2018-11-02 05:51] LABS: WHITE BLOOD COUNT 9.2 10^3/ul (4.8-10.8)
[2018-11-02 05:51] LABS: BASOPHIL # 0.1 10^3/ul (0.0-0.1); BASOPHILS % 0.9 % (0.0-2.0); EOSINOPHILS # 0.2 10^3/ul (0.0-0.5); EOSINOPHILS % 2.6 % (0.0-7.0); HEMATOCRIT 36.5 % (42.0-52.0); HEMOGLOBIN 11.4 g/dl (14.0-18.0); LYMPHOCYTES # 1.1 10^3/ul (0.8-2.9); LYMPHOCYTES % 12.4 % (15.0-51.0); MEAN CORPUSCULAR HEMOGLOBIN 24.3 pg (29.0-33.0); MEAN CORPUSCULAR HGB CONC 31.2 g/dl (32.0-37.0); MEAN CORPUSCULAR VOLUME 77.7 fl (82.0-101.0); MEAN PLATELET VOLUME 9.8 fl (7.4-10.4); MONOCYTES % 10.3 % (0.0-11.0); NEUTROPHIL # 6.6 10^3/ul (1.6-7.5); NEUTROPHILS % 71.4 % (39.0-77.0); PLATELET COUNT 303 10^3/UL (140-415); RED CELL DISTRIBUTION WIDTH 17.9 % (11.5-14.5)
[2018-11-02 06:07] LABS: ALBUMIN 3.3 g/dl (3.3-4.9); ALKALINE PHOSPHATASE 124 IU/L (42-121); ANION GAP 9 (5-13); ASPARTATE AMINO TRANSFERASE 23 IU/L (15-46); BILIRUBIN,INDIRECT 0.4 mg/dl (0-1.1); BILIRUBIN,TOTAL 0.4 mg/dl (0.2-1.3); BLOOD UREA NITROGEN 16 mg/dl (7-20); CALCIUM 9.1 mg/dl (8.4-10.2); CARBON DIOXIDE 28 mmol/L (21-31); CHLORIDE 103 mmol/L (97-110); CREATININE 0.92 mg/dl (0.61-1.24); GLUCOSE 93 mg/dl (70-220); POTASSIUM 3.5 mmol/L (3.5-5.1); SODIUM 140 mmol/L (135-144); TOTAL PROTEIN 6.6 g/dl (6.1-8.1)
[2018-11-02 06:15] LABS: ALANINE AMINOTRANSFERASE < 6 IU/L (13-69)
[2018-11-02 07:12] LABS: MAGNESIUM 2.4 mg/dl (1.7-2.5)
[2018-11-02 07:12] LABS: PHOSPHORUS 3.8 mg/dl (2.5-4.9)
[2018-11-02] MEDS: FUROSEMIDE 20 MG TAB PO (08:50)
[2018-11-02] MEDS: POLYETHYLENE GLYCOL 17 GM PACKET PO (08:50)
[2018-11-02] MEDS: HEPARIN 5,000 UNIT/1 ML VIAL SC (08:52)
[2018-11-02] MEDS: HYDROCODONE/APAP (5/325) TAB PO ×2 (10:40→15:22)
[2018-11-02] MEDS: ACETAMINOPHEN 500 MG TAB PO (14:09)
== END 2018-11-02 16:30 | disposition home health service (06) | DRG 853 ==
LOC: 5EC 11-01 21:31 → PP2 10-28 17:27 → E/R 05:51 → PP2 10-28 22:06 → REC 10:48 → ICU 19:30
PROC: 0DU707Z Supplement Stomach, Pylorus with Autologous Tissue Substitute, Open Approach (ICD-10-PCS; principal; 2018-10-25 15:30)
PROC: 0DN80ZZ Release Small Intestine, Open Approach (ICD-10-PCS; 2018-10-25 15:30)
PROC: 0DB60ZX Excision of Stomach, Open Approach, Diagnostic (ICD-10-PCS; 2018-10-25 15:30)
PROC: 0WQF0ZZ Repair Abdominal Wall, Open Approach (ICD-10-PCS; 2018-10-25 15:30)
PROC: 0DJ04ZZ Inspection of Upper Intestinal Tract, Percutaneous Endoscopic Approach (ICD-10-PCS; 2018-10-25 15:30)
PROC: 30233N1 Transfusion of Nonautologous Red Blood Cells into Peripheral Vein, Percutaneous Approach (ICD-10-PCS; 2018-10-25 16:32)
PROC: 5A1945Z Respiratory Ventilation, 24-96 Consecutive Hours (ICD-10-PCS; 2018-10-25 16:32)
DX: A41.9 Sepsis, unspecified organism (principal); R65.21 Severe sepsis with septic shock; K25.5 Chronic or unspecified gastric ulcer with perforation; G92 Toxic encephalopathy; J96.00 Acute respiratory failure, unspecified whether with hypoxia or hypercapnia; K65.9 Peritonitis, unspecified; N17.9 Acute kidney failure, unspecified; E87.2 Acidosis; D62 Acute posthemorrhagic anemia; J90 Pleural effusion, not elsewhere classified; E87.5 Hyperkalemia; F03.90 Unspecified dementia, unspecified severity, without behavioral disturbance, psychotic disturbance, mood disturbance, and anxiety; K66.0 Peritoneal adhesions (postprocedural) (postinfection); K43.2 Incisional hernia without obstruction or gangrene; I70.0 Atherosclerosis of aorta; I25.10 Atherosclerotic heart disease of native coronary artery without angina pectoris; F41.9 Anxiety disorder, unspecified; E87.6 Hypokalemia; Z53.31 Laparoscopic surgical procedure converted to open procedure
CPT/HCPCS: 36430; 36600; 71045; 74176; 74240; 80048; 80053; 80061; 80202; 80307; 81001; 81003; 82043; 82150; 82550; 82553; 82803; 83036; 83605; 83690; 83735; 84100; 84155; 84300; 84436; 84443; 84479; 84484; 85025; 85610; 85730; 86850; 86900; 86901; 86920; 87040-91; 87070; 87081; 87086; 88305; 88312; 92610; 93005; 93306; 94002; 94003; 94770; 97116; 97161; 97167; 97535; 99217; 99291-25; G0378

== ENCOUNTER 2018-11-03 19:40 | Emergency (ER) | payer OTHER ==
[2018-11-03] MEDS ORDERED: CEFTRIAXONE 1 GM INJ IM (21:00)
== END 2018-11-03 20:48 | disposition home or self-care (01) ==
LOC: E/R 19:40
DX: T81.40XA Infection following a procedure, unspecified, initial encounter (principal); Y82.8 Other medical devices associated with adverse incidents
CPT/HCPCS: 99283; J0696

== ENCOUNTER 2018-11-07 03:30 | Emergency (ER) | payer OTHER ==
[2018-11-07] MEDS: ONDANSETRON 4 MG INJ IV ×2 (04:03→06:52)
[2018-11-07] MEDS: SOD CHLORIDE 0.9% 500 ML IV (04:03)
[2018-11-07] MEDS: morphine 4 MG/ML VIAL IV (04:04)
[2018-11-07 04:22] LABS: ADD MAN DIFF? NO
[2018-11-07 04:23] LABS: BASOPHIL # 0.1 10^3/ul (0.0-0.1); BASOPHILS % 1.2 % (0.0-2.0); EOSINOPHILS # 0.2 10^3/ul (0.0-0.5); EOSINOPHILS % 2.7 % (0.0-7.0); HEMATOCRIT 37.3 % (42.0-52.0); HEMOGLOBIN 11.1 g/dl (14.0-18.0); LYMPHOCYTES # 1.6 10^3/ul (0.8-2.9); MEAN CORPUSCULAR HEMOGLOBIN 23.8 pg (29.0-33.0); MEAN CORPUSCULAR HGB CONC 29.8 g/dl (32.0-37.0); MEAN CORPUSCULAR VOLUME 79.9 fl (82.0-101.0); MEAN PLATELET VOLUME 8.8 fl (7.4-10.4); MONOCYTE # 0.9 10^3/ul (0.3-0.9); MONOCYTES % 10.5 % (0.0-11.0); NEUTROPHIL # 5.7 10^3/ul (1.6-7.5); NEUTROPHILS % 65.6 % (39.0-77.0); PLATELET COUNT 730 10^3/UL (140-415); RED BLOOD COUNT 4.67 10^6/ul (4.70-6.10); RED CELL DISTRIBUTION WIDTH 18.5 % (11.5-14.5)
[2018-11-07 04:23] LABS: WHITE BLOOD COUNT 8.6 10^3/ul (4.8-10.8)
[2018-11-07 04:41] LABS: ALBUMIN 4.1 g/dl (3.3-4.9); ALBUMIN/GLOBULIN RATIO 0.95; ALKALINE PHOSPHATASE 132 IU/L (42-121); ANION GAP 11 (5-13); ASPARTATE AMINO TRANSFERASE 26 IU/L (15-46); BILIRUBIN,INDIRECT 0.3 mg/dl (0-1.1); BILIRUBIN,TOTAL 0.3 mg/dl (0.2-1.3); BLOOD UREA NITROGEN 28 mg/dl (7-20); CALCIUM 9.9 mg/dl (8.4-10.2); CARBON DIOXIDE 27 mmol/L (21-31); CHLORIDE 107 mmol/L (97-110); CREATININE 1.03 mg/dl (0.61-1.24); GLUCOSE 108 mg/dl (70-220); LIPASE 317 U/L (23-300); POTASSIUM 4.3 mmol/L (3.5-5.1); SODIUM 145 mmol/L (135-144); TOTAL PROTEIN 8.4 g/dl (6.1-8.1)
[2018-11-07 04:48] LABS: ALANINE AMINOTRANSFERASE < 6 IU/L (13-69)
[2018-11-07] MEDS: HYDROmorphONE 1 MG/ML SYG IV (05:01)
[2018-11-07] MEDS: LIDOCAINE/MYLANTA 40 ML BTL PO (06:33)
== END 2018-11-07 07:43 | disposition home or self-care (01) ==
LOC: E/R 03:30
DX: G89.18 Other acute postprocedural pain (principal); R10.84 Generalized abdominal pain; R11.0 Nausea
CPT/HCPCS: 36415; 74176; 80053; 83690; 85025; 96374; 96375; 96376; 99285-25

== ENCOUNTER 2018-11-07 14:57 | Emergency (ER) | payer OTHER ==
[2018-11-07] MEDS: ONDANSETRON (ODT) 4 MG TAB ODT (17:13)
== END 2018-11-07 17:16 | disposition home or self-care (01) ==
LOC: E/R 14:57
DX: R10.9 Unspecified abdominal pain (principal); R11.0 Nausea
CPT/HCPCS: 99283; Z7502

== ENCOUNTER 2018-11-07 18:22 | Emergency (ER) | payer SELFPAY, OTHER | END 2018-11-07 22:36 | disposition left against medical advice (07) | LOC: E/R 18:22 | DX: Z53.21 Procedure and treatment not carried out due to patient leaving prior to being seen by health care provider (principal) ==

== ENCOUNTER 2018-11-08 03:00 | Emergency (ER) | payer OTHER | END 2018-11-08 03:31 | disposition home or self-care (01) | LOC: E/R 03:00 | DX: R10.9 Unspecified abdominal pain (principal); R40.2142 Coma scale, eyes open, spontaneous, at arrival to emergency department; R40.2252 Coma scale, best verbal response, oriented, at arrival to emergency department | CPT/HCPCS: 99282; Z7502 ==

== ENCOUNTER 2018-11-08 05:22 | Emergency (ER) | payer OTHER | END 2018-11-08 06:30 | disposition home or self-care (01) | LOC: E/R 05:22 | DX: R10.84 Generalized abdominal pain (principal); R40.2142 Coma scale, eyes open, spontaneous, at arrival to emergency department; R40.2362 Coma scale, best motor response, obeys commands, at arrival to emergency department; R40.2252 Coma scale, best verbal response, oriented, at arrival to emergency department | CPT/HCPCS: 99282; Z7502 ==

== ENCOUNTER 2018-11-08 11:25 | Emergency (ER) | payer OTHER | END 2018-11-08 12:06 | disposition home or self-care (01) | LOC: E/R 11:25 | DX: R10.84 Generalized abdominal pain (principal) | CPT/HCPCS: 99283; Z7502 ==

== ENCOUNTER 2018-12-21 07:02 | Emergency (ER) | payer OTHER ==
[2018-12-21 07:31] LABS: ADD MAN DIFF? NO
[2018-12-21 07:37] LABS: BASOPHIL # 0.1 10^3/ul (0.0-0.1); BASOPHILS % 0.6 % (0.0-2.0); EOSINOPHILS # 0.2 10^3/ul (0.0-0.5); HEMATOCRIT 35.2 % (42.0-52.0); HEMOGLOBIN 10.5 g/dl (14.0-18.0); LYMPHOCYTES # 1.2 10^3/ul (0.8-2.9); LYMPHOCYTES % 12.1 % (15.0-51.0); MEAN CORPUSCULAR HEMOGLOBIN 25.3 pg (29.0-33.0); MEAN CORPUSCULAR HGB CONC 29.8 g/dl (32.0-37.0); MEAN CORPUSCULAR VOLUME 84.8 fl (82.0-101.0); MEAN PLATELET VOLUME 9.1 fl (7.4-10.4); MONOCYTE # 0.7 10^3/ul (0.3-0.9); MONOCYTES % 7.1 % (0.0-11.0); NEUTROPHIL # 7.7 10^3/ul (1.6-7.5); NEUTROPHILS % 77.7 % (39.0-77.0); PLATELET COUNT 305 10^3/UL (140-415); RED BLOOD COUNT 4.15 10^6/ul (4.70-6.10); RED CELL DISTRIBUTION WIDTH 15.9 % (11.5-14.5)
[2018-12-21 07:37] LABS: WHITE BLOOD COUNT 9.9 10^3/ul (4.8-10.8)
[2018-12-21 07:56] LABS: ALANINE AMINOTRANSFERASE 8 IU/L (13-69); ALBUMIN 4.4 g/dl (3.3-4.9); ALBUMIN/GLOBULIN RATIO 1.29; ALKALINE PHOSPHATASE 48 IU/L (42-121); ANION GAP 9 (5-13); ASPARTATE AMINO TRANSFERASE 27 IU/L (15-46); BILIRUBIN,INDIRECT 0.5 mg/dl (0-1.1); BILIRUBIN,TOTAL 0.5 mg/dl (0.2-1.3); BLOOD UREA NITROGEN 18 mg/dl (7-20); CALCIUM 9.9 mg/dl (8.4-10.2); CARBON DIOXIDE 23 mmol/L (21-31); CHLORIDE 106 mmol/L (97-110); CREATININE 1.01 mg/dl (0.61-1.24); GLUCOSE 116 mg/dl (70-220); LIPASE 92 U/L (23-300); SODIUM 138 mmol/L (135-144); TOTAL PROTEIN 7.8 g/dl (6.1-8.1)
== END 2018-12-21 08:22 | disposition home or self-care (01) ==
LOC: E/R 07:02
DX: R10.9 Unspecified abdominal pain (principal); R40.2142 Coma scale, eyes open, spontaneous, at arrival to emergency department; R40.2252 Coma scale, best verbal response, oriented, at arrival to emergency department; R40.2362 Coma scale, best motor response, obeys commands, at arrival to emergency department
CPT/HCPCS: 36415; 74176; 80053; 83690; 85025; 99284-25

== ENCOUNTER 2018-12-21 11:31 | Emergency (ER) | payer OTHER | END 2018-12-21 13:25 | disposition home or self-care (01) | LOC: E/R 11:31 | DX: R10.9 Unspecified abdominal pain (principal); Z98.890 Other specified postprocedural states | CPT/HCPCS: 99282; Z7502 ==

== ENCOUNTER 2018-12-30 13:04 | Emergency (ER) | payer OTHER ==
[2018-12-30] MEDS: ACETAMINOPHEN 325 MG TAB PO (15:46)
== END 2018-12-30 17:00 | disposition home or self-care (01) ==
LOC: E/R 17:00
DX: R42 Dizziness and giddiness (principal)
CPT/HCPCS: 70450; 82962; 93005; 99284-25

== ENCOUNTER 2019-01-13 12:16 | Inpatient (IN) | payer OTHER ==
[2019-01-13 14:04] LABS: ADD MAN DIFF? NO
[2019-01-13 14:08] LABS: BASOPHIL # 0.1 10^3/ul (0.0-0.1); BASOPHILS % 1.1 % (0.0-2.0); EOSINOPHILS # 0.4 10^3/ul (0.0-0.5); EOSINOPHILS % 4.6 % (0.0-7.0); HEMATOCRIT 27.5 % (42.0-52.0); HEMOGLOBIN 8.1 g/dl (14.0-18.0); LYMPHOCYTES # 1.3 10^3/ul (0.8-2.9); LYMPHOCYTES % 13.8 % (15.0-51.0); MEAN CORPUSCULAR HEMOGLOBIN 25.8 pg (29.0-33.0); MEAN CORPUSCULAR HGB CONC 29.5 g/dl (32.0-37.0); MEAN CORPUSCULAR VOLUME 87.6 fl (82.0-101.0); MEAN PLATELET VOLUME 8.6 fl (7.4-10.4); MONOCYTE # 0.7 10^3/ul (0.3-0.9); MONOCYTES % 7.8 % (0.0-11.0); NEUTROPHIL # 6.6 10^3/ul (1.6-7.5); NEUTROPHILS % 72.4 % (39.0-77.0); PLATELET COUNT 361 10^3/UL (140-415); RED BLOOD COUNT 3.14 10^6/ul (4.70-6.10); RED CELL DISTRIBUTION WIDTH 16.9 % (11.5-14.5)
[2019-01-13 14:08] LABS: WHITE BLOOD COUNT 9.1 10^3/ul (4.8-10.8)
[2019-01-13] MEDS: FAMOTIDINE 20 MG TAB PO (14:11)
[2019-01-13] MEDS: AL HYDROX/MG HYDROX/SIMETH 30 ML CUP PO (14:11)
[2019-01-13 14:25] LABS: ALANINE AMINOTRANSFERASE 17 IU/L (13-69); ALBUMIN 3.6 g/dl (3.3-4.9); ALKALINE PHOSPHATASE 55 IU/L (42-121); ANION GAP 7 (5-13); ASPARTATE AMINO TRANSFERASE 21 IU/L (15-46); BILIRUBIN,INDIRECT 0.3 mg/dl (0-1.1); BILIRUBIN,TOTAL 0.3 mg/dl (0.2-1.3); BLOOD UREA NITROGEN 11 mg/dl (7-20); CALCIUM 9.2 mg/dl (8.4-10.2); CARBON DIOXIDE 24 mmol/L (21-31); CHLORIDE 108 mmol/L (97-110); CREATININE 0.92 mg/dl (0.61-1.24); GLUCOSE 99 mg/dl (70-220); POTASSIUM 4.3 mmol/L (3.5-5.1); SODIUM 139 mmol/L (135-144); TOTAL PROTEIN 6.6 g/dl (6.1-8.1)
[2019-01-13 14:34] LABS: LIPASE 2218 U/L (23-300)
[2019-01-13] MEDS: morphine 4 MG/ML VIAL IV (15:06)
[2019-01-13] MEDS ORDERED: NACL 0.9% 3 ML SYG IV (15:30)
[2019-01-13] MEDS ORDERED: ONDANSETRON 4 MG INJ IV (15:30)
[2019-01-13] MEDS: ONDANSETRON 4 MG INJ IV (16:17)
[2019-01-13] MEDS: SOD CHLORIDE 0.9% 1,000 ML IV ×3 (16:18→17:53)
[2019-01-13] MEDS: morphine 2 MG INJ IV ×4 (16:18→22:07)
[2019-01-13 16:24] LABS: CHOL/HDL RATIO 3.7 RATIO; HDL CHOLESTEROL 53 mg/dl (31-75); LDL CHOLESTEROL,CALCULATED 112 mg/dl; TRIGLYCERIDES 168 mg/dl (0-149)
[2019-01-13 16:24] LABS: CHOLESTEROL 199 mg/dl (100-200)
[2019-01-13 16:35] LABS: ADD UMIC NO; UR ASCORBIC ACID NEGATIVE (NEGATIVE); UR BILIRUBIN (Dip) NEGATIVE (NEGATIVE); UR BLOOD (Dip) NEGATIVE (NEGATIVE); UR CLARITY CLEAR (CLEAR); UR COLOR STRAW (YELLOW); UR GLUCOSE (Dip) NEGATIVE (NEGATIVE); UR KETONES (Dip) NEGATIVE (NEGATIVE); UR LEUKOCYTE ESTERASE (Dip) NEGATIVE Leu/ul (NEGATIVE); UR NITRITE (Dip) NEGATIVE (NEGATIVE); UR SPECIFIC GRAVITY (Dip) 1.018 (1.003-1.030); UR TOTAL PROTEIN (Dip) NEGATIVE (NEGATIVE); UR UROBILINOGEN (Dip) NEGATIVE (NEGATIVE)
[2019-01-13] MEDS: PANTOPRAZOLE 40 MG INJ IV (21:20)
[2019-01-14] MEDS: KETOROLAC 30 MG INJ IV (00:07)
[2019-01-14] MEDS: SOD CHLORIDE 0.9% 1,000 ML IV (03:46)
[2019-01-14 05:53] LABS: ADD MAN DIFF? NO
[2019-01-14 06:05] LABS: BASOPHIL # 0.1 10^3/ul (0.0-0.1); BASOPHILS % 1.5 % (0.0-2.0); EOSINOPHILS # 0.6 10^3/ul (0.0-0.5); EOSINOPHILS % 9.4 % (0.0-7.0); HEMATOCRIT 25.3 % (42.0-52.0); HEMOGLOBIN 7.5 g/dl (14.0-18.0); LYMPHOCYTES # 1.4 10^3/ul (0.8-2.9); MEAN CORPUSCULAR HEMOGLOBIN 26.4 pg (29.0-33.0); MEAN CORPUSCULAR HGB CONC 29.6 g/dl (32.0-37.0); MEAN CORPUSCULAR VOLUME 89.1 fl (82.0-101.0); MEAN PLATELET VOLUME 9.2 fl (7.4-10.4); MONOCYTE # 0.6 10^3/ul (0.3-0.9); MONOCYTES % 9.9 % (0.0-11.0); NEUTROPHIL # 3.3 10^3/ul (1.6-7.5); NEUTROPHILS % 55.9 % (39.0-77.0); PLATELET COUNT 338 10^3/UL (140-415); RED BLOOD COUNT 2.84 10^6/ul (4.70-6.10); RED CELL DISTRIBUTION WIDTH 16.9 % (11.5-14.5)
[2019-01-14 06:05] LABS: WHITE BLOOD COUNT 5.9 10^3/ul (4.8-10.8)
[2019-01-14 06:18] LABS: HEMOGLOBIN A1C 5.5 % (0-5.9)
[2019-01-14 06:48] LABS: ALANINE AMINOTRANSFERASE 13 IU/L (13-69); ALBUMIN 3.2 g/dl (3.3-4.9); ALBUMIN/GLOBULIN RATIO 1.06; ALKALINE PHOSPHATASE 51 IU/L (42-121); ANION GAP 4 (5-13); ASPARTATE AMINO TRANSFERASE 19 IU/L (15-46); BILIRUBIN,INDIRECT 0.3 mg/dl (0-1.1); BILIRUBIN,TOTAL 0.3 mg/dl (0.2-1.3); BLOOD UREA NITROGEN 9 mg/dl (7-20); CALCIUM 8.8 mg/dl (8.4-10.2); CARBON DIOXIDE 26 mmol/L (21-31); CHLORIDE 109 mmol/L (97-110); CREATININE 0.87 mg/dl (0.61-1.24); GLUCOSE 84 mg/dl (70-220); MAGNESIUM 2.1 mg/dl (1.7-2.5); POTASSIUM 4.3 mmol/L (3.5-5.1); SODIUM 139 mmol/L (135-144); TOTAL PROTEIN 6.2 g/dl (6.1-8.1)
[2019-01-14 07:41] LABS: LIPASE 134 U/L (23-300)
[2019-01-14] MEDS: ACETAMINOPHEN 325 MG TAB PO (10:09)
[2019-01-14] MEDS: PANTOPRAZOLE (EC) 40 MG TAB PO ×2 (10:25→17:23)
[2019-01-14] MEDS: SUCRALFATE (100 MG/ML) 10ML CUP PO ×3 (13:19→20:19)
[2019-01-14] MEDS: HYDROCODONE/APAP (5/325) TAB PO ×3 (14:20→23:53)
[2019-01-14] MEDS: ZOLPIDEM 5 MG TAB PO ×2 (20:18→21:31)
[2019-01-14] MEDS ORDERED: ZOLPIDEM 5 MG TAB PO (20:30)
[2019-01-15] MEDS: PANTOPRAZOLE (EC) 40 MG TAB PO ×2 (05:43→17:29)
[2019-01-15] MEDS: HYDROCODONE/APAP (5/325) TAB PO ×5 (05:43→23:00)
[2019-01-15] MEDS: SUCRALFATE (100 MG/ML) 10ML CUP PO ×4 (08:48→21:53)
[2019-01-15 11:20] LABS: ADD MAN DIFF? NO
[2019-01-15 11:23] LABS: BASOPHIL # 0.1 10^3/ul (0.0-0.1); BASOPHILS % 1.2 % (0.0-2.0); EOSINOPHILS # 0.5 10^3/ul (0.0-0.5); EOSINOPHILS % 8.9 % (0.0-7.0); HEMATOCRIT 26.4 % (42.0-52.0); HEMOGLOBIN 7.8 g/dl (14.0-18.0); LYMPHOCYTES # 1.2 10^3/ul (0.8-2.9); LYMPHOCYTES % 19.5 % (15.0-51.0); MEAN CORPUSCULAR HEMOGLOBIN 26.2 pg (29.0-33.0); MEAN CORPUSCULAR HGB CONC 29.5 g/dl (32.0-37.0); MEAN CORPUSCULAR VOLUME 88.6 fl (82.0-101.0); MEAN PLATELET VOLUME 9.2 fl (7.4-10.4); MONOCYTE # 0.7 10^3/ul (0.3-0.9); MONOCYTES % 10.9 % (0.0-11.0); NEUTROPHIL # 3.5 10^3/ul (1.6-7.5); PLATELET COUNT 399 10^3/UL (140-415); RED BLOOD COUNT 2.98 10^6/ul (4.70-6.10); RED CELL DISTRIBUTION WIDTH 16.8 % (11.5-14.5)
[2019-01-15 11:47] LABS: ANION GAP 7 (5-13); BLOOD UREA NITROGEN 18 mg/dl (7-20); CALCIUM 9.7 mg/dl (8.4-10.2); CARBON DIOXIDE 27 mmol/L (21-31); CHLORIDE 103 mmol/L (97-110); CREATININE 1.09 mg/dl (0.61-1.24); GLUCOSE 96 mg/dl (70-220); MAGNESIUM 1.9 mg/dl (1.7-2.5); SODIUM 137 mmol/L (135-144)
[2019-01-15] MEDS: ZOLPIDEM 5 MG TAB PO (21:53)
[2019-01-16] MEDS: HYDROCODONE/APAP (5/325) TAB PO ×3 (04:26→14:03)
[2019-01-16] MEDS: PANTOPRAZOLE (EC) 40 MG TAB PO (06:39)
[2019-01-16] MEDS: SUCRALFATE (100 MG/ML) 10ML CUP PO ×3 (09:43→17:00)
[2019-01-16 16:06] LABS: HEPATITIS B SURFACE ANTIGEN NEGATIVE (NEGATIVE)
[2019-01-16 16:23] LABS: HEPATITIS C VIRAL ANTIBODY NEGATIVE (NEGATIVE)
[2019-01-16 16:24] LABS: HEPATITIS B SURFACE ANTIBODY NEGATIVE (NEGATIVE)
== END 2019-01-16 17:20 | disposition home or self-care (01) | DRG 440 ==
LOC: E/R 12:16 → MS1 15:14
PROVIDERS: Internal Medicine
DX: K85.90 Acute pancreatitis without necrosis or infection, unspecified (principal); M19.012 Primary osteoarthritis, left shoulder; M19.011 Primary osteoarthritis, right shoulder; F03.90 Unspecified dementia, unspecified severity, without behavioral disturbance, psychotic disturbance, mood disturbance, and anxiety; D64.9 Anemia, unspecified; Z87.11 Personal history of peptic ulcer disease; Z91.14 Patient's other noncompliance with medication regimen
CPT/HCPCS: 73030-50; 74176; 76700; 80048; 80053; 80061; 81003; 82787; 83036; 83690; 83735; 84100; 84443; 85025; 86706; 86803; 87340; 99285-25

== ENCOUNTER 2019-01-17 08:53 | Emergency (ER) | payer OTHER ==
[2019-01-17 09:40] LABS: ADD MAN DIFF? NO
[2019-01-17 09:43] LABS: WHITE BLOOD COUNT 4.9 10^3/ul (4.8-10.8)
[2019-01-17 09:43] LABS: BASOPHIL # 0.1 10^3/ul (0.0-0.1); BASOPHILS % 1.4 % (0.0-2.0); EOSINOPHILS # 0.4 10^3/ul (0.0-0.5); EOSINOPHILS % 8.8 % (0.0-7.0); HEMOGLOBIN 8.1 g/dl (14.0-18.0); LYMPHOCYTES # 0.7 10^3/ul (0.8-2.9); MEAN CORPUSCULAR HEMOGLOBIN 25.8 pg (29.0-33.0); MEAN PLATELET VOLUME 8.7 fl (7.4-10.4); MONOCYTE # 0.5 10^3/ul (0.3-0.9); MONOCYTES % 9.9 % (0.0-11.0); NEUTROPHIL # 3.1 10^3/ul (1.6-7.5); NEUTROPHILS % 64.5 % (39.0-77.0); PLATELET COUNT 346 10^3/UL (140-415); RED BLOOD COUNT 3.14 10^6/ul (4.70-6.10); RED CELL DISTRIBUTION WIDTH 16.5 % (11.5-14.5)
[2019-01-17 10:02] LABS: ALANINE AMINOTRANSFERASE 15 IU/L (13-69); ALBUMIN/GLOBULIN RATIO 1.11; ALKALINE PHOSPHATASE 57 IU/L (42-121); ANION GAP 7 (5-13); ASPARTATE AMINO TRANSFERASE 27 IU/L (15-46); BILIRUBIN,INDIRECT 0.6 mg/dl (0-1.1); BILIRUBIN,TOTAL 0.6 mg/dl (0.2-1.3); BLOOD UREA NITROGEN 23 mg/dl (7-20); CALCIUM 9.5 mg/dl (8.4-10.2); CARBON DIOXIDE 28 mmol/L (21-31); CHLORIDE 105 mmol/L (97-110); CREATININE 0.99 mg/dl (0.61-1.24); GLUCOSE 94 mg/dl (70-220); POTASSIUM 4.6 mmol/L (3.5-5.1); SODIUM 140 mmol/L (135-144); TOTAL PROTEIN 7.6 g/dl (6.1-8.1)
[2019-01-17 10:03] LABS: INR 0.87; PROTIME 11.9 Sec (11.9-14.9); PT RATIO 0.9
[2019-01-17 10:04] LABS: PARTIAL THROMBOPLASTIN TIME 21.7 Sec (23.0-35.0)
[2019-01-17 10:13] LABS: TROPONIN-I < 0.012 ng/ml (0.000-0.120)
== END 2019-01-17 10:27 | disposition left against medical advice (07) ==
LOC: E/R 08:53
DX: R42 Dizziness and giddiness (principal); D64.9 Anemia, unspecified; R06.00 Dyspnea, unspecified
CPT/HCPCS: 36415; 71045; 80053; 84484; 85025; 85610; 85730; 86850; 86900; 86901; 93005; 99285-25